=== PATIENT | female | born 1940 | race Caucasian/White ===

== ENCOUNTER 2021-11-21 08:51 | Inpatient (IN) | payer MEDICARE ==
[~2021-11-21] VITALS: Ht 170.2 cm; Wt 52.0 kg
[2021-11-21] MEDS ORDERED: FLEET GLYCERIN (08:55)
[2021-11-21] MEDS ORDERED: MENT118G TP (08:56)
[2021-11-21] MEDS ORDERED: WOMEN MULTIVITAMIN PO (09:00)
[2021-11-21] MEDS ORDERED: RIVA15TA PO (09:00)
[2021-11-21] MEDS ORDERED: LEVO25TA4 PO (09:00)
[2021-11-21] MEDS ORDERED: citalopram PO (09:00)
[2021-11-21] MEDS ORDERED: ALPR0.254 PO (09:00)
[2021-11-21] MEDS ORDERED: ALPR0.5T6 PO (09:00)
[2021-11-21] MEDS ORDERED: MAGNESIUM HYDROXIDE 2,400 MG/30 ML ORAL.SUSP. PO PRN (11:30)
[2021-11-21] MEDS ORDERED: MAG HYDROX/AL HYDROX/SIMETH 30 ML ORAL.SUSP PO PRN (11:30)
[2021-11-21] MEDS ORDERED: NON FORMULARY ITEM (Menthol (Biofreeze) 1 APP) TP PRN (11:45)
[2021-11-21] MEDS ORDERED: ALPRAZolam 0.5 MG TABLET PO PRN (11:45)
[2021-11-21] MEDS ORDERED: GLYCERIN ADULT 1 SUPP.RECT. PR PRN (11:45)
[2021-11-21] MEDS ORDERED: ALPRAZolam 0.25 MG TABLET PO PRN (11:45)
[2021-11-21 11:56] VITALS: BP 120/64
[2021-11-21 13:41] LABS: BASO % 1 % (0-3); EOS % 1 % (0-3); HEMATOCRIT 32.8 % (36.0-47.0); HEMOGLOBIN 10.7 g/dL (12.0-15.5); LYMPH # 0.8 x10^3/uL (1.0-4.8); LYMPH % 16 % (24-48); MEAN CORPUSCULAR HEMOGLOBIN 32 pg (25-35); MEAN CORPUSCULAR HGB CONC 33 g/dL (31-37); MEAN CORPUSCULAR VOLUME 98 fL (79-100); MONO # 0.4 x10^3/uL (0.0-1.1); MONO % 7 % (0-9); NEUT # 3.9 x10^3uL (1.8-7.7); NEUT % 75 % (31-73); PLATELET COUNT 263 x10^3/uL (140-400); RED BLOOD COUNT 3.34 x10^6/uL (3.50-5.40); RED CELL DISTRIBUTION WIDTH 16.1 % (11.5-14.5); WHITE BLOOD COUNT 5.2 x10^3/uL (4.0-11.0)
[2021-11-21 14:14] LABS: ALBUMIN 3.7 g/dL (3.4-5.0); CALCIUM 8.7 mg/dL (8.5-10.1); GFR 53.3; MAGNESIUM 2.2 mg/dL (1.8-2.4); POTASSIUM 3.8 mmol/L (3.5-5.1); TOTAL BILIRUBIN 0.4 mg/dL (0.2-1.0); TOTAL PROTEIN 7.3 g/dL (6.4-8.2)
[2021-11-21 15:49] VITALS: BP 128/84
[2021-11-21] MEDS: RIVAROXABAN 15 MG TABLET. PO SCH (17:00)
[2021-11-21] MEDS: ALPRAZolam 0.5 MG TABLET PO SCH (20:28)
[2021-11-21] MEDS ORDERED: ALPRAZolam 0.5 MG TABLET PO SCH (21:00)
[2021-11-21 22:12] LABS: THYROXINE 5.1 ug/dL (4.5-12.0)
[2021-11-21 23:07] LABS: HEMOGLOBIN A1C 5.7 % (4.8-5.6)
[2021-11-22 05:52] VITALS: BP 146/69
[2021-11-22] MEDS: LEVOTHYROXINE 25 MCG TABLET. PO SCH (07:30)
[2021-11-22] MEDS: MULTIVITAMIN with MINERAL TABLET. PO SCH (09:00)
[2021-11-22] MEDS: CITALOPRAM 10 MG TABLET. PO SCH (09:00)
[2021-11-22] MEDS: ALPRAZolam 0.5 MG TABLET PO SCH ×2 (09:00→20:39)
[2021-11-22 11:42] LABS: THYROID STIM HORMONE (TSH) 2.151 uIU/mL (0.358-3.740)
--- NOTE | 2021-11-22 13:33 | CONS ---
DATE OF CONSULTATION: 11/22/2021 ATTENDING PHYSICIAN: Dr. Lockhart. We are asked to see this patient for medical consultation. HISTORY OF PRESENT ILLNESS: The patient is the [id number] of Ursula Girard, who works on the unit. She goes by her middle name, Maryann. She is 81 years old. She has been at a retirement in [place], [place] for the last several months. She has become very paranoid. She is demented. She has some suicidal ideation. She is very delusional, does not want to live anymore, thinks she has been kidnapped and being held hostage, thinks her family has abandoned her. She is very confused and forgetful. She is admitted then for further treatment and evaluation. PAST MEDICAL HISTORY: Interesting, she has had paroxysmal atrial fibrillation, on chronic anticoagulation; hypothyroidism and a mitral valve repair in 08/2021. She has had mitral valvulotomy. History of migraine headaches and irritable bowel syndrome. CURRENT MEDICATIONS: Include the following: She is on scheduled alprazolam, Synthroid, menthol, Xarelto 15 mg daily, citalopram and p.r.n. Fleet Glycerin. ALLERGIES: She has no known drug allergies. SOCIAL HISTORY: She is a nonsmoker, nondrinker. FAMILY HISTORY: Unobtainable. REVIEW OF SYSTEMS: Unobtainable due to patient's confusion. PHYSICAL EXAMINATION: GENERAL: When I saw her, this is a pleasant female who appears very confused. INITIAL VITAL SIGNS: Showed a blood pressure of 128/84, pulse is regular. She is afebrile. Oxygen saturation 97% on room air. HEENT: Head is without trauma. Pupils are reactive. Sclerae nonicteric. The oropharynx is clear. LUNGS: Clear to auscultation. CARDIOVASCULAR: Regular heart tones. I did not appreciate any gallops or significant murmurs. Peripheral pulses are palpable and full. ABDOMEN: Soft. EXTREMITIES: Without edema. NEUROLOGIC: Profoundly confused and paranoid. SKIN: Warm and dry. PERTINENT LABORATORY STUDIES: Hemoglobin on admission was 10.7 g/dL with a white count of 5200. Electrolytes within normal range. Hemoglobin A1c 5.7. Transaminases were normal. ASSESSMENT: 1. This 81-year-old female has profound dementia with behavioral issues. 2. Paranoia with delusions. 3. History of mitral valve repair, hemodynamically stable. 4. Paroxysmal atrial fibrillation. 5. Chronic anticoagulation. 6. Hypothyroidism, on replacement. RECOMMENDATIONS: 1. This patient has been seen as medically stable from my standpoint. 2. I reviewed her medication. These should be continued as scheduled. Thank you again for asking me to see the patient for medical consultation. We should gladly follow along closely during her inpatient stay. LONI DR: Roxi TID: [id number] CC: BERNADETTE MENDIETA MD
--- NOTE | 2021-11-22 13:36 | PN ---
DATE: 11/22/2021 SUBJECTIVE: The patient was seen today, met with the staff. Chart was reviewed and also covering for Dr. Rudd. Staff reports increased confusion, social withdrawal. She was able to orient to her surroundings. She knew that she was in the hospital, but cannot remember the name. The patient also highly anxious and nervous, admits she is upset and angry because she is here and also she has no awareness of her family members, even she does not know whether she has a son or not. The patient's behavior fluctuates. The patient also having difficulty identifying her feelings. The patient has made repeated statements. She does not want to live anymore, but denies that she is depressed. The patient is having difficulty coping with changes in her life including her significant cognitive deficits dealing with multiple medical issues and also being suspicious at times, not trusting anyone. OBSERVATION: VITAL SIGNS: Temperature 98.9, blood pressure 146/69, pulse 83, respirations 16, O2 sat 96%. GENERAL: Slept about 7 hours last night. The patient is not having any physical complaints. The patient has been staying in bed most of the time, isolating herself, interacts with the staff fairly well. The patient's appetite is fair. CURRENT MEDICATIONS: The patient's current medications include Celexa 10 mg daily, Xanax 0.25 mg twice a day, olanzapine 2.5 mg q. 2 hours p.r.n. The patient is also on Celexa 10 mg daily. The patient is not having any side effects. The patient continues to be under observation. No major changes in medication she had. LABORATORY DATA: The patient's lab reviewed. Her hemoglobin was 10.7. The patient's hemoglobin A1c was 5.7. ALT was 81, alkaline phosphatase 150. ASSESSMENT: Major neurocognitive disorder, most likely Alzheimer's versus vascular with depression and behavioral problems. PLAN: To continue with the current treatment plan. LENGTH OF STAY: 7-[address]: Shayne TID: [id number]
[2021-11-22 15:43] VITALS: BP 115/76
[2021-11-22] MEDS: RIVAROXABAN 15 MG TABLET. PO SCH (17:00)
--- NOTE | 2021-11-22 17:51 | PSYEV ---
DATE OF SERVICE: 11/21/2021 PSYCHIATRIC EVALUATION DATE OF SERVICE: 11/21/2021. REASON FOR ADMISSION: This 81-year-old single female was [facility] for emergency stabilization of acute psychiatric crisis. The patient apparently was brought here from home and she was at [facility] for a period of time. According to the staff, she tried to elope, planning to call the police, sundowning and being delusional and claims that she lost her identity. The patient also made statement that she was kidnapped, she did not know about her son or family and also feeling paranoid, not sleeping, fearful. CHIEF COMPLAINT: "I'm not sure of myself, even I am not sure it's me. I do not have any family. I had a son. I want to be safe and I do not want to prolong my life anymore. It all started after I had the surgery for mitral valve replacement, apparently I had to be hospitalized twice and I was told my problem started since then.? Apparently, she had surgery in 08/2021. The patient apparently has been at the [facility] just for 1 week. The patient is currently confused, somewhat delusional, not understanding what is going on. She is able to orient herself briefly and she knew that it was [facility] and the patient states she has been experiencing all kind of symptoms, not being real, and also feeling that people are against her and also admits to having nervous breakdown a couple of times. HISTORY OF PRESENT ILLNESS: The patient apparently came from an assisted living facility where she was for a week, prior to that she was living by herself. The patient seems to have a lot of physical problems lately. The patient also has seen a neurologist, had a CT scan of the head, which showed no acute changes, but indicative of changes in white matter consistent with age. The patient denies of having had any stroke. The patient states she is originally from [place], was for 45 years ____ , apparently, they travelled a lot. She is a RN, did different work in nursing. 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 The patient stated she had a twin, one , and now claims she has no contact with her son, even she does not know where he is. PAST MEDICAL HISTORY: The patient has a history of atrial fibrillation, recent mitral valve replacement, hypothyroidism. Apparently, she had thyroidectomy, removed two-thirds of her thyroid. She also had a MitraClip in 07/2021, history of migraine headaches, IBS. The patient also had problems with cognitive disorder lately and recent acute confusion, disorientation and loss of identity. PAST PSYCHIATRIC HISTORY: The patient denies that she had been on any psychiatric treatment in the past and she was very active, she used to stay happily with the family. The patient recently started on Xanax 0.25 mg twice a day and p.r.n. and was supposed to be increased to 0.5 mg twice a day starting from tomorrow since she was at the [facility]. PSYCHOSOCIAL HISTORY: The patient is originally from [facility]. She is for 45 years. She had twins, one . The patient apparently did fairly well, and according to her, her problems started in the last few months and she relates worsening of her problems since she had surgery in 08/2021. The patient also admits she had some problems with her cognition even prior to that. CURRENT MEDICATIONS: Include citalopram 10 mg at night, Xanax 0.25 mg twice a day. The patient apparently had a full lab workup prior to coming here. SUBSTANCE ABUSE HISTORY: The patient denies of having had any problems with substance abuse, drank occasionally, but she has not had any alcohol for several years. The patient denies of any physical, emotional, or sexual abuse in the past. MENTAL STATUS EXAMINATION: The patient appears younger than her stated age, alert, oriented to her surroundings, able to make eye contact. The patient started struggling when she was talking about her problems. She did not know what was going on with her. She is not able to understand ____ feeling this way and she did not know her name at one time and apparently had altered mental status a couple of times. Her speech was clear, monotone, decreased rate and rhythm. Her affect and mood showed she is withdrawn, some blunting of affect, somewhat puzzled and also guarded and having difficulty understanding her current situation and also she feels she lost touch with the whole family. Her speech was monotone, but no evidence of any speech impediment. Affect and mood showed she is anxious, nervous, withdrawn, constricted affect. The patient also made statements frequently that she wanted to and also corrected herself and said she does not want to prolong her life, she does not want to be DNR. The patient does admit she has been delusional, paranoid, at times having hallucinations because everything was unreal to her. It appears the patient's symptoms persisted for the past several months, but the patient has no clear diagnosis of dementia. She is oriented to her surroundings. Her memory is impaired for recent events. The patient was able to recall a few things from the past. The patient was not able to do any serial sevens. The patient is having difficulty with recall. The patient is lacking insight to her problems. Her judgment is impaired. The patient appears to be functioning on an average level of intelligence. 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 She was able to manage and claims that after she had a surgery in August her problems gotten really worse. The patient apparently has a supportive family. WEAKNESSES: The patient is currently confused, somewhat delusional and paranoid, and exhibiting marked cognitive deficits. ADMITTING DIAGNOSES: AXIS: 1. Major neurocognitive disorder, most likely Alzheimer's versus vascular, with depression, delusions and behavior problems. 2. Generalized anxiety disorder. AXIS II: None. AXIS III: As stated above. INITIAL TREATMENT PLAN: The patient was admitted to inpatient program at [facility] for further observation. The patient will be seen by the neurologist and also patient's lab will be monitored. The patient will continue on Xanax 0.25 mg twice a day and we will consider starting her on a mood stabilizer if she continues to exhibit increased confusion and increased psychomotor activity and elopement risk. The patient also to continue on her citalopram 10 mg daily. The patient is encouraged to attend all the activities including individual therapy, group therapy and activity therapy. ESTIMATED LENGTH OF STAY: 7-10 days. BARBRA/ERICA/PRAVEENA DR: Shayne TID: [id number]
[2021-11-23 05:51] VITALS: BP 147/66
[2021-11-23] MEDS: LEVOTHYROXINE 25 MCG TABLET. PO SCH (07:30)
[2021-11-23] MEDS: MULTIVITAMIN with MINERAL TABLET. PO SCH (08:24)
[2021-11-23] MEDS: ALPRAZolam 0.5 MG TABLET PO SCH ×2 (09:00→19:52)
[2021-11-23] MEDS: CITALOPRAM 10 MG TABLET. PO SCH (09:00)
[2021-11-23 15:44] VITALS: BP 123/78
[2021-11-23] MEDS: RIVAROXABAN 15 MG TABLET. PO SCH (17:00)
--- NOTE | 2021-11-23 21:57 | PN ---
DATE: 11/23/2021 SUBJECTIVE: The patient was seen today, met with the staff, chart reviewed. Staff reports significant change with her behavior since last night. Apparently, they have to more in a quiet area because of her agitation, paranoia, being delusional, also threatening staff, yelling, screaming, banging the door, refusing to let anybody come to her room and also intimidating other residents. The patient also refused her medications, getting angry with the staff, not trusting anyone. The patient also refused to deal with anybody here and she did not think that the doctor is the real doctor, not trusting anyone. She also made statement they are coming after her, also her body parts and money. She is also demanding to see her family. The patient during the assessment became very angry, upset and not wanting anyone. She is confused, very delusional and paranoid and also increased psychomotor activity. OBSERVATION: VITAL SIGNS: Temperature 98.0, blood pressure 149/78, pulse 71, respirations 16, O2 sat 100%. GENERAL: Slept about 6 hours last night. The patient's appetite decreased. CURRENT MEDICATIONS: Xanax 0.25 mg twice a day. Escitalopram was increased to 20 mg from 10 mg daily. Also started on Abilify 5 mg daily and Zyprexa 2.5 mg q. 2 hours p.r.n. LABORATORY DATA: The patient's lab reviewed. ASSESSMENT: 1. Psychotic disorder, unspecified. 2. Major neurocognitive disorder with psychotic symptoms. 3. Mood disorder, unspecified. PLAN: Continue with the treatment. The patient will be under close observation. LENGTH OF STAY: 7 to [address]: Shayne TID: [id number]
[2021-11-24] MEDS: LEVOTHYROXINE 25 MCG TABLET. PO SCH (05:28)
[2021-11-24 05:47] VITALS: BP 147/68
[2021-11-24 05:51] LABS: BACTERIA,URINE FEW /HPF (0-FEW); BILIRUBIN,URINE NEG (NEG); CLARITY,URINE HAZY; COLOR,URINE YELLOW; GLUCOSE,URINE NEG (NEG); NITRITE,URINE NEG (NEG); RBC,URINE 0 /HPF (0-2); SQUAMOUS EPITHELIAL CELL,UR FEW /LPF; UROBILINOGEN,URINE 0.2 mg/dL (0.2 mg/dL)
[2021-11-24] MEDS: MULTIVITAMIN with MINERAL TABLET. PO SCH (07:36)
[2021-11-24] MEDS: ALPRAZolam 0.5 MG TABLET PO SCH ×2 (07:46→19:48)
[2021-11-24] MEDS: CITALOPRAM 20 MG TABLET. PO SCH (07:46)
[2021-11-24] MEDS ORDERED: ARIPiprazole 5 MG TABLET PO SCH (09:00)
[2021-11-24 15:58] VITALS: BP 152/65
[2021-11-24] MEDS: RIVAROXABAN 15 MG TABLET. PO SCH (16:44)
--- NOTE | 2021-11-24 21:39 | PN ---
DATE: 11/24/2021 SUBJECTIVE: The patient was seen today, met with the staff. Chart was reviewed. Also covering for Dr. Rudd. Staff reports slight improvement today, did not have any major psychotic symptoms, but still labile at times. The patient apparently took her medications without assistance and during breakfast started yelling at staff about wanting the doors open so that she can leave the unit, but she was able to redirect today. The patient recently exhibited severe problems including making statements "I don't want to be set on fire. I am going to burn." The patient also making inappropriate comments, confused, very delusional, paranoid, not trusting anyone at times. The patient had episodes of acute psychotic episodes where she thinks she is going to and also she made a statement "I am in a chamber." CURRENT MEDICATIONS: The patient's current medications reviewed, includes Abilify 10 mg daily, Celexa 20 mg daily, Xanax 0.25 mg twice a day, olanzapine 2.5 mg q. 2 hours p.r.n. ASSESSMENT: 1. Psychotic disorder, unspecified. 2. Major neurocognitive disorder with psychotic features. 3. Mood disorder, unspecified. PLAN: Continue with the current treatment. The patient's Abilify to be increased to 10 mg daily and we will consider switching to Latuda if she does not respond to Abilify and continue to manifest acute psychotic symptoms. LENGTH OF STAY: 7-10 days. MEG VARGAS: Shayne TID: [id number]
[2021-11-24] MEDS: traZODone 50 MG TABLET. PO PRN (22:28)
[2021-11-25 05:30] VITALS: BP 152/82
[2021-11-25] MEDS: LEVOTHYROXINE 25 MCG TABLET. PO SCH (05:44)
[2021-11-25] MEDS: MULTIVITAMIN with MINERAL TABLET. PO SCH ×2 (07:53→09:00)
[2021-11-25] MEDS: CITALOPRAM 20 MG TABLET. PO SCH (07:53)
[2021-11-25] MEDS: ALPRAZolam 0.5 MG TABLET PO SCH ×2 (07:54→20:03)
[2021-11-25] MEDS: ARIPiprazole 10 MG TABLET PO SCH (07:55)
[2021-11-25] MEDS: ACETAMINOPHEN 325 MG TABLET PO PRN ×2 (11:30→12:55)
--- NOTE | 2021-11-25 12:24 | PN ---
DATE: 11/25/2021 SUBJECTIVE: The patient was seen today, met with the staff, chart reviewed. Also, covering for Dr. Rudd. Staff reports increased confusion, mostly in the evenings; extreme anxiety, agitation, delusional, also restless, also paranoid, not trusting anyone. The patient is constantly fearful that people are coming after her. The patient also feels that she is in danger. The patient also having auditory hallucinations. OBSERVATION: VITAL SIGNS: Temperature 97.6, blood pressure 152/82, pulse 89, respirations 18, O2 sat 94%. Slept about 5 hours last night. The patient's appetite fair. The patient is exhibiting increased psychotic symptoms, delusional thinking and also acting upon her delusions. The patient is not able to process information. She is disorganized with her thinking and also increased confusion and also having difficulty with short-term memory. The patient is not showing any involuntary movements or any speech impediment. The patient does exhibit significant mood swings. CURRENT MEDICATIONS: Include Abilify 10 mg daily, Xanax 0.25 mg twice a day, Celexa 20 mg daily. She is also on olanzapine 2.5 mg q. 2 hours p.r.n. ASSESSMENT: 1. Psychotic disorder, unspecified. 2. Major neurocognitive disorder with psychotic features, also rule out Lewy body disease. 3. Mood disorder, unspecified. PLAN: Continue with the current treatment. LENGTH OF STAY: Seven to ten days. ANA LAURA DR: Shayne TID: [id number]
[2021-11-25 15:38] VITALS: BP 166/87
[2021-11-25] MEDS: RIVAROXABAN 15 MG TABLET. PO SCH (17:00)
[2021-11-25] MEDS: traZODone 50 MG TABLET. PO PRN (20:02)
[2021-11-26 06:02] VITALS: BP 147/72
[2021-11-26] MEDS: LEVOTHYROXINE 25 MCG TABLET. PO SCH (06:14)
[2021-11-26] MEDS: ALPRAZolam 0.5 MG TABLET PO SCH (08:51)
[2021-11-26] MEDS: METHYL SALICYLATE/MENTHOL TOPICAL OINTMENT 57GM TUBE. TP PRN (08:51)
[2021-11-26] MEDS: ACETAMINOPHEN 325 MG TABLET PO PRN (08:51)
[2021-11-26] MEDS: ARIPiprazole 10 MG TABLET PO SCH (08:51)
[2021-11-26] MEDS: MULTIVITAMIN with MINERAL TABLET. PO SCH (08:51)
[2021-11-26] MEDS: CITALOPRAM 20 MG TABLET. PO SCH (08:51)
--- NOTE | 2021-11-26 10:42 | CONS ---
DATE OF CONSULTATION: 11/25/2021 NEUROLOGY CONSULTATION REFERRING PHYSICIAN: Dr. Isabelle Sosa. REASON FOR CONSULTATION: Mental status changes and abnormal head CT scan. HISTORY OF PRESENT ILLNESS: This is an 81-year-old right-handed female who was [facility] on account of acute mental status changes as she became confused, disoriented, and delusional along with her persistent paranoid thoughts. According to the patient, she underwent mitral valve in 08/2021. Subsequently, she was transferred to [facility] for 1 week before she went home as she by self at home, she starts becomes depressed, anxious and paranoid. She tried to call the police and tried to elope. She became realistic about herself. She feels very anxious and feared that everybody try to get rid of her and hurt her. Neuro consult was requested as the patient started having acute mental status changes. She has been seen by a neurologist at [facility] and a head CT scan was performed and revealed evidence of left posterior limb of the internal capsule infarct; however, the patient denies any history of stroke or any neurological deficits. She denies headaches, visual disturbances, chest pain, shortness of breath or palpitation, dysarthria or dysphagia. She denies weakness or falls. PAST MEDICAL HISTORY: Significant for atrial fibrillation, status post mitral valve replacement in 08/2021, hypothyroidism and status post partial thyroidectomy several years ago, intermittent migraine-like headaches. PAST PSYCHIATRIC HISTORY: Consistent with depressions, anxiety and intermittent behavior disturbances. FAMILY HISTORY: Not obtainable. SOCIAL HISTORY: The patient stated she is single. She lives alone. She used to be a traveling nurse. She has 1 Living son. She denies smoking, alcohol drinking or illicit drug use. CURRENT MEDICATIONS: Citalopram, Xarelto 50 mg daily, Abilify 10 mg daily, citalopram 20 mg daily, levothyroxine 25 mcg daily, multivitamins and calcium, Xanax 0.25 mg b.i.d., olanzapine 2.5 mg q. 2 hours p.r.n. for agitation, and Tylenol p.r.n. ALLERGIES: No known drug allergies. REVIEW OF SYSTEMS: A 10-point review of system was performed as mentioned above in history of present illness, otherwise unremarkable. PHYSICAL EXAMINATION: GENERAL: Well-developed, well-nourished female in no acute distress. VITAL SIGNS: Blood pressure 166/87, respiratory rate 16, pulse is 94 and regular, oxygen saturation 96% on room air. HEENT: Normocephalic, atraumatic. otherwise unremarkable. NECK: Supple, negative for carotid bruit, lymphadenopathy or thyromegaly. LUNGS: Clear to A and P. CARDIOVASCULAR: Regular rhythm. Normal S1, S2. There is no S3, S4 murmur. ABDOMEN: Soft. Bowel sounds positive. EXTREMITIES: Negative for cyanosis, clubbing or pedal edema. However, superficial bleeding was noted over both legs, probably due to scratching and being on Xarelto. NEUROLOGIC: Mental Status: The patient is alert and oriented to herself and she knows she is in the hospital. The speech is somewhat fluent. There is no language dysfunction. The patient recalls 2/3 immediately and 1/3 after 1 and 3 minutes. Judgment and abstracting thinking are fair. The patient denies hallucination or delusion. Cranial nerves: Visual king are full. The pupils are reactive to light and accommodation. The extraocular movements are intact. There is no nystagmus. There is no facial motor or sensory deficit. Hearing is intact bilaterally. The palate is elevated symmetrically. Sternocleidomastoid muscles are powerful bilaterally. The patient shrugs her shoulders symmetrically, protrudes her tongue in the midline without fasciculation or atrophy. Motor exam: No focal muscle bulk wasting. The tone is normal. The strength is 5/5 throughout. Sensory examination revealed normal pinprick and light touch, vibratory and position senses. Deep tendon reflexes were symmetric and hypoactive without pathology responses. Gait and coordination were normal. DIAGNOSTIC DATA: Previous head CT scan revealed evidence of generalized cerebral and cerebellar atrophy with small vessel ischemic changes along with left internal capsule infarct. LABORATORY DATA: CBC revealed white blood cells of 5.2 thousand, hemoglobin 10.7, hematocrit 32.8, platelet count 263,000. Chemistry revealed sodium of 140, potassium 3.8, chloride 102, CO2 of 27, BUN 21, creatinine 1, glucose 132. Hemoglobin A1c is 5.7. Magnesium and iron are normal. Liver enzymes are elevated, ALT at 81. Lipid profile revealed high triglycerides at 215 with high cholesterol at 298 with high LDL 175. Normal vitamin B12 at 510 with slightly low vitamin D and normal thyroid profile. D-dimer is high at 0.65. Urinalysis is trace leukocyte esterase with white blood cells of 5-10. SARS-CoV-2 PCR not detected. IMPRESSION: 1. Abnormal previous head CT scan consistent with left internal capsule lacunar infarct with generalized cerebral and cerebellar atrophy without significant neurological deficits on neurological examination. 2. Persistent atrial fibrillation and status post mitral valve replacement without significant cardiac symptoms as chest pain or shortness of breath. 3. Multiple medical problems include hyperlipidemia, history of hypothyroidism, and anemia. 4. Dementia, probably of Alzheimer type in moderate severity. 5. Multiple psychiatric problems include anxiety disorders, intermittent psychosis and possible underlying depression. 6. Questionable urinary tract infection. RECOMMENDATIONS: 1. Continue with current medical and psychiatric care. 2. The patient should be on cholesterol-lowering medication Lipitor. 3. We will repeat urinalysis to rule out urinary tract infection. MONTRELL/ADRIANA DR: Iman TID: [id number]
--- NOTE | 2021-11-26 12:56 | TX PLAN ---
Interdisciplinary Tx Plan Admission Information Nov 21, 2021 at 08:51 Legal Status (on Admission): Voluntary DPOA/Guardian Name: Huey Hurley) and Ursula Nesscele Contact Phone Number: Sergio Rafal)[phone] or Ursula (C)[phone] Other Contact Name: Fernanda Cedillo Other Contact Phone: Fernanda (Poonam)[phone] (C)[phone] Verified Code Status: DNR Allergies: Coded Allergies: No Known Drug Allergies (Unverified , 11/21/21) Diagnoses Primary Diagnosis: 1. Major neurocognitive disorder, most likely Alzheimer's versus vascular, with depression, delusions and behavior problems. 2. Generalized anxiety disorder. Reasons for Admission: Delusions, Agitated, Sig. Change Sleep, Anxiety/Panic, Suicidal ideation, Suspicious/paranoid, Confusion/Disoriented Problem in Patient's Words: Per pt, at time of assessment, she believed she was in the hospital to be treated for invisible strokes and that she is to have a proceedure "on the other side of that wall". Also, pt believes that she has been harmful to others thinking that she has committed a horrible crime. Furthermore, pt has expressed that "they" have told her that she doesn't have any family and that Sergio is not her son and that Vernon and Sergio are not . Additional Admission Comments: Per intake record, pt attempting to elope facility, voiced plans to call police, sundowning, experiencing SI, doesn't want to live, delusional, thinks she has been kidnapped or being held hostage, thinks she doesn't have a family and has been abandoned, paranoid, and not sleeping. Problems Active Problems: Delusions, agitation, refusing medications, paranoia, suspicious, confusion, disorganization, poor sleep Inactive Problems: None Pt Strengths/Limitations Ability for Collins: Poor Cognitive Functioning/Ability: Fair Communication Skills/Ability: Fair Financial Resources: Good Insight/Judgement: Poor Intellectual Ability: Good Physical Health: Poor Social Skills: Fair Stability in Family: Good Stability in School/Work: Good Verbal Skills: Good Discharge Criteria Discharge Criteria: Able meet basic life need, No need for close observ., Able to meet health needs, Adequate arrangements @DC, Adequate self-care, Verbal commit med comply, Improved behavior, Improved mood/thought Other Discharge Comments: None at this time. Preliminary Discharge Plan Preliminary DC Plan: Placement Needed, Current Living Arrange. Initial D/C Plan Pt will plan to return to current living facility at time of discharge vs finding alternative living facility depending on pt progress throughout treatment here at [facility]. Identified Discharge Needs: Pending course of treatment. Currently Utilized Resources Currently Utilized Resources/P: PCP/Nurse Practitioner-Janine Chisholm Son-Sergio CHINMAY-Ursula Grandson-Viraj Granddaughter-Leanne Referrals Community Resources: None at this time. Identified Problems/Hx/Goals Objectives/Short-Term Goals Short Term Goals: Control abnormal behavior, Dec. Anxiety/Panic, Dec. Hallucination/Delus, Dec. Symp. Depression, Medication Stabilization, Monitor Med Effects, No Suicidal/Raffy. ideation, Prevent Deterioration, Promote Coping Skill Short Term Goals in Patient's: Per pt, "I would like to find out the truth." Per family, they would like for pt's paranoia and delusional thinking to decrease. They feel that pt needs to be evaluated to determine cause of recent behavioral changes and find a course of treatment ideal for pt needs. Interventions/Frequency Staff Interventions/Frequency&: Psychiatry to assess pt three times per week for medication management. Nursing to assess behaviors, monitor medications, and complete 15 minute checks daily. Social work to see pt at least two times weekly to aid in return to placement. Activities to encourage pt to participate in group activities daily. 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 Education: Pt graduated high school and later graduated from [employer] with a nursing degree. Community Follow-up PCP Possibly f/u with whitewasher and psychiatrist. Community Provider/Family Inpu: Pt provided input in her assessment as did family. Treatment Plan Explained Patient/[place] Professional had this treatment plan explained to him/her as indicated by the signature below and has been given the opportunity to ask questions and make suggestions: Date: Patient/[place]ake Professional Signature: Additional Comments Treatment plan was completed on 11/25/21 and entered on 11/26/21. LUISA BLANCO Nov 26, 2021 12:56
[2021-11-26] MEDS: RIVAROXABAN 15 MG TABLET. PO SCH (17:27)
--- NOTE | 2021-11-27 03:40 | PN ---
DATE: 11/26/2021 SUBJECTIVE: The patient was seen today, met with the staff, chart reviewed. Also, covering for Dr. Rudd. Staff reports continued behavior problems, inability to follow directions, very delusional, paranoid, constantly making a statement that she is going to be burnt alive here and also while talking she said "I could hear the matchstick being light up." The patient also apprehensive, guarded, scanning her environment constantly, as though she is having either visual or auditory hallucinations. The patient constantly making a statement "I want to , I don't want to be burnt alive and I don't want to be taken advantage of by people" and also previously talked about people are trying to take her body parts. I also reviewed the medical records from [facility] where she was hospitalized in 07/2021. At that time, she had problems with atrial fibrillation and also she had a CT scan, which showed mild cerebral volume loss and minimal nonspecific white matter disease, likely chronic small vessel ischemia, also chronic lacunar infarct in the posterior limb, left internal capsule. The patient also had multiple physical problems including atrial fibrillation. Also had hyperlipidemia, hypertension, hypothyroidism, IBS, mitral regurgitation, renal cell carcinoma, skin cancer, SVT, tricuspid regurgitation. Also mentioned about alcohol, she has been drinking 2 glasses daily, total of 14 glasses per week for several years. OBSERVATION: VITAL SIGNS: Temperature 98.0, blood pressure 147/72, pulse 86, respirations 16, O2 sat 95%. GENERAL: Slept about 8 hours last night. LABORATORY DATA: The patient's lab reviewed. The patient's hemoglobin was 10.7, RBC 3.3. The patient's hemoglobin A1c was 5.7. Patient's triglycerides were elevated to 15. Cholesterol 298, LDL 175, and HDL 80. The patient's sodium was 140, potassium 3.8. Apparently when she was hospitalized to in July, her sodium level was 117. The patient denies of having had any seizures. The patient's liver enzymes were also elevated. ALT 81, alkaline phosphatase 150. CURRENT MEDICATIONS: Include Abilify 10 mg daily, trazodone 50 mg at night, Celexa 20 mg daily, Xanax 0.25 mg twice a day. She is also on olanzapine 2.5 mg q. 2 hours p.r.n. ASSESSMENT: 1. Psychotic disorder, unspecified. 2. Major neurocognitive disorder with psychotic features. 3. Mood disorder, unspecified. PLAN: Continue with Abilify 10 mg daily at this time and the patient continues to have problems with delusions, behavior problems. We will consider switching to Latuda. KARLY DR: Shayne TID: [id number]
[2021-11-27] MEDS: LEVOTHYROXINE 25 MCG TABLET. PO SCH (05:37)
[2021-11-27 06:04] VITALS: BP 160/74
[2021-11-27] MEDS: MULTIVITAMIN with MINERAL TABLET. PO SCH (08:17)
[2021-11-27] MEDS: ARIPiprazole 10 MG TABLET PO SCH (08:17)
[2021-11-27] MEDS: CITALOPRAM 20 MG TABLET. PO SCH (08:17)
[2021-11-27] MEDS: ALPRAZolam 0.25 MG TABLET PO SCH ×2 (08:17→20:52)
[2021-11-27 15:38] VITALS: BP 155/77
[2021-11-27] MEDS: LURASIDONE 40 MG TABLET. PO SCH (17:32)
[2021-11-27] MEDS: RIVAROXABAN 15 MG TABLET. PO SCH (17:32)
[2021-11-27] MEDS: ACETAMINOPHEN 325 MG TABLET PO PRN (22:51)
[2021-11-27] MEDS: traZODone 50 MG TABLET. PO PRN (22:51)
[2021-11-28] MEDS: ALPRAZolam 0.25 MG TABLET PO SCH (05:40)
[2021-11-28] MEDS: LEVOTHYROXINE 25 MCG TABLET. PO SCH (05:41)
[2021-11-28 06:09] VITALS: BP 134/75
[2021-11-28 07:06] LABS: BASO % 1 % (0-3); EOS % 1 % (0-3); HEMATOCRIT 29.5 % (36.0-47.0); HEMOGLOBIN 9.8 g/dL (12.0-15.5); LYMPH # 0.5 x10^3/uL (1.0-4.8); LYMPH % 12 % (24-48); MEAN CORPUSCULAR HEMOGLOBIN 32 pg (25-35); MEAN CORPUSCULAR HGB CONC 33 g/dL (31-37); MEAN CORPUSCULAR VOLUME 97 fL (79-100); MONO # 0.5 x10^3/uL (0.0-1.1); MONO % 13 % (0-9); NEUT # 2.8 x10^3uL (1.8-7.7); NEUT % 73 % (31-73); PLATELET COUNT 200 x10^3/uL (140-400); RED BLOOD COUNT 3.05 x10^6/uL (3.50-5.40); RED CELL DISTRIBUTION WIDTH 15.5 % (11.5-14.5); WHITE BLOOD COUNT 3.8 x10^3/uL (4.0-11.0)
[2021-11-28 07:39] LABS: ALBUMIN 3.6 g/dL (3.4-5.0); ALBUMIN/GLOBULIN RATIO 1.4 (1.0-1.7); CALCIUM 8.4 mg/dL (8.5-10.1); CREATININE 0.9 mg/dL (0.6-1.0); GFR 60.2; POTASSIUM 3.6 mmol/L (3.5-5.1); TOTAL BILIRUBIN 0.3 mg/dL (0.2-1.0); TOTAL PROTEIN 6.2 g/dL (6.4-8.2)
--- NOTE | 2021-11-28 07:43 | PN ---
DATE: 11/27/2021 SUBJECTIVE: The patient was seen today, met with the staff, chart reviewed, also covering for Dr. Rudd. The patient is still delusional, restless, mostly at night, disorganized with thinking. The patient also chasing staff down the hallway and argumentative, but her behavior has improved this morning. The patient is much calmer, did not verbalize any of her delusions, but still suspicious, paranoid, continues to have psychotic symptoms. The patient was able to orient herself. She knew she was in the hospital. She knew it was October and the year was 2020. The patient is having difficulty recalling some of the events from the past. The patient was also confronted about her drinking ____ when she went to [facility] in 07/2021. The patient states usually she used to drink at least 2 drinks at night, but has not had a drink at least for the past 2 months. The patient's liver enzymes were slightly elevated. OBSERVATION: VITAL SIGNS: Temperature 97.4, blood pressure 160/74, pulse 63, respirations 16, O2 sat 96%. GENERAL: Slept about 8 hours last night. The patient's appetite is fair. LABORATORY DATA: The patient's lab reviewed. No change. ASSESSMENT: 1. Major neurocognitive disorder with psychotic symptoms. 2. Generalized anxiety disorder. 3. Mood disorder, unspecified. PLAN: Continue with the current treatment plan. The patient will continue on her Xanax 0.25 mg twice a day. The patient's Abilify to be decreased to 5 mg daily and she will be started on Latuda 60 mg in the evening. The patient will have repeat LFT including GGT and also blood ammonia level. LENGTH OF STAY: [address]: Shayne TID: [id number]
[2021-11-28] MEDS: MULTIVITAMIN with MINERAL TABLET. PO SCH (08:24)
[2021-11-28] MEDS: CITALOPRAM 20 MG TABLET. PO SCH (08:24)
[2021-11-28] MEDS: METHYL SALICYLATE/MENTHOL TOPICAL OINTMENT 57GM TUBE. TP PRN (08:24)
[2021-11-28] MEDS ORDERED: ARIPiprazole 5 MG TABLET PO SCH (09:00)
[2021-11-28] MEDS ORDERED: ALPRAZolam 0.25 MG TABLET PO PRN (13:15)
[2021-11-28 15:07] VITALS: BP 177/84
[2021-11-28] MEDS: RIVAROXABAN 15 MG TABLET. PO SCH (17:42)
[2021-11-28] MEDS: LURASIDONE 40 MG TABLET. PO SCH (17:43)
[2021-11-28] MEDS: CETIRIZINE HCL 10 MG TABLET PO SCH ×2 (18:30→20:19)
[2021-11-28] MEDS: traZODone 50 MG TABLET. PO PRN (20:19)
--- NOTE | 2021-11-28 21:11 | PN ---
DATE: 11/28/2021 SUBJECTIVE: The patient was seen today, met with the staff, chart reviewed. Staff reports some improvement yesterday. She slept better and also appears to be hallucinating at times and told the staff, she saw her . The patient continues to exhibit significant cognitive deficits. OBSERVATION: VITAL SIGNS: Stable. Her appetite and sleep have improved. The patient is steady with her gait. No falls. LABORATORY DATA: The patient's lab reviewed. CURRENT MEDICATIONS: Include Abilify 5 mg daily, Latuda 60 mg in the evening, Xanax 0.25 mg twice a day, trazodone 50 mg at night p.r.n., Celexa 20 mg daily and olanzapine 2.5 mg q. 2 hours p.r.n. ASSESSMENT: 1. Major neurocognitive disorder with psychotic symptoms. 2. Generalized anxiety disorder. 3. Mood disorder, unspecified. PLAN: Continue with the current treatment plan. The patient will be started on the Latuda 60 mg in the evening and also requesting for the lab including LFT and GGT. LENGTH OF STAY: [address]: Shayne TID: [id number]
--- NOTE | 2021-11-28 21:48 | PN ---
DATE: 11/27/2021 SUBJECTIVE: The patient denies any new medical or neurological complaints. OBJECTIVE: GENERAL: Well-developed, well-nourished female in no acute distress. VITAL SIGNS: Blood pressure 160/74, respiratory rate 16, pulse is 63, temperature 97.1, oxygen saturation is 96% on room air. HEENT: Normocephalic, atraumatic; otherwise, unremarkable. NECK: Supple, negative for carotid bruit, lymphadenopathy or thyromegaly. LUNGS: Clear to A and P. CARDIOVASCULAR: Regular rhythm. Normal S1, S2. There is no murmur . ABDOMEN: Soft. Bowel sounds positive. EXTREMITIES: Negative for cyanosis, clubbing or pedal edema. NEUROLOGIC: Mental status: The patient is alert and oriented x 2. The speech is fluent. There is no language dysfunction. The patient recalls 2/3 immediately and 1/3 after 1 and 3 minutes. Judgment and abstracting thinking are normal. The patient denies hallucination or delusion. Cranial nerves are intact. No focal motor or sensory deficits. Deep tendon reflexes were symmetric and hypoactive with absent Achilles responses. Gait and coordination are normal. LABORATORY DATA: Lab was normal. IMPRESSION: 1. Persistent atrial fibrillations, status post mitral valve replacement. 2. Dementia, probably Alzheimer type of moderate severity. 3. Multiple medical problems include hyperlipidemia, hypothyroidism and anemia. 4. Multiple psychiatric problems include anxiety disorders and depressions and intermittent psychosis. 5. Questionable of urinary tract infections. RECOMMENDATIONS: Continue with current medical and psychiatric care. The patient is neurologically stable. YUE DR: Iman TID: [id number]
[2021-11-29] MEDS: LEVOTHYROXINE 25 MCG TABLET. PO SCH (05:37)
[2021-11-29 06:04] VITALS: BP 159/70
[2021-11-29 09:09] VITALS: BP 175/99
--- NOTE | 2021-11-29 10:43 | RAD ---
EXAM: AP View of the chest DATE: 11/29/2021 9:48 AM INDICATION: Reason: lung congestion / Spl. Instructions: / History: COMPARISON: No Prior FINDINGS/ IMPRESSION: The heart is borderline enlarged. Aortic calcifications are seen. Patchy opacities left lung base likely atelectasis or evolving consolidation. No pleural effusion or pneumothorax. Electronically signed by: Bayron Albright MD (11/29/2021 10:40 AM) CATIA
[2021-11-29 10:47] LABS: INFLUENZA A PATIENT NEGATIVE (NEGATIVE); INFLUENZA B PATIENT NEGATIVE (NEGATIVE)
[2021-11-29 11:40] LABS: BASO % 0 % (0-3); EOS % 0 % (0-3); HEMATOCRIT 28.7 % (36.0-47.0); HEMOGLOBIN 9.5 g/dL (12.0-15.5); LYMPH # 0.2 x10^3/uL (1.0-4.8); LYMPH % 5 % (24-48); MEAN CORPUSCULAR HEMOGLOBIN 32 pg (25-35); MEAN CORPUSCULAR HGB CONC 33 g/dL (31-37); MEAN CORPUSCULAR VOLUME 96 fL (79-100); MONO # 0.4 x10^3/uL (0.0-1.1); MONO % 8 % (0-9); NEUT # 4.5 x10^3uL (1.8-7.7); NEUT % 87 % (31-73); PLATELET COUNT 172 x10^3/uL (140-400); RED BLOOD COUNT 2.98 x10^6/uL (3.50-5.40); RED CELL DISTRIBUTION WIDTH 15.6 % (11.5-14.5); WHITE BLOOD COUNT 5.2 x10^3/uL (4.0-11.0)
[2021-11-29] MEDS: ACETAMINOPHEN 325 MG TABLET PO PRN ×2 (11:50→17:39)
[2021-11-29 11:53] LABS: ALBUMIN 3.3 g/dL (3.4-5.0); ALBUMIN/GLOBULIN RATIO 1.4 (1.0-1.7); CALCIUM 7.8 mg/dL (8.5-10.1); CREATININE 0.6 mg/dL (0.6-1.0); GFR 96.2; POTASSIUM 3.4 mmol/L (3.5-5.1); TOTAL BILIRUBIN 0.5 mg/dL (0.2-1.0); TOTAL PROTEIN 5.7 g/dL (6.4-8.2)
[2021-11-29] MEDS: CITALOPRAM 20 MG TABLET. PO SCH (11:57)
[2021-11-29] MEDS: MULTIVITAMIN with MINERAL TABLET. PO SCH (11:57)
[2021-11-29] MEDS: CETIRIZINE HCL 10 MG TABLET PO SCH (11:57)
[2021-11-29 14:30] VITALS: BP 177/60
[2021-11-29] MEDS: RIVAROXABAN 15 MG TABLET. PO SCH (17:34)
[2021-11-29] MEDS: LURASIDONE 40 MG TABLET. PO SCH (17:35)
[2021-11-29] MEDS ORDERED: CETI10TA16 PO (19:29)
[2021-11-29] MEDS ORDERED: METH114C3 TP (19:31)
[2021-11-29] MEDS ORDERED: ACET325T21 PO (19:32)
[2021-11-29] MEDS ORDERED: MAGN400O7 PO (19:33)
[2021-11-29] MEDS ORDERED: MAG30ORA2 PO (19:33)
[2021-11-29] MEDS ORDERED: MULT-638 PO ×2 (19:34→19:35)
--- NOTE | 2021-11-29 23:14 | PN ---
DATE: 11/29/2021 SUBJECTIVE: The patient was seen today, met with the staff, chart reviewed. The patient is currently on isolation because she has been having cough with the expectation, spitting out large amount of sputum. The patient was seen by Dr. Alas and he ordered a PCR test for COVID, also chest x-ray and throat culture. Staff reports that the patient has refused to eat today. She is tired, withdrawn, coughing, feeling weak, staying in bed all. OBSERVATION: VITAL SIGNS: Temperature, patient is not running fever since this morning, blood pressure 159/70, pulse 91, respirations 20, O2 sat 94%. GENERAL: Slept about 7 hours last night. The patient's appetite decreased. CURRENT MEDICATIONS: Abilify 5 mg daily, Latuda 60 mg in the evening, Xanax 0.25 mg twice a day, trazodone 50 mg at night p.r.n., Celexa 20 mg daily and olanzapine 2.5 mg q. 2 hours p.r.n. ASSESSMENT: Major neurocognitive disorder with psychotic symptoms, generalized anxiety disorder and mood disorder, unspecified. PLAN: Continue with the current treatment plan. The patient will be followed up by Dr. Alas, probably we will consider transferring to the medical unit for observation. The patient's Latuda to be decreased to 40 mg in the evening. LENGTH OF STAY: Seven days. YO VARGAS: Shayne TID: [id number]
--- NOTE | 2021-12-03 20:03 | DS ---
DATE OF DISCHARGE: 11/30/2021 FINAL DIAGNOSES: AXIS I: 1. Major neurocognitive disorder, most likely Alzheimer's versus vascular with depression, delusion and behavior problems. 2. Generalized anxiety disorder. AXIS II: None. AXIS III: History of atrial fibrillation, recent mitral valve replacement, hypothyroidism. The patient also had a thyroidectomy in the past, history of migraine headaches, IBS. The patient also developed a fever of 101.1 and also coughing. REASON FOR ADMISSION: This 81-year-old single female was admitted to [facility] for stabilization because of having psychiatric problems. She was brought here from home and she was staying at [facility] for a period of time. The patient tried to elope, planning to call the police, sundowning and also being delusional and paranoid and not sleeping well. HISTORY OF PRESENT ILLNESS: The patient, at the time of admission, was very delusional, paranoid, and she thought she is in danger, and was afraid she was going to and also she was afraid somebody is going to set fire and also talked about people coming for her body parts. HOSPITAL COURSE: The patient was under observation. The patient's behavior has gotten worse, has become very delusional, paranoid, disorganized thinking and also confusion, significant cognitive deficits. The patient's lab reviewed. The patient's white cell count was 3.8 and RBC was 3.05. The patient's calcium was 8.4. GGT 78, ALT 47, alkaline phosphatase 119, glucose 155, BUN 24. The patient continued on her home medications. The patient's behavior continued to worsen. The patient was started on Abilify 5 mg daily and increased to 10 mg with slight improvement, but behavior continued to worsen, become more delusional and paranoid and also severe confusion. Patient's Abilify was increased to 10 mg daily and also continued on her Celexa 20 mg daily and Xanax 0.25 mg twice a day and trazodone 50 mg at night p.r.n., also olanzapine 2.5 mg q. 2 hours p.r.n. The patient continued to decline and she was increasingly more confused, disorganized thinking, having visual and auditory hallucinations. The patient was started on Latuda 60 mg daily and her Abilify decreased to 5 mg daily and eventually discontinued. The patient then developed fever and also having cough and Dr. Alas decided to move her to [address] [place] [address] for further observation. Initially, COVID test was negative and also test for influenza was also negative. AFTERCARE PLAN: The patient was transferred to [address] [place] [address] for further observation and treatment and also advised to discontinue all her medications because family wanted her to be comfort care and did not want any aggressive treatment. QUE DR: Shayne TID: [id number]
== END 2021-11-29 19:45 | disposition short-term general hospital (02) | DRG 57 ==
LOC: GEROPSY 08:51
PROVIDERS: ADMIT Psychiatry & Neurology Psychiatry; ATTEND Psychiatry & Neurology Psychiatry
DX: G30.9 Alzheimer's disease, unspecified (principal); F02.81 Dementia in other diseases classified elsewhere, unspecified severity, with behavioral disturbance; I48.19 Other persistent atrial fibrillation; R45.851 Suicidal ideations; I10 Essential (primary) hypertension; F41.1 Generalized anxiety disorder; F32.A Depression, unspecified; E89.0 Postprocedural hypothyroidism; E78.5 Hyperlipidemia, unspecified; D64.9 Anemia, unspecified; Z20.822 Contact with and (suspected) exposure to COVID-19; I08.1 Rheumatic disorders of both mitral and tricuspid valves; K58.9 Irritable bowel syndrome, unspecified; G43.909 Migraine, unspecified, not intractable, without status migrainosus; Z85.828 Personal history of other malignant neoplasm of skin; Z95.2 Presence of prosthetic heart valve; Z86.73 Personal history of transient ischemic attack (TIA), and cerebral infarction without residual deficits; Z79.899 Other long term (current) drug therapy; Z79.01 Long term (current) use of anticoagulants; Z78.9 Other specified health status; Z85.528 Personal history of other malignant neoplasm of kidney
CPT/HCPCS: 36415; 71045; 80053; 80061; 81001; 82140; 82306; 82607; 82977; 83036; 83540; 83550; 83605; 83735; 84145; 84436; 84443; 84480; 85025; 85379; 86592; 87070; 87086; 87804; 87880; U0003; 97530

== ENCOUNTER 2021-11-29 18:43 | Inpatient (IN) | payer MEDICARE ==
[~2021-11-29] VITALS: Ht 170.2 cm; Wt 46.1 kg
[~2021-11-29 18:43] MED LIST: ALPR0.254 PO; ALPR0.5T6 PO; FLEET GLYCERIN; LEVO25TA4 PO; MENT118G TP; RIVA15TA PO; WOMEN MULTIVITAMIN PO; citalopram PO
[2021-11-29] MEDS ORDERED: CETI10TA16 PO (19:29)
[2021-11-29] MEDS ORDERED: METH114C3 TP (19:31)
[2021-11-29] MEDS ORDERED: ACET325T21 PO (19:32)
[2021-11-29] MEDS ORDERED: MAG30ORA2 PO (19:33)
[2021-11-29] MEDS ORDERED: MAGN400O7 PO (19:33)
[2021-11-29] MEDS ORDERED: MULT-638 PO ×2 (19:34→19:35)
[2021-11-29 19:49] VITALS: BP 126/70
[2021-11-29] MEDS ORDERED: MORPHINE SULFATE 2 MG/ML DISP.SYRIN. IV PRN (20:30)
[2021-11-29] MEDS ORDERED: ACETAMINOPHEN 325 MG TABLET PO PRN (20:30)
[2021-11-29] MEDS ORDERED: ACETAMINOPHEN 650 MG SUPP.RECT. PR PRN (20:30)
--- NOTE | 2021-11-29 20:39 | NUR ---
Nursing note: Pt admitted to Dr. lAas, inpatient comfort care. Written orders per dayshift received. Pt oriented to room, vitals obtained, resting comfortably in bed. Pt reports no pain at this time. Belongings cataloged and left with patient.
[2021-11-29 23:00] VITALS: BP 129/70
--- NOTE | 2021-11-30 00:13 | NUR ---
Nursing note: Spoke to Emil from [facility], earliest appt for admit nurse at 0800 11/30/21. Addendum: 12/01/21 at 0242 by RIZWAN RIVERS RN Approx. 2h later, received call from Emil from [facility], who stated he had been misinformed and earliest appt for admit nurse was 12/02/21 at 0800.
[2021-11-30 05:00] VITALS: BP 123/66
--- NOTE | 2021-11-30 09:15 | NUR ---
THIS RN SPOKE WITH PT DAUGHTER IN LAW ELIE. DAUGHTER IN LAW EXPRESSED THAT ALL SUMMER, PT HAS EXPRESSED THAT SHE IS NOT HAPPY WITH HER QUALITY OF LIFE. PT FAMILY HAS DECIDED THEY WANT HER TO BE COMFORT CARE WITH NO AGGRESSIVE TREATMENT. FAMILY INFORMED THAT HOSPICE IS NOT AVAILABLE UNTIL THURSDAY. FAMILY WAS WANTING TO SEE PT BUT INFORMED THEY ARE UNABLE TO UNTIL PT IS OFFICIALLY ON HOSPICE.
[2021-11-30 11:00] VITALS: BP 126/74
--- NOTE | 2021-11-30 11:51 | HP ---
DATE OF SERVICE: 11/30/2021 ADMIT DATE: 11/29/2021 HISTORY OF PRESENT ILLNESS: The patient is an 81-year-old female patient, who was [facility] for emergent stabilization of acute psychiatric crisis. The patient apparently was brought here from home and she was at [facility] for a period of time according to the staff as she tried to elope, planning to call the police, sundowning and being delusional and claims that she lost her identity. The patient also made statement that she was kidnapped. She did not know about her son or family and also feeling paranoid, not sleeping and fearful. She was swabbed for coronavirus and her coronavirus PCR was not detectable on 11/27/2021. Her influenza A and B and group A Streptococcus were negative. As she apparently developed a fever up to 101.1, we did lab work and her white cell count has risen from 3.8 to 5.2. Her chemistry was mostly unremarkable; however, her procalcitonin was high at 0.23 and her urinalysis showed that there is trace of leukocyte esterase, 5-10 wbc's and few bacteria. I spoke with the nursing staff, and apparently, her family opted for comfort care and did not want any aggressive oral antibiotic treatment and therefore, the patient was transferred to [address] [place] [address] for inpatient hospice care. The patient herself is demented, does not really give any useful information. I did not offer any complaint when I saw her. PAST MEDICAL HISTORY: Significant for atrial fibrillation, recent mitral valve replacement, hypothyroidism. She also has history of migraine headaches, irritable bowel syndrome, cognitive disorder lately and recent acute confusion and disorientation and loss of identity. PAST SURGICAL HISTORY: Significant for MitraClip in 07/2021 and more recently mitral valve replacement as well as thyroidectomy. PAST PSYCHIATRIC HISTORY: Significant for cognitive impairment that has worsened after surgery. SOCIAL HISTORY: She apparently and she had twins, one son was diseased. She does not smoke, drink alcohol or recreational drugs. PHYSICAL EXAMINATION: GENERAL: On arrival to the [address] [place] [address], the patient looked well and was clearly in no apparent respiratory distress. She was somewhat pale, not jaundiced, cyanosed, no lymphadenopathy, no thyromegaly, no jugular venous distention, no limb edema. VITAL SIGNS: Her heart rate was 86, blood pressure was 126/70, temperature was 99, respiratory rate was 18 and oxygen saturation was 95%. HEAD, EYES, EARS, NOSE AND THROAT: Normocephalic, atraumatic. NECK: Supple. HEART: Showed normal first and second heart sounds. No gallop, rub or murmur. CHEST: Showed central trachea, equal bilateral chest expansion, air entry, vesicular breath sounds, very few crepitation mostly in the left side posteriorly. I could not appreciate any rhonchi. ABDOMEN: Scaphoid, soft, nontender. NEUROLOGIC: She was demented, but without any obvious lateralizing sign. LABORATORY DATA: Her lab work done prior to transfer to [address] [place] [address] showed that her white cell count was 5200, hemoglobin 10, hematocrit 29, MCV 96 and platelet count of 172,000. Her serum sodium was 135, potassium 3.4, chloride 99, bicarbonate 28, anion gap of 8, BUN 13, creatinine 0.6. Estimated GFR was 96 mL per minute. Her glucose was 98, calcium was 7.8. Total bilirubin, AST, ALT, alkaline phosphatase were normal. Total protein 5.7, albumin 3.3, globulin was 1.4. Her procalcitonin was 0.23 ng/mL. Her chest x-ray showed that the heart is borderline enlarged, aortic calcifications are seen, patchy opacities left lung base, likely atelectasis or evolving consolidation. No pleural effusion or pneumothorax. Apparently, the family has opted not to treat the patient with antibiotics and opted for comfort and inpatient hospice care. We will consult the [facility] for evaluation and treatment. MERLYN/ULICES/ARLENE DR: Ashlee TID: [id number]
[2021-11-30 16:06] VITALS: BP 152/76
--- NOTE | 2021-11-30 16:23 | NUR ---
PT RESTED MOST OF THE DAY. PT WAS MOVED TO ROOM 109 TO BE CLOSER TO THE NURSES STATION. THIS RN WAS TOLD IN REPORT THAT PT IS ABLE TO GET OUT OF BED. PT HAS BEEN ASLEEP MOST OF THE DAY TODAY, NOT EATING OR DRINKING. WILL NOD HEAD AND OPEN EYES TO QUESTIONS. PT DENIES ANY PAIN. Addendum: 11/30/21 at 1741 by ZEV PACE RN PT ATE A SMALL PORTION OF DINNER. PT SAT UP IN BED AND FED HERSELF. PT REQUESTED THE BED HOGAN. PT STATES SHE IS TOO WEAK TO GET OUT OF BED TO USE THE RESTROOM. PT STATES "PLEASE KILL ME, I AM ALREADY HALF ". PT STATES HER FOOD WAS GOOD AND IS GRACIOUS OF STAFF HELP.
--- NOTE | 2021-11-30 19:48 | PN ---
DATE: 11/30/2021 SUBJECTIVE: The patient is an 81-year-old female patient who was transferred yesterday from [address] with the plan to go on inpatient hospice care. We did consult the [facility]; however, the earliest they can evaluate her was on 12/02/2021. However, the nursing staff stated that she is probably too functional to be accepted for inpatient hospice care; however, she continued to have low-grade fever, had had cough and some coarse breath sounds, particularly on the left side of her lungs. PHYSICAL EXAMINATION: GENERAL: When I examined her, she was pale, not jaundiced, cyanosed. No lymphadenopathy, no thyromegaly, no jugular venous distention. No limb edema. VITAL SIGNS: Her heart rate was 82, blood pressure was 123/65, temperature was 100, respiratory rate was 16 and oxygen saturation was 94%. HEAD, EYES, EARS, NOSE, AND THROAT: Normocephalic, atraumatic. NECK: Supple. HEART: Showed normal first and second heart sounds. No gallop or murmur. CHEST: Clear to auscultation. No crepitation or rhonchi. Chest shows central trachea, equal bilateral expansion, air entry, vesicular breath sounds with crepitation mostly in the left side posteriorly. I could not appreciate any rhonchi or wheezing. ABDOMEN: Slightly distended, soft, nontender. NEUROLOGIC: She is demented without any obvious lateralizing sign. ASSESSMENT AND PLAN: In summary, this is an 81-year-old female patient who was transferred from [facility] with aspiration pneumonia. She is here for comfort care. Family did not want any aggressive treatment or even antibiotic treatment, and would like to consider inpatient hospice care. The patient has multiple medical and psychiatric problems includin. Major neurocognitive disorder with psychotic symptoms. 2. Generalized anxiety disorder and mood disorder. PLAN: We will continue with all her psychotropic and other medications. She probably should be considered for hospice care in a long term facility. She does not certainly qualifies for inpatient hospice care. SAMANTA DR: Ashlee TID: [id number]
[2021-11-30 19:51] VITALS: BP 159/79
--- NOTE | 2021-12-01 02:42 | NUR ---
Nursing note: COVID PCR positive, patient remains in isolation. Pt rested through much of shift, minimally interactive; at 0235, pt bed alarm set off. Pt found in bed, sitting up and requesting water and to toilet. Pt ambulated to toilet SBA. Gown changed and pt given brief.
[2021-12-01 06:10] VITALS: BP 172/69
[2021-12-01] MEDS ORDERED: ACETAMINOPHEN 325 MG TABLET PO PRN (09:00)
[2021-12-01] MEDS ORDERED: FLEET GLYCERIN SCH (09:00)
[2021-12-01] MEDS ORDERED: MAGNESIUM HYDROXIDE 2,400 MG/30 ML ORAL.SUSP. PO PRN (09:00)
[2021-12-01] MEDS ORDERED: CITALOPRAM 10 MG PO SCH (09:00)
[2021-12-01] MEDS: CETIRIZINE HCL 10 MG TABLET PO SCH ×2 (09:00→09:28)
[2021-12-01] MEDS ORDERED: MAG HYDROX/AL HYDROX/SIMETH 30 ML ORAL.SUSP PO PRN (09:00)
[2021-12-01] MEDS ORDERED: NON FORMULARY ITEM (Menthol (Biofreeze) 1 APP) TP PRN (09:00)
[2021-12-01] MEDS: MULTIVITAMIN with MINERAL TABLET. PO SCH ×2 (09:00→09:28)
[2021-12-01] MEDS ORDERED: METHYL SALICYLATE/MENTHOL TOPICAL OINTMENT 57GM TUBE. TP PRN (09:30)
--- NOTE | 2021-12-01 09:34 | NUR ---
PT AWAKE THIS MORNING AND REQUESTING A SHOWER. PT HUNGRY FOR BREAKFAST BUT STATED THE FOOD WAS TOO SALTY. PT CRYING BECAUSE SHE MISSES HER DOG. PT EDUCATED TO STAY IN BED BUT CONTINUES TO GET OUT OF BED AND LOOK IN THE MIRROR. PT HEART RATE TACHYCARDIC WHEN PT IS UP. PT GIVEN THERA AND ALLERGY MEDICATION, BUT PT REFUSED TO TAKE THEM BECAUSE "I DON'T LIKE TO LOAD UP WITH PILLS, THEY MESS ME UP". SPOKE WITH PT DAUGHTER IN LAW AGAIN THIS MORNING. DAUGHTER IN LAW STATES THAT PT WAS PUT ON DIFFERENT PSYCH MEDICATIONS UPSTAIRS AND IS WORRIED THAT SHE MIGHT START HAVING DELUSIONS.
[2021-12-01 11:12] VITALS: BP 133/79
[2021-12-01] MEDS ORDERED: CITALOPRAM 20 MG TABLET. PO ONE (13:00)
[2021-12-01] MEDS ORDERED: ARIPiprazole 5 MG TABLET PO ONE (13:00)
[2021-12-01] MEDS ORDERED: LURASIDONE 40 MG TABLET. PO SCH (13:00)
[2021-12-01] MEDS: METOPROLOL TART IMMED RELEASE 25 MG TABLET. PO ONE ×2 (13:15→16:54)
[2021-12-01] MEDS: OLANZapine IM 10 MG VIAL. IM PRN (13:34)
--- NOTE | 2021-12-01 13:51 | NUR ---
PT BECAME AGITATED THIS AFTERNOON. PT PULLED OFF TELEMETRY AND PULLED OUT IV. DR. ADORNO AWARE AND DOWNGRADED PT TO MED/SURG STATUS, SINCE FAMILY WANTS COMFORT/END OF LIFE CARE. DR. ADORNO RESTARTED PSYCH MEDICATIONS FROM [facility]. PRN ZYPREXA IM GIVEN D/T NO IV ACCESS. ORAL PSYCH MEDICATIONS GIVEN THROUGH SYRINGE D/T LACK OF PT COOPERATION. PT STATES "THIS IS ON YOUR CONSCIENCE, I CAN'T BELIEVE YOU WOULD DO THIS, I WANT A RN CARDIOLOGY IN HERE, EVERYONE HERE IS A CROOK, I AM WORRIED ABOUT MY DOG, I AM NOT TAKING ANY MEDICATIONS". PT STRIPPED DOWN TO HER GOWN AND IS WALKING AROUND IN A SHEET. PT REFUSES TO PUT HER NON-SKID SLIPPERS ON. PT CONTINUES TO COME OUT OF ROOM WITH NO MASK, DESPITE BEING EDUCATED ON HER COVID POSITIVE TEST RESULT. PT COUGHED IN STAFF FACES WHEN TOLD SHE HAS COVID. PT TRIED TO GO INTO ANOTHER PT'S ROOM.
[2021-12-01 15:00] VITALS: BP 171/79
[2021-12-01] MEDS: RIVAROXABAN 15 MG TABLET. PO SCH (16:53)
[2021-12-01] MEDS: LURASIDONE 40 MG TABLET. PO SCH (16:55)
--- NOTE | 2021-12-01 17:04 | NUR ---
PT RESTED AFTER ZYPREXA WAS GIVEN. PT GIVEN ONE TIME DOSE OF METOPROLOL AT 1700 ORDERED FROM 1315, AFTER SHE HAD CALMED DOWN. THIS RN WAS ABLE TO GET THE PT TO TAKE HER MEDS BY ASKING THE PT TO TRY SOME POTATO SALAD WITH THE MEDICATIONS CRUSHED IN IT.
[2021-12-01 20:13] VITALS: BP 149/76
[2021-12-01] MEDS: ALPRAZolam 0.25 MG TABLET PO PRN (20:25)
[2021-12-01] MEDS: METOPROLOL TART IMMED RELEASE 25 MG TABLET. PO SCH (20:26)
--- NOTE | 2021-12-01 21:00 | PN ---
DATE: 12/01/2021 SUBJECTIVE: The patient is sitting up in bed, in no apparent distress. She was more awake this morning, requesting a shower. She is also hungry for breakfast, but stated the food was too salty. She is also very emotional, crying because she misses her dog. She refused to take her medication this morning stating that ____ her up; however, she denied any cough or phlegm. Denied any chest pain or shortness of breath. PHYSICAL EXAMINATION: GENERAL: When I examined her this morning, she looked well and was clearly in no apparent respiratory distress. No pallor, jaundice, cyanosis, or thyromegaly. No jugular venous distention. No lower limb edema. VITAL SIGNS: Her heart rate was 74, blood pressure is 133/79, temperature was 98.6, respiratory rate 20, and oxygen saturation was 96% on room air. HEAD, EYES, EARS, NOSE, AND THROAT: Showed normocephalic, atraumatic. NECK: Supple. HEART: Showed normal first and second heart sounds. No gallop, rub or murmur. CHEST: Shows central trachea, equal bilateral chest expansion, air entry. Vesicular breath sounds. No crepitation or rhonchi. ABDOMEN: Distended, soft, nontender. NEUROLOGIC: She is demented without any obvious lateralizing sign. ASSESSMENT: 1. Possible aspiration pneumonia; however, the family do not want any treatment and they were considering comfort and inpatient hospice care. However, patient does not really qualify for inpatient hospice care. 2. Major neurocognitive disorder with psychotic symptoms. 3. Generalized anxiety disorder, mood disorder. PLAN: To continue with all her psychotropic medications. Come tomorrow, we will consult our pillowcase sewer to see if the patient can be discharged to a prison on hospice care. AMM/EKT/NIS DR: Ashlee TID: [id number]
[2021-12-02 05:32] VITALS: BP 157/73
[2021-12-02] MEDS ORDERED: LEVOTHYROXINE 25 MCG TABLET. PO SCH (07:30)
[2021-12-02] MEDS: MULTIVITAMIN with MINERAL TABLET. PO SCH (08:03)
[2021-12-02] MEDS: ALPRAZolam 0.25 MG TABLET PO PRN ×3 (08:03→20:05)
[2021-12-02] MEDS: ARIPiprazole 5 MG TABLET PO SCH (08:03)
[2021-12-02] MEDS: CETIRIZINE HCL 10 MG TABLET PO SCH (08:03)
[2021-12-02] MEDS: METOPROLOL TART IMMED RELEASE 25 MG TABLET. PO SCH ×3 (08:03→20:08)
[2021-12-02] MEDS: CITALOPRAM 20 MG TABLET. PO SCH (08:04)
[2021-12-02] MEDS: LURASIDONE 40 MG TABLET. PO SCH (08:05)
[2021-12-02] MEDS: OLANZapine IM 10 MG VIAL. IM PRN ×2 (15:10→20:05)
[2021-12-02 16:00] VITALS: BP 126/67
[2021-12-02] MEDS: RIVAROXABAN 15 MG TABLET. PO SCH (17:09)
[2021-12-02 20:08] VITALS: BP 102/63
[2021-12-02 23:00] VITALS: BP 128/70
--- NOTE | 2021-12-02 23:58 | PN ---
DATE: 12/02/2021 SUBJECTIVE: The patient is sitting at the edge of the bed comfortably, in no apparent distress. She continued to be extremely confused, agitated, tends to get out of the room and disrobe. PHYSICAL EXAMINATION: GENERAL: When I examined her, she was somewhat pale, but not jaundiced or cyanosed. No lymphadenopathy, no thyromegaly, no jugular venous distention, no limb edema. VITAL SIGNS: Her heart rate was 73, blood pressure 157/73, temperature was 98.2, respiratory rate 22, and oxygen saturation was 96% on room air. HEAD, EYES, EARS, NOSE, AND THROAT: Normocephalic, atraumatic. NECK: Supple. HEART: Showed normal first and second heart sounds. No gallop, rub or murmur. CHEST: Clear to auscultation. No crepitation or rhonchi. ABDOMEN: Distended, soft, nontender. NEUROLOGIC: She was demented, but without any obvious lateralizing sign. ASSESSMENT AND PLAN: 1. Aspiration pneumonia; however, the family did not want any treatment. They are considering comfort and inpatient hospice care; however, the patient does not really qualify for inpatient hospice care. She was evaluated by [facility] and they will make final determination. 2. Major neurocognitive disorder with psychotic symptoms. 3. Generalized anxiety disorder and other medical problems include: A. Atrial fibrillation with recent mitral valve replacement. B. Hypothyroidism. C. Migraine headaches. D. Irritable bowel syndrome. MERLYN/AMARI/ANNA DR: Ashlee TID: [id number]
[2021-12-03 05:00] VITALS: BP 176/61
[2021-12-03] MEDS: LEVOTHYROXINE 25 MCG TABLET. PO SCH (05:57)
[2021-12-03 06:36] LABS: HEMATOCRIT 29.2 % (36.0-47.0); HEMOGLOBIN 9.7 g/dL (12.0-15.5); RED BLOOD COUNT 3.09 x10^6/uL (3.50-5.40); RED CELL DISTRIBUTION WIDTH 15.6 % (11.5-14.5); WHITE BLOOD COUNT 2.7 x10^3/uL (4.0-11.0)
[2021-12-03 06:57] LABS: ALBUMIN/GLOBULIN RATIO 1.3 (1.0-1.7); CALCIUM 7.8 mg/dL (8.5-10.1); CREATININE 0.9 mg/dL (0.6-1.0); GFR 60.2; POTASSIUM 3.6 mmol/L (3.5-5.1); TOTAL BILIRUBIN 0.4 mg/dL (0.2-1.0); TOTAL PROTEIN 5.4 g/dL (6.4-8.2)
[2021-12-03] MEDS: MULTIVITAMIN with MINERAL TABLET. PO SCH (08:06)
[2021-12-03] MEDS: ARIPiprazole 5 MG TABLET PO SCH (08:07)
[2021-12-03] MEDS: CITALOPRAM 20 MG TABLET. PO SCH (08:07)
[2021-12-03] MEDS: CETIRIZINE HCL 10 MG TABLET PO SCH (08:07)
[2021-12-03] MEDS: LURASIDONE 40 MG TABLET. PO SCH (08:07)
[2021-12-03] MEDS: METOPROLOL TART IMMED RELEASE 25 MG TABLET. PO SCH ×2 (08:07→21:06)
[2021-12-03 15:25] VITALS: BP 105/58
[2021-12-03] MEDS: RIVAROXABAN 15 MG TABLET. PO SCH (16:55)
--- NOTE | 2021-12-03 16:59 | NUR ---
PT RESTED TODAY. PT TOOK MEDICATIONS WHOLE. PT WAS CALM AND COOPERATIVE FOR STAFF TODAY.
[2021-12-03 19:36] VITALS: BP 130/62
--- NOTE | 2021-12-03 20:48 | PN ---
DATE: 12/03/2021 SUBJECTIVE: The patient is sitting slightly propped up in bed, in no apparent distress. She continued to be extremely confused, emotional at times; however, she seemed to be much less agitated than yesterday according to nursing staff. PHYSICAL EXAMINATION: GENERAL: When I examined her, she was pale, cachectic, but not jaundiced or cyanosed, no lymphadenopathy, no thyromegaly, no jugular venous distention, no lower limb edema. VITAL SIGNS: Her heart rate was 85, blood pressure was 176/61, temperature was 98.3, respiratory rate was 16 and oxygen saturation was 95% on room air. The rest of clinical exam is stable. LABORATORY DATA: This morning shows a white cell count of 2700, hemoglobin 10, hematocrit 30, MCV 95 and platelet count of 189,000. Her serum sodium was 136, potassium 3.6, chloride 99, bicarbonate 30, anion gap of 7, BUN 18, creatinine 0.9. Estimated GFR was 60 mL per minute. Her glucose was 84, calcium was 7.8. Total bilirubin, AST, ALT, alkaline phosphatase were normal. Total protein was 5.4, albumin 3. Her coronavirus PCR was positive. ASSESSMENT: 1. Aspiration pneumonia; however, the family did not want any treatment. 2. Major neurocognitive disorder with psychotic symptoms. 3. Generalized anxiety disorder. 4. Other medical problems include: A. Atrial fibrillation with recent mitral valve replacement. B. Hypothyroidism. C. Migraine headache. D. Irritable bowel syndrome. 5. She has also COVID-19 infection with mild leukopenia. VALENTINA DR: Ashlee TID: [id number]
[2021-12-04 06:03] VITALS: BP 129/72
[2021-12-04] MEDS: LEVOTHYROXINE 25 MCG TABLET. PO SCH (06:07)
[2021-12-04] MEDS: CITALOPRAM 20 MG TABLET. PO SCH (08:10)
[2021-12-04] MEDS: ARIPiprazole 5 MG TABLET PO SCH (08:11)
[2021-12-04] MEDS: CETIRIZINE HCL 10 MG TABLET PO SCH (08:11)
[2021-12-04] MEDS: MULTIVITAMIN with MINERAL TABLET. PO SCH (08:11)
[2021-12-04] MEDS: METOPROLOL TART IMMED RELEASE 25 MG TABLET. PO SCH ×2 (08:11→20:05)
[2021-12-04] MEDS: LURASIDONE 40 MG TABLET. PO SCH (08:12)
--- NOTE | 2021-12-04 08:21 | PN ---
DATE: 12/04/2021 ATTENDING PHYSICIAN: Dr. Alas. SUBJECTIVE: She is pleasantly confused. She is eating breakfast independently. She is not agitated. OBJECTIVE FINDINGS: VITAL SIGNS: Blood pressure this morning is 129/72 mmHg. Her oxygen saturation 95% on room air, temperature 97.7 degrees Fahrenheit, pulse is 61 and regular. HEENT: Head is without trauma. Pupils are reactive. Sclerae nonicteric. Oropharynx is clear. NECK: Supple. LUNGS: Shallow respirations. CARDIOVASCULAR: Regular heart tones. No gallops. ABDOMEN: Soft. EXTREMITIES: Without edema. NEUROLOGIC FINDINGS: Profoundly confused. ASSESSMENT: 1. An 81-year-old female from the senior behavioral unit with aspiration pneumonia. 2. Major neurocognitive disorder with psychotic features. 3. Generalized anxiety. 4. Paroxysmal atrial fibrillation. 5. Hypothyroidism. 6. Irritable bowel syndrome. 7. Incidental finding of COVID infection without too many symptoms. PLAN: 1. DNR per advanced directive. 2. I am not sure whether she is accepted as a hospice patient. I shall ascertain this. In any event, she is not actively dying; quite stable. We will need to find placement at some time. SABRINA DR: Roxi TID: [id number]
[2021-12-04 11:40] VITALS: BP 119/69
--- NOTE | 2021-12-04 14:24 | NUR ---
PT TOOK MEDICATIONS WHOLE TODAY AND WAS CALM AND COOPERATIVE. PT RESTED IN BED MOST OF THE DAY. PT INDEPENDENT TO GET UP TO THE BATHROOM. THIS RN SPOKE WITH PT DAUGHTER IN LAW TODAY REGARDING PLACEMENT.
[2021-12-04] MEDS: RIVAROXABAN 15 MG TABLET. PO SCH (16:58)
[2021-12-04 23:00] VITALS: BP 139/71
--- NOTE | 2021-12-05 01:12 | NUR ---
NURSING NOTE PT WAS IN BED UPON ASSESSMENT, A&O TO SELF ONLY WITH SOME CONFUSION TONIGHT. PT IS CALM AND COOPERATIVE THUS FAR. PT WAS CURLED UP AT THE FOOT OF THE BED, THIS RN HELPED PATIENT REPOSITION AND PT REQUEST FOR THE LIGHTS TO BE TURNED OUT. BED ALARM TURNED ON FOR PT SAFETY, CALL LIGHT WITHIN REACH. NO BEHAVIORS NOTED. PATITO LU.
[2021-12-05 05:00] VITALS: BP 152/76
[2021-12-05] MEDS: LEVOTHYROXINE 25 MCG TABLET. PO SCH (05:40)
--- NOTE | 2021-12-05 06:36 | NUR ---
NURSING NOTE A MAN NAMED "ONEAL" CALLED AND ASKED ABOUT THIS PATIENT, THIS RN ASKED FOR PASSCODE, ONEAL UNABLE TO PROVIDE PASSCODE. THIS RN INFORMED HIM THAT HE IS NOT ON HER CONTACT LIST AND WITH NO PASSCODE THIS RN IS UNABLE TO RELEASE INFORMATION AND TO PLEASE CONTACT HER CARETAKERS IF HE WOULD LIKE TO GET ACCESS TO HER INFORMATION. ONEAL STATED PLEASE DO NOT TELL THE OTHERS HE CALLED, THEY DO NOT LIKE HIM TO SEE HER AND PRECEDED TO ASK IF VISITATIONS WERE PERMITTED. THIS RN STATED NO, VISITS ARE NOT PERMITTED AT THIS FACILITY. TABITHA CAPUTO.
[2021-12-05] MEDS: LURASIDONE 40 MG TABLET. PO SCH (08:00)
[2021-12-05] MEDS: MULTIVITAMIN with MINERAL TABLET. PO SCH (09:00)
[2021-12-05] MEDS: CETIRIZINE HCL 10 MG TABLET PO SCH (09:00)
[2021-12-05] MEDS: ARIPiprazole 5 MG TABLET PO SCH (09:00)
[2021-12-05] MEDS: METOPROLOL TART IMMED RELEASE 25 MG TABLET. PO SCH ×2 (09:00→21:26)
[2021-12-05] MEDS: CITALOPRAM 20 MG TABLET. PO SCH (09:00)
--- NOTE | 2021-12-05 10:43 | PN ---
DATE: 12/05/2021 ATTENDING PHYSICIAN: Dr. Wynne. SUBJECTIVE: Comfortable, very pleasant. She is not agitated. She has no new complaints. OBJECTIVE FINDINGS: VITAL SIGNS: Blood pressure this morning is 152/76, pulse is 80 and regular. She is afebrile. Oxygen saturation 95% on room air. HEENT: Head is without trauma. Pupils are reactive. Sclerae nonicteric. The oropharynx is clear. NECK: Supple, no bruits. LUNGS: Otherwise clear. CARDIOVASCULAR: Regular heart tones. No gallop. ABDOMEN: Soft. EXTREMITIES: Without edema. NEUROLOGIC FINDINGS: Less confused and agitated today. ASSESSMENT: 1. An 81-year-old female from the senior behavioral unit with questionable aspiration pneumonia. She is breathing well off of oxygen. 2. Major neurocognitive disorder with psychotic features. 3. Generalized anxiety. 4. COVID-19 exposure. 5. Irritable bowel syndrome. 6. Hypothyroidism, on replacement. 7. Incidental finding of COVID infection without symptoms. PLAN: 1. Medications are continued. 2. We are looking for placement. 3. She is a DNR per advanced directives. She is quite stable medically at this point. JANN/ROMEO DR: JANN/avelina TID: [id number]
[2021-12-05 12:07] VITALS: BP 121/73
[2021-12-05 15:35] VITALS: BP 110/73
[2021-12-05] MEDS: RIVAROXABAN 15 MG TABLET. PO SCH (18:42)
[2021-12-05 19:00] VITALS: BP 146/70
--- NOTE | 2021-12-06 02:04 | NUR ---
Alarm on for pt safety. When alarm sounded, this nurse found pt sitting up in bed and about to stand up. She said,"Good morning! I am trying to turn off the tv and say my prayers. I hit the wrong button." Pt was not watching tv tonight. Pt laid back onto the bed. lisa
[2021-12-06 06:02] VITALS: BP 103/50
[2021-12-06] MEDS: LEVOTHYROXINE 25 MCG TABLET. PO SCH (06:30)
[2021-12-06] MEDS: ARIPiprazole 5 MG TABLET PO SCH (07:58)
[2021-12-06] MEDS: CETIRIZINE HCL 10 MG TABLET PO SCH (07:59)
[2021-12-06] MEDS: MULTIVITAMIN with MINERAL TABLET. PO SCH (07:59)
[2021-12-06] MEDS: LURASIDONE 40 MG TABLET. PO SCH (07:59)
[2021-12-06] MEDS: CITALOPRAM 20 MG TABLET. PO SCH (07:59)
[2021-12-06] MEDS: METOPROLOL TART IMMED RELEASE 25 MG TABLET. PO SCH ×2 (09:00→21:30)
--- NOTE | 2021-12-06 14:52 | NUR ---
Nursing note During the beginning of this shift pt opened her door and exitied into the hallway, when this nurse went over to educate her on importance of staying in her room due to COVID + status pt then stated to get increasingly agitated making statements such as " why are you doing this to me" " what gives you the right to do this to me" and I will put a curse on you. This nurse asked pt to elaborate on what she ment by theses statements to which pt replied " honey i don't have to explain this to you , you are a smart girl , you know what you did " and continued to increase in agitation. this nurse administered PRN medication and spoke with pt. Pt was cooperative with PRN medications.
[2021-12-06] MEDS: RIVAROXABAN 15 MG TABLET. PO SCH (16:55)
--- NOTE | 2021-12-06 19:37 | PN ---
DATE: 12/06/2021 ATTENDING PHYSICIAN: Dr. Alas SUBJECTIVE: Comfortable at rest. No new complaints. Pleasantly confused. OBJECTIVE FINDINGS: VITAL SIGNS: Blood pressure this morning is 103/50, pulse 75 and regular. She is afebrile. Oxygen saturation 96% on room air. HEENT: Head is without trauma. Pupils are reactive. Sclerae nonicteric. Oropharynx is clear. NECK: Supple. LUNGS: Clear to auscultation. CARDIOVASCULAR: Regular heart tones. ABDOMEN: Soft. EXTREMITIES: Without edema. NEUROLOGIC: Focally intact. Pleasantly confused. ASSESSMENT: 1. This 81-year-old female has COVID infection. She remains totally asymptomatic. There was questionable pneumonia, but clinically she does not have pneumonia. She is doing quite well off of any supplemental oxygen. 2. Major neurocognitive disorder with psychotic features. 3. Generalized anxiety. 4. Irritable bowel syndrome. 5. Hypothyroidism, on replacement. PLAN: 1. We are keeping her in COVID isolation. 2. Home meds were reviewed. 3. We were trying to get her placed either in a intermediate or back to the [facility]. SAMIR DR: Roxi TID: [id number]
[2021-12-06 19:38] VITALS: BP 175/74
[2021-12-06] MEDS: ALPRAZolam 0.25 MG TABLET PO PRN (21:31)
--- NOTE | 2021-12-07 00:56 | NUR ---
At start of shift, pt was sitting up in bed, alert, and watching television. Denies pain. She is pleasant and cooperative. Oriented only to self. Asked, "Am I going to be burned alive?" Assured pt she is safe and that we are here to help her and that we do not do that in a hospital. Pt resting quietly. wctm
[2021-12-07] MEDS: LEVOTHYROXINE 25 MCG TABLET. PO SCH (05:59)
[2021-12-07 06:27] VITALS: BP 151/70
[2021-12-07] MEDS: LURASIDONE 40 MG TABLET. PO SCH (08:00)
[2021-12-07] MEDS: METOPROLOL TART IMMED RELEASE 25 MG TABLET. PO SCH ×2 (09:00→20:10)
[2021-12-07] MEDS: MULTIVITAMIN with MINERAL TABLET. PO SCH (09:00)
[2021-12-07] MEDS: CITALOPRAM 20 MG TABLET. PO SCH (09:00)
[2021-12-07] MEDS: CETIRIZINE HCL 10 MG TABLET PO SCH (09:00)
[2021-12-07] MEDS: ARIPiprazole 5 MG TABLET PO SCH (09:00)
--- NOTE | 2021-12-07 09:52 | PN ---
DATE: 12/07/2021 ATTENDING PHYSICIAN: Dr. Wynne. SUBJECTIVE: No new complaints. The patient is dressed. She is actually making her own bed. OBJECTIVE FINDINGS: VITAL SIGNS: Blood pressure this morning is 150/70 mmHg, pulse is 67 and regular. She is afebrile. Oxygen saturation 96% on room air. HEENT: Head is without trauma. Pupils are reactive. Sclerae nonicteric. Oropharynx clear. NECK: Supple. LUNGS: Clear. CARDIOVASCULAR: Regular heart tones. ABDOMEN: Soft. EXTREMITIES: Without edema. NEUROLOGIC: Focally intact. Speech is fluent. She has been vaccinated. ASSESSMENT: 1. An 81-year-old female with asymptomatic exposure and positive swab for the coronavirus, most likely the Omicron variant. 2. Fully vaccinated patient. 3. Underlying dementia with behavioral issues from the [facility]. 4. Irritable bowel syndrome. 5. Generalized anxiety. 6. Hypothyroidism, on replacement. PLAN: 1. Home meds continued. 2. COVID precautions. 3. We are working on placement. BLOSSOM DR: Roxi TID: [id number]
[2021-12-07 10:53] VITALS: BP_SYST 128; BP_SYST 95; BP_DIAS 52; BP_DIAS 63
[2021-12-07] MEDS: RIVAROXABAN 15 MG TABLET. PO SCH (16:31)
[2021-12-07] MEDS: ALPRAZolam 0.25 MG TABLET PO PRN (20:09)
[2021-12-07 20:24] VITALS: BP 131/61
[2021-12-08] MEDS: LEVOTHYROXINE 25 MCG TABLET. PO SCH (05:35)
[2021-12-08] MEDS: LURASIDONE 40 MG TABLET. PO SCH (08:31)
[2021-12-08] MEDS: CETIRIZINE HCL 10 MG TABLET PO SCH (08:32)
[2021-12-08] MEDS: ARIPiprazole 5 MG TABLET PO SCH (08:32)
[2021-12-08] MEDS: METOPROLOL TART IMMED RELEASE 25 MG TABLET. PO SCH ×2 (08:32→19:53)
[2021-12-08] MEDS: CITALOPRAM 20 MG TABLET. PO SCH (08:32)
[2021-12-08] MEDS: MULTIVITAMIN with MINERAL TABLET. PO SCH (08:32)
[2021-12-08] MEDS: RIVAROXABAN 15 MG TABLET. PO SCH (08:32)
--- NOTE | 2021-12-08 09:42 | PN ---
DATE: 12/08/2021 ATTENDING PHYSICIANS: Dr. Alas and Dr. Wynne. SUBJECTIVE: No new complaints. OBJECTIVE FINDINGS: VITAL SIGNS: She is afebrile, blood pressure this morning is 131/61, pulse is 70 and regular, oxygen saturation 96% on room air. HEENT: Head is without trauma. Pupils are reactive. Oropharynx is clear. NECK: Supple. LUNGS: Clear. CARDIOVASCULAR: Regular heart tones. ABDOMEN: Soft. EXTREMITIES: Without edema. NEUROLOGIC FINDINGS: Focally intact. Pleasantly confused. Meds were reviewed. She is still on Xarelto for anticoagulation. ASSESSMENT: 1. An 81-year-old female with asymptomatic exposure to coronavirus positive swab, most likely the Omicron variant. 2. Fully vaccinated patient. 3. Underlying dementia from the [facility]. She was admitted with behavioral issues. 4. Irritable bowel syndrome. 5. Generalized anxiety. 6. Hypothyroidism, on replacement. PLAN: 1. Home meds were reviewed. 2. COVID isolation. 3. We were working on placement. CUCO DR: Roxi TID: [id number]
[2021-12-08 11:17] VITALS: BP 107/60
--- NOTE | 2021-12-08 15:42 | NUR ---
Nursing note: Patient compliant with assessment, continues on isolation for COVID. She is A/O to self only. She is compliant with medications taken whole. Patient has been very pleasant this day. She is currently laying in bed watching tv. Will continue to monitor.
[2021-12-08 15:47] VITALS: BP 135/61
[2021-12-08 19:45] VITALS: BP 127/74
[2021-12-09] MEDS: LEVOTHYROXINE 25 MCG TABLET. PO SCH (06:01)
--- NOTE | 2021-12-09 07:58 | PDOC ---
Exam Note: Don Note: This note is a late entry for 12/08/2021 covers elements not covered in my initial note. Subjective: The patient was seen on telehealth rounds in the evening of 12/08/2021 due to COVID-19 exposure on our unit and half the patients have been COVID positive and transferred to the Medical/Surgical Floor. Discussed with Luisana CAPUTO and reviewed the chart. Also discussed the patient with Dr. Lockhart who covered for me for the past 2 weeks. Reviewed current and past records, labs. I have been asked to follow the patient on [facility] due to COVID positive status. Dr. Wynne is the attending registered nurse teacher on [facility]. She is 81-year-old female after she was transferred from [facility] for progressive memory deficits, psychosis, agitation, hallucinations. She has been fairly cooperative on [facility]. We will check her CT head if not done in 6 months. Review of Systems: No CV, , pulmonary, eye, ENT system symptoms on review. Mental Status Exam: The patient is oriented to herself and situation. She knew the year was 2021, knew the President was Adrien and before him was President Eben. Speech coherent, has some latency. Abstraction fair. Computation impaired. Language function intact. Attention span short. Mood and affect somewhat anxious, withdrawn. She states she has one son whose name is Huey and that her [id number] name is Ursula which is accurate. She said Ursula has 2 children as well. She denies any past alcohol abuse. Laboratory Data: Reviewed. Impression: Major neurocognitive disorder, early Alzheimer, vascular with de lusion, depression behavioral disturbance. Anxiety disorder unspecified. Impulse control disorder unspecified. Plan: The patient had been originally referred to [facility] due to behavioral dyscontrol and psychotic symptoms. She does have history of mitral valve repair, atrial fibrillation and suicidal ideation. We have reviewed drug interactions, risk-benefit ratio. We will make further changes as clinically indicated. Assessment: Vital Signs/I&O: Vital Signs Date Time Temp Pulse Resp B/P (MAP) Pulse Ox O2 Delivery O2 Flow Rate FiO2 12/08/21 20:58 Room Air 12/08/21 19:53 55 127/74 12/08/21 19:45 98.4 16 93 I & O 12/08/21 12/08/21 12/09/21 15:00 23:00 07:00 Intake Total 480 ml 120 ml 0 ml Balance 480 ml 120 ml 0 ml Current Medications: Meds: Current Medications Medications (Trade) Dose Ordered Sig/Ted Route PRN Reason Start Time Stop Time Status Last Admin Dose Admin Morphine Sulfate (Morphine 2mg Syringe) 2 mg PRN Q2HR PRN IV PAIN 11/29/21 20:30 Lorazepam (Ativan Inj) 1 mg PRN Q1HR PRN IVP 2ND CHOICE ANXIETY / AGITATION 11/29/21 20:30 Acetaminophen (Tylenol) 650 mg PRN Q4HRS PRN PO 1ST CHOICE PAIN/TEMP>100.3'F 11/29/21 20:30 Acetaminophen (Tylenol Supp) 650 mg PRN Q4HRS PRN NJ 2ND CHOICE PAIN/TEMP > 100.3'F 11/29/21 20:30 Acetaminophen (Tylenol) 650 mg PRN Q6HRS PRN PO MILD PAIN / TEMP > 100.3'F 12/01/21 09:00 12/01/21 09:11 DC Alprazolam (Xanax) 0.25 mg PRN Q6HRS PRN PO 1ST CHOICE ANXIETY / AGITATION 12/01/21 09:00 12/07/21 20:09 Cetirizine HCl (ZyrTEC) 10 mg DAILY PO 12/01/21 09:00 12/08/21 08:32 Levothyroxine Sodium (Synthroid) 25 mcg DAILYAC PO 12/02/21 07:30 12/02/21 12:24 DC 12/02/21 08:05 Al Hydroxide/Mg Hydroxide (Mylanta Plus Xs) 15 ml PRN AFTMEALHC PRN PO DYSPEPSIA 12/01/21 09:00 Magnesium Hydroxide (Milk Of Magnesia) 2,400 mg PRN QHS PRN PO CONSTIPATION 12/01/21 09:00 Multivitamins/ Calcium (Thera-M Plus) 1 tab DAILY PO 12/01/21 09:00 12/08/21 08:32 Rivaroxaban (Xarelto) 15 mg DAILYWSUP PO 12/01/21 17:00 12/08/21 08:32 Non-Formulary Medication (Menthol (Biofreeze)) 1 abraham QID PRN TP PAIN 12/01/21 09:00 12/01/21 09:16 DC Multi-Ingredient Ointment (Analgesic Hardy) 1 abraham PRN QID PRN TP MUSCLE PAIN 12/01/21 09:30 Non-Formulary Medication ([citalopram] ) 10 mg DAILY PO 12/01/21 09:00 12/01/21 09:51 DC Non-Formulary Medication ([fleet glycerin ] ) 1 supp PRN DAILY .ROUTE 12/01/21 09:00 12/01/21 09:51 DC Citalopram Hydrobromide (CeleXA) 20 mg 1X ONCE PO 12/01/21 13:00 12/01/21 13:03 DC 12/01/21 13:06 Citalopram Hydrobromide (CeleXA) 20 mg DAILY PO 12/02/21 09:00 12/08/21 08:32 Aripiprazole (Abilify) 5 mg 1X ONCE PO 12/01/21 13:00 12/01/21 13:03 DC 12/01/21 13:06 Aripiprazole (Abilify) 5 mg DAILY PO 12/02/21 09:00 12/08/21 08:32 Lurasidone HCl (Latuda) 60 mg DAILYWBKFT PO 12/01/21 13:00 12/01/21 13:08 DC Lurasidone HCl (Latuda) 60 mg DAILYWBKFT PO 12/01/21 18:00 12/08/21 08:31 Metoprolol Tartrate (Lopressor) 25 mg 1X ONCE PO 12/01/21 13:15 12/01/21 13:26 DC 12/01/21 16:54 Metoprolol Tartrate (Lopressor) 25 mg BID PO 12/01/21 21:00 12/08/21 08:32 Olanzapine (ZyPREXA IM) 2.5 mg PRN Q4HRS PRN IM anxiety agitation 12/01/21 13:30 12/02/21 20:05 Levothyroxine Sodium (Synthroid) 25 mcg DAILY06 PO 12/03/21 06:00 12/09/21 06:01 I have reviewed the current psychotropics carefully including drug interactions. Risk benefit ratio favors no change other than as noted in my dictated progress note. Diagnosis: Problems: (1) Major neurocognitive disorder (2) Dementia in Alzheimer's disease with delusions (3) Dementia in Alzheimer's disease with depression (4) Dementia of the Alzheimer's type with early onset with behavioral disturbance (5) Dementia, vascular, with delusions (6) Dementia, vascular, with depression (7) Anxiety disorder, unspecified (8) Impulse control disorder, unspecified ISAURO BECKHAM MD Dec 09, 2021 07:58
[2021-12-09 08:25] VITALS: BP 147/73
[2021-12-09] MEDS: LURASIDONE 40 MG TABLET. PO SCH (08:51)
[2021-12-09] MEDS: ARIPiprazole 5 MG TABLET PO SCH (08:51)
[2021-12-09] MEDS: MULTIVITAMIN with MINERAL TABLET. PO SCH (08:51)
[2021-12-09] MEDS: CETIRIZINE HCL 10 MG TABLET PO SCH (08:52)
[2021-12-09] MEDS: CITALOPRAM 20 MG TABLET. PO SCH (08:52)
[2021-12-09] MEDS: METOPROLOL TART IMMED RELEASE 25 MG TABLET. PO SCH ×2 (08:52→20:31)
--- NOTE | 2021-12-09 09:37 | PN ---
DATE: 12/09/2021 ATTENDING PHYSICIAN: Dr. Wynne. SUBJECTIVE: No new complaints. She is asymptomatic. She does not require any oxygen. OBJECTIVE FINDINGS: VITAL SIGNS: Blood pressure this morning is 140/70 mmHg. She is afebrile. Oxygen saturation 97% on room air. HEENT: Head is without trauma. Pupils are reactive. Sclerae nonicteric. Oropharynx is clear. NECK: Supple, no bruits identified. LUNGS: Clear. CARDIOVASCULAR: Regular heart tones. ABDOMEN: Soft. EXTREMITIES: Without edema. NEUROLOGIC: Focally intact. Pleasantly confused. ASSESSMENT: 1. An 81-year-old female with asymptomatic exposure to coronavirus positive swab, most likely Omicron variant. 2. Fully vaccinated patient. 3. Underlying dementia with behavioral issues. 4. Irritable bowel syndrome. 5. Generalized anxiety. 6. Hypothyroidism, on replacement. PLAN: 1. Home meds continued. 2. COVID isolation. 3. We are working on getting her back upstairs in the near future. JANN/ERNESTO DR: Roxi TID: [id number]
[2021-12-09 11:10] VITALS: BP 131/71
[2021-12-09] MEDS: RIVAROXABAN 15 MG TABLET. PO SCH (16:23)
[2021-12-09 19:00] VITALS: BP 122/72
[2021-12-09] MEDS: ALPRAZolam 0.25 MG TABLET PO PRN (20:30)
--- NOTE | 2021-12-09 21:01 | PDOC ---
Exam Note: Don Note: Please also refer to the separate dictated note~for this date of service dictated separately.~Patient seen individually. Discussed the patient with Nursing staff reviewed the chart.~Reviewed interim history and current functioning. Reviewed vital signs,~Labs/ Radiology~and current medications noted below. Continue current treatment with the changes noted in the dictated addendum note Assessment: Vital Signs/I&O: Vital Signs Date Time Temp Pulse Resp B/P (MAP) Pulse Ox O2 Delivery O2 Flow Rate FiO2 12/09/21 20:31 60 122/72 12/09/21 19:00 98.3 16 95 Room Air I & O 12/08/21 12/08/21 12/09/21 15:00 23:00 07:00 Intake Total 480 ml 120 ml 0 ml Balance 480 ml 120 ml 0 ml Current Medications: I have reviewed the current psychotropics carefully including drug interactions. Risk benefit ratio favors no change other than as noted in my dictated progress note. Diagnosis: Problems: (1) Impulse control disorder, unspecified (2) Anxiety disorder, unspecified (3) Dementia, vascular, with depression (4) Dementia, vascular, with delusions (5) Dementia in Alzheimer's disease with depression (6) Dementia in Alzheimer's disease with delusions (7) Dementia of the Alzheimer's type with early onset with behavioral disturbance (8) Major neurocognitive disorder ISAURO BECKHAM MD Dec 09, 2021 21:01
[2021-12-10] MEDS: LEVOTHYROXINE 25 MCG TABLET. PO SCH (05:38)
--- NOTE | 2021-12-10 07:37 | PDOC ---
Exam Note: Don Note: This note is a late entry for 12/09/2021 covers elements not covered in my initial note. Subjective: The patient was reviewed by the nursing staff, reviewed the chart and interim history. Discussed with Maranda CAPUTO. Patient is due to be transferred back to [facility] tomorrow. Overall she has been fairly appropriate with no clear psychotic symptoms but with significant short-term memory deficits. Review of Systems: Per nursing report, no CV, , pulmonary, eye, ENT system symptoms on review. Mental Status Exam: Per nursing assessment, the patient is oriented to herself and at times situation. Speech coherent. Abstraction fair. Computation impaired. Language function intact. Mood and affect slightly anxious and dysphoric. Laboratory Data: Reviewed. Impression: Major neurocognitive disorder, early Alzheimer, vascular with delusion, depression behavioral disturbance. Anxiety disorder unspecified. Impulse control disorder unspecified. Plan: Continue current psychotropics, Latuda 60 mg a day, Abilify 5 mg a day, Celexa 20 mg a day. Patient is on two atypical antipsychotics. She does seem to be stable on this but perhaps may consider reducing the Abilify once she is back on [facility]. Assessment: Vital Signs/I&O: Vital Signs Date Time Temp Pulse Resp B/P (MAP) Pulse Ox O2 Delivery O2 Flow Rate FiO2 12/09/21 20:31 60 122/72 12/09/21 20:00 Room Air 12/09/21 19:00 98.3 16 95 I & O 12/09/21 12/09/21 12/10/21 15:00 23:00 07:00 Intake Total 480 ml 360 ml 200 ml Output Total 2 ml Balance 478 ml 360 ml 200 ml Current Medications: Meds: Current Medications Medications (Trade) Dose Ordered Sig/Ted Route PRN Reason Start Time Stop Time Status Last Admin Dose Admin Morphine Sulfate (Morphine 2mg Syringe) 2 mg PRN Q2HR PRN IV PAIN 11/29/21 20:30 Lorazepam (Ativan Inj) 1 mg PRN Q1HR PRN IVP 2ND CHOICE ANXIETY / AGITATION 11/29/21 20:30 Acetaminophen (Tylenol) 650 mg PRN Q4HRS PRN PO 1ST CHOICE PAIN/TEMP>100.3'F 11/29/21 20:30 Acetaminophen (Tylenol Supp) 650 mg PRN Q4HRS PRN PA 2ND CHOICE PAIN/TEMP > 100.3'F 11/29/21 20:30 Acetaminophen (Tylenol) 650 mg PRN Q6HRS PRN PO MILD PAIN / TEMP > 100.3'F 12/01/21 09:00 12/01/21 09:11 DC Alprazolam (Xanax) 0.25 mg PRN Q6HRS PRN PO 1ST CHOICE ANXIETY / AGITATION 12/01/21 09:00 12/09/21 20:30 Cetirizine HCl (ZyrTEC) 10 mg DAILY PO 12/01/21 09:00 12/09/21 08:52 Levothyroxine Sodium (Synthroid) 25 mcg DAILYAC PO 12/02/21 07:30 12/02/21 12:24 DC 12/02/21 08:05 Al Hydroxide/Mg Hydroxide (Mylanta Plus Xs) 15 ml PRN AFTMEALHC PRN PO DYSPEPSIA 12/01/21 09:00 Magnesium Hydroxide (Milk Of Magnesia) 2,400 mg PRN QHS PRN PO CONSTIPATION 12/01/21 09:00 Multivitamins/ Calcium (Thera-M Plus) 1 tab DAILY PO 12/01/21 09:00 12/09/21 08:51 Rivaroxaban (Xarelto) 15 mg DAILYWSUP PO 12/01/21 17:00 12/09/21 16:23 Non-Formulary Medication (Menthol (Biofreeze)) 1 abraham QID PRN TP PAIN 12/01/21 09:00 12/01/21 09:16 DC Multi-Ingredient Ointment (Analgesic [place]) 1 abraham PRN QID PRN TP MUSCLE PAIN 12/01/21 09:30 Non-Formulary Medication ([citalopram] ) 10 mg DAILY PO 12/01/21 09:00 12/01/21 09:51 DC Non-Formulary Medication ([fleet glycerin ] ) 1 supp PRN DAILY .ROUTE 12/01/21 09:00 12/01/21 09:51 DC Citalopram Hydrobromide (CeleXA) 20 mg 1X ONCE PO 12/01/21 13:00 12/01/21 13:03 DC 12/01/21 13:06 Citalopram Hydrobromide (CeleXA) 20 mg DAILY PO 12/02/21 09:00 12/09/21 08:52 Aripiprazole (Abilify) 5 mg 1X ONCE PO 12/01/21 13:00 12/01/21 13:03 DC 12/01/21 13:06 Aripiprazole (Abilify) 5 mg DAILY PO 12/02/21 09:00 12/09/21 08:51 Lurasidone HCl (Latuda) 60 mg DAILYWBKFT PO 12/01/21 13:00 12/01/21 13:08 DC Lurasidone HCl (Latuda) 60 mg DAILYWBKFT PO 12/01/21 18:00 12/09/21 08:51 Metoprolol Tartrate (Lopressor) 25 mg 1X ONCE PO 12/01/21 13:15 12/01/21 13:26 DC 12/01/21 16:54 Metoprolol Tartrate (Lopressor) 25 mg BID PO 12/01/21 21:00 12/09/21 20:31 Olanzapine (ZyPREXA IM) 2.5 mg PRN Q4HRS PRN IM anxiety agitation 12/01/21 13:30 12/02/21 20:05 Levothyroxine Sodium (Synthroid) 25 mcg DAILY06 PO 12/03/21 06:00 12/10/21 05:38 I have reviewed the current psychotropics carefully including drug interactions. Risk benefit ratio favors no change other than as noted in my dictated progress note. Diagnosis: Problems: (1) Impulse control disorder, unspecified (2) Anxiety disorder, unspecified (3) Dementia, vascular, with depression (4) Dementia, vascular, with delusions (5) Dementia in Alzheimer's disease with depression (6) Dementia in Alzheimer's disease with delusions (7) Dementia of the Alzheimer's type with early onset with behavioral disturbance (8) Major neurocognitive disorder ISAURO BECKHAM MD Dec 10, 2021 07:37
[2021-12-10 08:00] VITALS: BP 110/65
[2021-12-10] MEDS: CITALOPRAM 20 MG TABLET. PO SCH (08:52)
[2021-12-10] MEDS: ARIPiprazole 5 MG TABLET PO SCH (08:52)
[2021-12-10] MEDS: CETIRIZINE HCL 10 MG TABLET PO SCH (08:52)
[2021-12-10] MEDS: MULTIVITAMIN with MINERAL TABLET. PO SCH (08:52)
[2021-12-10] MEDS: LURASIDONE 40 MG TABLET. PO SCH (08:53)
[2021-12-10 08:54] VITALS: BP 110/65
[2021-12-10] MEDS: METOPROLOL TART IMMED RELEASE 25 MG TABLET. PO SCH (08:54)
--- NOTE | 2021-12-10 12:38 | NUR ---
Pt d/c from to [facility] by this nurse via w/c.
[2021-12-10] MEDS ORDERED: ACET650S11 RC (13:55)
[2021-12-10] MEDS ORDERED: LURA60TA PO (13:55)
[2021-12-10] MEDS ORDERED: CITA20TA9 PO (13:55)
[2021-12-10] MEDS ORDERED: METO25TA4 PO (13:55)
[2021-12-10] MEDS ORDERED: ARIP5TAB13 PO (13:55)
--- NOTE | 2021-12-10 14:43 | DS ---
DATE OF DISCHARGE: 12/10/2021 ATTENDING PHYSICIANS: Dr. Alas and Dr. Wynne FINAL DISCHARGE DIAGNOSES: 1. COVID-19 infection. 2. Secondary pneumonia ruled out. 3. Paroxysmal atrial fibrillation. 4. Irritable bowel syndrome. 5. Dementia with confusion and loss of identity. 6. Mitral valve replacement. 7. Previous thyroidectomy. 8. Febrile illness related to coronavirus on admission. HISTORY OF PRESENT ILLNESS: The patient is an 81-year-old female in the [facility]. She developed low-grade fevers and some hypoxemia. PCR was positive for coronavirus on 11/30. She was transferred here for further treatment and evaluation. PHYSICAL EXAMINATION: Please see the dictated note. PERTINENT LABORATORY AND X-RAY STUDIES: Hemoglobin repeated was 9.7 g/dL, white count 2700. This will be followed up later this week. Electrolytes, BUN and creatinine all within normal range. Serology is indeed positive for coronavirus on 11/30 as well as 12/02. COURSE IN THE HOSPITAL: The patient was then admitted. She initially was to be sicker than she really was, but she did not have any further problems. Supplemental oxygen was weaned off. She was up and ambulating in her room and was quite comfortable. I suspect she has the omicron variant. In any event, her home meds were continued and she was doing quite well. She was quarantined for 11 days. At this time, she is ready to go back to the [facility]. She has no other symptoms. No fevers or shortness of breath. Oxygen saturations were quite adequate. On the day of discharge, her vital signs showed that she was afebrile, blood pressure is 110/65 mmHg and room air saturations were 96%. Therefore, she is discharged back to the [facility]. No significant changes on her meds that include the following: She will continue her Tylenol, alprazolam, cetirizine, Synthroid, magnesium hydroxide, menthol, multivitamin, and the Xarelto 15 mg daily. For now, we held her Fleet's Enema. Her prognosis is guarded. She has a DNR order per advanced directives. She was discharged in stable condition with explicit drug and followup care. We will continue to see her up there on the [facility]. JANN/BELLA/NICOLÁS VARGAS: JANN/avelina TID: [id number] CC: Tobin Allison MD
== END 2021-12-10 12:38 | disposition short-term general hospital (02) | DRG 178 ==
LOC: 1 SOUTH 18:43 → UNDOADMIN 18:43 → 1 SOUTH 19:50
PROVIDERS: ADMIT Internal Medicine; ATTEND Internal Medicine
DX: U07.1 COVID-19 (principal); F02.81 Dementia in other diseases classified elsewhere, unspecified severity, with behavioral disturbance; E89.0 Postprocedural hypothyroidism; F01.50 Vascular dementia, unspecified severity, without behavioral disturbance, psychotic disturbance, mood disturbance, and anxiety; F32.A Depression, unspecified; F41.1 Generalized anxiety disorder; F63.9 Impulse disorder, unspecified; G30.9 Alzheimer's disease, unspecified; G43.909 Migraine, unspecified, not intractable, without status migrainosus; I48.0 Paroxysmal atrial fibrillation; K58.9 Irritable bowel syndrome, unspecified; R09.02 Hypoxemia; Z66 Do not resuscitate; Z79.01 Long term (current) use of anticoagulants; Z95.2 Presence of prosthetic heart valve
CPT/HCPCS: 36415; 80053; 85027; J2060; J3490; U0003

== ENCOUNTER 2021-12-10 10:41 | Inpatient (IN) | payer MEDICARE ==
[~2021-12-10] VITALS: Ht 170.2 cm; Wt 46.2 kg
[~2021-12-10 10:41] MED LIST changes: +ACET325T21 PO; +CETI10TA16 PO; +MAG30ORA2 PO; +MAGN400O7 PO; +METH114C3 TP; +MULT-638 PO
[2021-12-10] MEDS ORDERED: MAG HYDROX/AL HYDROX/SIMETH 30 ML ORAL.SUSP PO PRN (13:30)
[2021-12-10] MEDS ORDERED: MAGNESIUM HYDROXIDE 2,400 MG/30 ML ORAL.SUSP. PO PRN (13:30)
[2021-12-10] MEDS ORDERED: ACETAMINOPHEN 325 MG TABLET PO PRN ×2 (13:30→14:00)
[2021-12-10] MEDS ORDERED: METHYL SALICYLATE/MENTHOL TOPICAL OINTMENT 57GM TUBE. TP PRN (13:30)
[2021-12-10] MEDS ORDERED: LURA60TA PO (13:55)
[2021-12-10] MEDS ORDERED: ACET650S11 RC (13:55)
[2021-12-10] MEDS ORDERED: ARIP5TAB13 PO (13:55)
[2021-12-10] MEDS ORDERED: METO25TA4 PO (13:55)
[2021-12-10] MEDS ORDERED: CITA20TA9 PO (13:55)
[2021-12-10] MEDS ORDERED: ACETAMINOPHEN 650 MG SUPP.RECT. RC PRN (14:00)
[2021-12-10 14:08] VITALS: BP 115/61
[2021-12-10] MEDS ORDERED: ALPRAZolam 0.25 MG TABLET PO PRN (14:15)
[2021-12-10 16:18] VITALS: BP 131/71
[2021-12-10 17:09] LABS: BASO % 1 % (0-3); EOS # 0.1 x10^3/uL (0.0-0.7); EOS % 1 % (0-3); HEMATOCRIT 30.5 % (36.0-47.0); HEMOGLOBIN 10.1 g/dL (12.0-15.5); LYMPH # 0.7 x10^3/uL (1.0-4.8); LYMPH % 10 % (24-48); MEAN CORPUSCULAR HEMOGLOBIN 31 pg (25-35); MEAN CORPUSCULAR HGB CONC 33 g/dL (31-37); MEAN CORPUSCULAR VOLUME 94 fL (79-100); MONO # 0.4 x10^3/uL (0.0-1.1); MONO % 6 % (0-9); NEUT # 5.8 x10^3uL (1.8-7.7); NEUT % 82 % (31-73); PLATELET COUNT 299 x10^3/uL (140-400); RED BLOOD COUNT 3.24 x10^6/uL (3.50-5.40); RED CELL DISTRIBUTION WIDTH 15.4 % (11.5-14.5); WHITE BLOOD COUNT 7.1 x10^3/uL (4.0-11.0)
[2021-12-10 17:42] LABS: ALBUMIN 2.9 g/dL (3.4-5.0); CALCIUM 8.2 mg/dL (8.5-10.1); CREATININE 0.9 mg/dL (0.6-1.0); GFR 60.2; MAGNESIUM 2.3 mg/dL (1.8-2.4); POTASSIUM 4.5 mmol/L (3.5-5.1); TOTAL BILIRUBIN 0.3 mg/dL (0.2-1.0); TOTAL PROTEIN 5.9 g/dL (6.4-8.2)
[2021-12-10] MEDS: RIVAROXABAN 15 MG TABLET. PO SCH (17:59)
[2021-12-10] MEDS: METOPROLOL TART IMMED RELEASE 25 MG TABLET. PO SCH (21:00)
--- NOTE | 2021-12-10 21:28 | PDOC ---
Exam Note: Don Note: Please also refer to the separate dictated note~for this date of service dictated separately.~Patient seen individually. Discussed the patient with Nursing staff reviewed the chart.~Reviewed interim history and current functioning. Reviewed vital signs,~Labs/ Radiology~and current medications noted below. Continue current treatment with the changes noted in the dictated addendum note Assessment: Vital Signs/I&O: Vital Signs Date Time Temp Pulse Resp B/P (MAP) Pulse Ox O2 Delivery O2 Flow Rate FiO2 12/10/21 16:18 97.6 63 18 131/71 (91) 96 12/10/21 14:08 Room Air 96.0 Labs: Laboratory Tests Test 12/10/21 16:54 White Blood Count 7.1 x10^3/uL (4.0-11.0) Red Blood Count 3.24 x10^6/uL (3.50-5.40) L Hemoglobin 10.1 g/dL (12.0-15.5) L Hematocrit 30.5 % (36.0-47.0) L Mean Corpuscular Volume 94 fL (79-100) Mean Corpuscular Hemoglobin 31 pg (25-35) Mean Corpuscular Hemoglobin Concent 33 g/dL (31-37) Red Cell Distribution Width 15.4 % (11.5-14.5) H Platelet Count 299 x10^3/uL (140-400) Neutrophils (%) (Auto) 82 % (31-73) H Lymphocytes (%) (Auto) 10 % (24-48) L Monocytes (%) (Auto) 6 % (0-9) Eosinophils (%) (Auto) 1 % (0-3) Basophils (%) (Auto) 1 % (0-3) Neutrophils # (Auto) 5.8 x10^3uL (1.8-7.7) Lymphocytes # (Auto) 0.7 x10^3/uL (1.0-4.8) L Monocytes # (Auto) 0.4 x10^3/uL (0.0-1.1) Eosinophils # (Auto) 0.1 x10^3/uL (0.0-0.7) Basophils # (Auto) 0.0 x10^3/uL (0.0-0.2) D-Dimer (Sofie) 0.94 mg/L (0.00-0.50) H Sodium Level 133 mmol/L (136-145) L Potassium Level 4.5 mmol/L (3.5-5.1) Chloride Level 98 mmol/L (98-107) Carbon Dioxide Level 30 mmol/L (21-32) Anion Gap 5 (6-14) L Blood Urea Nitrogen 23 mg/dL (7-20) H Creatinine 0.9 mg/dL (0.6-1.0) Estimated GFR (Cockcroft-Gault) 60.2 BUN/Creatinine Ratio 26 (6-20) H Glucose Level 132 mg/dL (70-99) H Calcium Level 8.2 mg/dL (8.5-10.1) L Magnesium Level 2.3 mg/dL (1.8-2.4) Total Bilirubin 0.3 mg/dL (0.2-1.0) Aspartate Amino Transferase (AST) 27 U/L (15-37) Alanine Aminotransferase (ALT) 41 U/L (14-59) Alkaline Phosphatase 134 U/L (46-116) H Total Protein 5.9 g/dL (6.4-8.2) L Albumin 2.9 g/dL (3.4-5.0) L Albumin/Globulin Ratio 1.0 (1.0-1.7) Current Medications: Meds: Current Medications Medications (Trade) Dose Ordered Sig/Ted Route PRN Reason Start Time Stop Time Status Last Admin Dose Admin Rivaroxaban (Xarelto) 15 mg 1700 PO 12/10/21 17:00 12/10/21 17:59 I have reviewed the current psychotropics carefully including drug interactions. Risk benefit ratio favors no change other than as noted in my dictated progress note. Diagnosis: Problems: (1) Impulse control disorder, unspecified (2) Anxiety disorder, unspecified (3) Dementia, vascular, with depression (4) Dementia, vascular, with delusions (5) Dementia in Alzheimer's disease with depression (6) Dementia in Alzheimer's disease with delusions (7) Dementia of the Alzheimer's type with early onset with behavioral disturbance (8) Major neurocognitive disorder ISAURO BECKHAM MD Dec 10, 2021 21:28
--- NOTE | 2021-12-10 22:52 | HP ---
DATE OF SERVICE: 12/10/2021 ADMIT DATE: 12/10/2021 PSYCHIATRIC ADMISSION HISTORY/EVALUATION IDENTIFYING DATA: The patient is an 81-year-old female who returns back to [facility] after she was on the medical surgical floor [facility] where she was transferred from [facility] after she turned COVID positive on screening. She was initially admitted by Dr. Sosa to the [facility] for short-term memory deficits, marked psychosis, agitation, attempting to elope from the assisted living at 3:00 in the morning, screaming, believing bizarre thoughts and extremely paranoid. She had failed outpatient psychiatric interventions, was getting increasingly more confused and was referred for inpatient psychiatric stabilization. During that hospitalization, she turned COVID positive, went to the medical surgical floor and now returns back to us to continue psychiatric treatment. CHIEF COMPLAINT: "I don't know what happened to my mind. I was thinking differently." Reviewed current and past records, nursing information and information from Ursula Era, patient's [id number]. HISTORY OF PRESENT ILLNESS: The patient has a history of poorly short-term memory deficits, marked psychotic symptoms, screaming, yelling, walking out of the assisted living at 3:00 in the morning, believes people were trying to kill her or had killed someone in her family. She described herself as having "brain fog." She did have a CT head at [facility] in 07/2021 and then at [facility]. Nothing acute accounted for her symptoms and workup for organicity and medical reasons for her psychosis were not confirmed. She is having sleep and appetite changes. No active suicidal or homicidal ideation. She is extremely afraid, overwhelmed and distraught. PAST PSYCHIATRIC HISTORY: As above. MEDICAL HISTORY: Status post COVID positive screen. Irritable bowel syndrome, hypothyroidism, atrial fibrillation, status post mitral valve replacement. CODE STATUS: DNR. ACCU-CHEKS: Negative. DIET: Regular. AMBULATES: Independently. CURRENT PSYCHOTROPICS: Please refer to the MRAD and she is currently on Latuda 60 mg a day, Abilify 5 mg a day, Celexa 20 mg a day. FAMILY HISTORY: Noncontributory. SOCIAL HISTORY: No alcohol, drug abuse, physical, sexual or elder abuse history is noted. She is not known to be a perpetrator. Reaction to hospitalization, the patient accepting of it. ASSETS: Supportive family. REVIEW OF SYSTEMS: No CV, , pulmonary, eye system symptoms on review. MENTAL STATUS EXAM: The patient was seen individually on telehealth rounds. She is awake, alert, oriented to herself, situation, knew she was at a hospital in [place]. She knew the year, knew the current president was President Adrien, before him was President Eben. She is able to tell me she has 1 son, Huey, and [id number]'s name is Ursula and Ursula and Huey have 2 children and she did have some short-term memory deficits beyond this period. Paranoia seems much improved. No suicidal or homicidal ideation. LABORATORY DATA: Reviewed. IMPRESSION: Major neurocognitive disorder, early probably vascular with delusions. Psychotic disorder, unspecified; rule out major depressive disorder with psychotic features. Rest as above. PLAN: Admit to Geropsychiatry unit at [facility]. I will see the patient daily individually from a psychiatric standpoint, medical followup, Dr. Alas/Dr. Wynne. We will try to simplify her antipsychotic, as she is on 2 atypical antipsychotics Latuda and Abilify. We will continue Celexa for now. We will make further adjustments as clinically indicated. Post-baseline assessment. ESTIMATED LENGTH OF STAY: A 10-12 days. DISPOSITION PLANS: Appropriate placement will be sought once she is psychiatrically stable. IRMA DR: Breann TID: [id number]
[2021-12-11 06:09] VITALS: BP 147/69
[2021-12-11] MEDS: ARIPiprazole 5 MG TABLET PO SCH (08:37)
[2021-12-11] MEDS: CITALOPRAM 20 MG TABLET. PO SCH (08:37)
[2021-12-11] MEDS: CETIRIZINE HCL 10 MG TABLET PO SCH (08:38)
[2021-12-11] MEDS: METOPROLOL TART IMMED RELEASE 25 MG TABLET. PO SCH ×2 (08:38→20:34)
[2021-12-11] MEDS: MULTIVITAMIN with MINERAL TABLET. PO SCH (08:38)
[2021-12-11] MEDS: LEVOTHYROXINE 25 MCG TABLET. PO SCH (08:39)
[2021-12-11] MEDS: LURASIDONE 40 MG TABLET. PO SCH (08:54)
[2021-12-11 13:57] LABS: CHOLESTEROL/HDL RATIO 5.2; THYROID STIM HORMONE (TSH) 2.095 uIU/mL (0.358-3.740)
[2021-12-11 15:20] VITALS: BP 112/61
[2021-12-11] MEDS: RIVAROXABAN 15 MG TABLET. PO SCH (16:57)
--- NOTE | 2021-12-11 20:57 | PDOC ---
Exam Note: Don Note: Please also refer to the separate dictated note~for this date of service dictated separately.~Patient seen individually. Discussed the patient with Nursing staff reviewed the chart.~Reviewed interim history and current functioning. Reviewed vital signs,~Labs/ Radiology~and current medications noted below. Continue current treatment with the changes noted in the dictated addendum note Assessment: Vital Signs/I&O: Vital Signs Date Time Temp Pulse Resp B/P (MAP) Pulse Ox O2 Delivery O2 Flow Rate FiO2 12/11/21 20:34 61 112/61 12/11/21 15:20 97.2 20 97 12/10/21 14:08 Room Air 96.0 I & O 12/10/21 12/10/21 12/11/21 15:00 23:00 07:00 Intake Total 120 ml Balance 120 ml Current Medications: Meds: Current Medications Medications (Trade) Dose Ordered Sig/Ted Route PRN Reason Start Time Stop Time Status Last Admin Dose Admin Acetaminophen (Tylenol) 650 mg PRN Q6HRS PRN PO MILD PAIN / TEMP > 100.3'F 12/10/21 13:30 12/10/21 13:59 DC Multi-Ingredient Ointment (Analgesic [place]) 1 abraham PRN QID PRN TP MUSCLE PAIN 12/10/21 13:30 12/10/21 13:59 DC Al Hydroxide/Mg Hydroxide (Mylanta Plus Xs) 15 ml PRN AFTMEALHC PRN PO DYSPEPSIA 12/10/21 13:30 12/10/21 13:59 DC Magnesium Hydroxide (Milk Of Magnesia) 2,400 mg PRN QHS PRN PO CONSTIPATION 12/10/21 13:30 12/10/21 13:59 DC Cetirizine HCl (ZyrTEC) 10 mg DAILY PO 12/11/21 09:00 12/11/21 08:38 Levothyroxine Sodium (Synthroid) 25 mcg DAILYAC PO 12/11/21 07:30 12/11/21 08:39 Multivitamins/ Calcium (Thera-M Plus) 1 tab DAILY PO 12/11/21 09:00 12/11/21 08:38 Rivaroxaban (Xarelto) 15 mg 1700 PO 12/10/21 17:00 12/11/21 16:57 Acetaminophen (Tylenol) 650 mg PRN Q4HRS PRN PO MILD PAIN / TEMP > 100.3'F 12/10/21 14:00 Acetaminophen (Tylenol Supp) 650 mg PRN Q4HRS PRN RC 2nd choice pain fever 12/10/21 14:00 Alprazolam (Xanax) 0.25 mg PRN Q6HRS PRN PO ANXIETY / AGITATION 12/10/21 14:15 Aripiprazole (Abilify) 5 mg DAILY PO 12/11/21 09:00 12/11/21 08:37 Citalopram Hydrobromide (CeleXA) 20 mg DAILY PO 12/11/21 09:00 12/11/21 08:37 Metoprolol Tartrate (Lopressor) 25 mg BID PO 12/10/21 21:00 12/11/21 08:38 Lurasidone HCl (Latuda) 60 mg DAILYWBKFT PO 12/11/21 08:00 12/11/21 08:54 Current Medications Medications (Trade) Dose Ordered Sig/Ted Route PRN Reason Start Time Stop Time Status Last Admin Dose Admin Cetirizine HCl (ZyrTEC) 10 mg DAILY PO 12/11/21 09:00 12/11/21 08:38 Levothyroxine Sodium (Synthroid) 25 mcg DAILYAC PO 12/11/21 07:30 12/11/21 08:39 Multivitamins/ Calcium (Thera-M Plus) 1 tab DAILY PO 12/11/21 09:00 12/11/21 08:38 Aripiprazole (Abilify) 5 mg DAILY PO 12/11/21 09:00 12/11/21 08:37 Citalopram Hydrobromide (CeleXA) 20 mg DAILY PO 12/11/21 09:00 12/11/21 08:37 Metoprolol Tartrate (Lopressor) 25 mg BID PO 12/10/21 21:00 12/11/21 08:38 Lurasidone HCl (Latuda) 60 mg DAILYWBKFT PO 12/11/21 08:00 12/11/21 08:54 I have reviewed the current psychotropics carefully including drug interactions. Risk benefit ratio favors no change other than as noted in my dictated progress note. Diagnosis: Problems: (1) COVID-19 (2) Impulse control disorder, unspecified (3) Anxiety disorder, unspecified (4) Dementia, vascular, with depression (5) Dementia, vascular, with delusions (6) Dementia in Alzheimer's disease with depression (7) Dementia in Alzheimer's disease with delusions (8) Dementia of the Alzheimer's type with early onset with behavioral disturbance (9) Major neurocognitive disorder ISAURO BECKHAM MD Dec 11, 2021 20:57
[2021-12-11 23:07] LABS: THYROXINE 5.7 ug/dL (4.5-12.0)
[2021-12-12 01:23] LABS: HEMOGLOBIN A1C 5.6 % (4.8-5.6)
[2021-12-12 06:35] VITALS: BP 147/75
[2021-12-12] MEDS: LEVOTHYROXINE 25 MCG TABLET. PO SCH (07:45)
[2021-12-12] MEDS: MULTIVITAMIN with MINERAL TABLET. PO SCH (08:12)
[2021-12-12] MEDS: CETIRIZINE HCL 10 MG TABLET PO SCH (08:12)
[2021-12-12] MEDS: CITALOPRAM 20 MG TABLET. PO SCH (08:12)
[2021-12-12] MEDS: METOPROLOL TART IMMED RELEASE 25 MG TABLET. PO SCH ×2 (08:12→20:27)
[2021-12-12] MEDS: ARIPiprazole 5 MG TABLET PO SCH (08:12)
[2021-12-12] MEDS: LURASIDONE 40 MG TABLET. PO SCH (08:13)
--- NOTE | 2021-12-12 12:19 | TX PLAN ---
Interdisciplinary Tx Plan Admission Information Dec 10, 2021 at 12:40 Legal Status (on Admission): Voluntary DPOA/Guardian Name: Arzate (Bobby) and Ursula Landeros Contact Phone Number: Sergio Fulton)[phone] or Ursula Fulton)[phone] Verified Code Status: DNR Allergies: Coded Allergies: No Known Drug Allergies (Unverified , 11/21/21) Diagnoses Primary Diagnosis: Major neurocognitive disorder, early probably vascular with delusions. Psychotic disorder, unspecified; rule out major depressive disorder with psychotic features. Reasons for Admission: Delusions, Agitated, Sig. Change Sleep, Anxiety/Panic, Hallucinations, Suicidal ideation, Suspicious/paranoid, Confusion/Disoriented Problem in Patient's Words: "I was in a bad way and having bad thoughts that I really don't want to remember." Problems Active Problems: Pt still presents with some recent memory loss though she is not having the psychosis at this time. Pt will continue to be monitored for the memory loss, anxiety, and for any potential return of psychosis. Inactive Problems: Delusions, hallucination, SI, agitation, paranoia Pt Strengths/Limitations Ability for [place]: Poor Cognitive Functioning/Ability: Fair Communication Skills/Ability: Fair Financial Resources: Good Insight/Judgement: Fair Intellectual Ability: Good Physical Health: Fair Social Skills: Good Stability in Family: Good Stability in School/Work: Good Verbal Skills: Good Discharge Criteria Discharge Criteria: Able meet basic life need, No need for close observ., Able to meet health needs, OP monitor medical prob, Adequate arrangements @DC, Adeq uate self-care, Verbal commit med comply, Improved behavior, Improved mood/thought Other Discharge Comments: None at this time. Preliminary Discharge Plan Preliminary DC Plan: Placement Needed Special Precautions Special Precautions: Agitation/Assault Fall Risk: Low Initial D/C Plan Family is seeking placement most likely at [facility]. Identified Discharge Needs: Pending course of treatment; most likely will need to be followed by a psychiatrist as well as PCP. Currently Utilized Resources Currently Utilized Resources/P: PCP/Nurse Practitioner-Janine Chisholm Son-Sergio DIL-Ursual Grandson-Viraj Granddaughter-Leanne Referrals Community Resources: Will look into a referral for psychiatry. If pt goes to [facility], she could most likely be followed by their psychiatrist. Identified Problems/Hx/Goals Objectives/Short-Term Goals Short Term Goals: Control abnormal behavior, Dec. Aggression, Dec. Hallucination/Delus, Medication Stabilization, Monitor Med Effects, No Suicidal/Raffy. ideation Short Term Goals in Patient's: For pts medications to be stable with no symptoms of the psychosis returning. Interventions/Frequency Staff Interventions/Frequency&: Psychiatry to assess pt three times per week for medication management. Nursing to assess behaviors, monitor medications, and complete 15 minute checks daily. Social work to see pt at least two times weekly to aid in return to placement. Activities to promote stim/engagement. 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 Education: Pt graduated high school and later graduated from [employer] with a nursing degree. Community Follow-up Possibly f/u with leather stitcher. Pt should also f/u with PCP and consider setting up services with a psychiatrist. Community Provider/Family Inpu: Pt provided input in her assessment as did family. Treatment Plan Explained Patient/B[employer]le House [employer] Supervisor had this treatment plan explained to him/her as indicated by the signature below and has been given the opportunity to ask questions and make suggestions: Date: Patient/[employer] Supervisor Signature: LUISA BLANCO Dec 12, 2021 12:19
[2021-12-12 16:14] VITALS: BP 116/72
[2021-12-12] MEDS: RIVAROXABAN 15 MG TABLET. PO SCH (17:36)
--- NOTE | 2021-12-12 21:19 | PDOC ---
Exam Note: Don Note: Please also refer to the separate dictated note~for this date of service dictated separately.~Patient seen individually. Discussed the patient with Nursing staff reviewed the chart.~Reviewed interim history and current functioning. Reviewed vital signs,~Labs/ Radiology~and current medications noted below. Continue current treatment with the changes noted in the dictated addendum note Assessment: Vital Signs/I&O: Vital Signs Date Time Temp Pulse Resp B/P (MAP) Pulse Ox O2 Delivery O2 Flow Rate FiO2 12/12/21 20:27 71 116/72 12/12/21 16:14 97.8 18 96 Room Air 12/10/21 14:08 96.0 I & O 12/11/21 12/11/21 12/12/21 15:00 23:00 07:00 Intake Total 840 ml 440 ml Balance 840 ml 440 ml Current Medications: Meds: Current Medications Medications (Trade) Dose Ordered Sig/Ted Route PRN Reason Start Time Stop Time Status Last Admin Dose Admin Acetaminophen (Tylenol) 650 mg PRN Q6HRS PRN PO MILD PAIN / TEMP > 100.3'F 12/10/21 13:30 12/10/21 13:59 DC Multi-Ingredient Ointment (Analgesic [place]) 1 abraham PRN QID PRN TP MUSCLE PAIN 12/10/21 13:30 12/10/21 13:59 DC Al Hydroxide/Mg Hydroxide (Mylanta Plus Xs) 15 ml PRN AFTMEALHC PRN PO DYSPEPSIA 12/10/21 13:30 12/10/21 13:59 DC Magnesium Hydroxide (Milk Of Magnesia) 2,400 mg PRN QHS PRN PO CONSTIPATION 12/10/21 13:30 12/10/21 13:59 DC Cetirizine HCl (ZyrTEC) 10 mg DAILY PO 12/11/21 09:00 12/12/21 08:12 Levothyroxine Sodium (Synthroid) 25 mcg DAILYAC PO 12/11/21 07:30 12/12/21 15:31 DC 12/12/21 07:45 Multivitamins/ Calcium (Thera-M Plus) 1 tab DAILY PO 12/11/21 09:00 12/12/21 08:12 Rivaroxaban (Xarelto) 15 mg 1700 PO 12/10/21 17:00 12/12/21 17:36 Acetaminophen (Tylenol) 650 mg PRN Q4HRS PRN PO MILD PAIN / TEMP > 100.3'F 12/10/21 14:00 Acetaminophen (Tylenol Supp) 650 mg PRN Q4HRS PRN RC 2nd choice pain fever 12/10/21 14:00 Alprazolam (Xanax) 0.25 mg PRN Q6HRS PRN PO ANXIETY / AGITATION 12/10/21 14:15 Aripiprazole (Abilify) 5 mg DAILY PO 12/11/21 09:00 12/12/21 08:12 Citalopram Hydrobromide (CeleXA) 20 mg DAILY PO 12/11/21 09:00 12/12/21 08:12 Metoprolol Tartrate (Lopressor) 25 mg BID PO 12/10/21 21:00 12/12/21 20:27 Lurasidone HCl (Latuda) 60 mg DAILYWBKFT PO 12/11/21 08:00 12/12/21 08:13 Levothyroxine Sodium (Synthroid) 25 mcg DAILY06 PO 12/13/21 06:00 I have reviewed the current psychotropics carefully including drug interactions. Risk benefit ratio favors no change other than as noted in my dictated progress note. 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
[2021-12-13 05:53] VITALS: BP 155/69
[2021-12-13] MEDS: LEVOTHYROXINE 25 MCG TABLET. PO SCH (06:00)
--- NOTE | 2021-12-13 06:50 | PDOC ---
Exam Note: Don Note: This note is a late entry for 12/11/2021 covers elements not covered in my initial note. Subjective: The patient was seen on telehealth rounds on 12/11/2021 with Colin CAPUTO, discussed and reviewed the chart. The patient slept 8-1/4 hours previous night. Overall the patient is doing much better. She seems more coherent, oriented. Psychotic symptoms seemed to be subsiding. She has been attending groups and psychotherapy visits in the dayroom with Dona Vergara (social services designee) and Raysa (activity therapy). Her appetite is better as well though she has lost total of 5 kgs. Review of Systems: No CV, , pulmonary, eye, ENT system symptoms on review. Reliability fair. Mental Status Exam: The patient is oriented to herself and situation. Speech coherent. Abstraction fair. Computation somewhat impaired. Language function intact. Mood and affect improved. She is quite animated, verbal, interactive asking when she would be able to see me. No suicidal or homicidal ideation, no clear psychotic symptoms. Laboratory Data: Reviewed. 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 Anxiety disorder unspecified. Impulse control disorder unspecified. Psychotic disorder unspecified. Plan: Continue current psychotropics including Xanax p.r.n., Abilify, Celexa and Latuda. Reviewed drug interactions and risk-benefit ratio favors no change at this time. Assessment: Vital Signs/I&O: Vital Signs Date Time Temp Pulse Resp B/P (MAP) Pulse Ox O2 Delivery O2 Flow Rate FiO2 12/13/21 05:53 98.4 72 18 155/69 (97) 94 12/12/21 16:14 Room Air 12/10/21 14:08 96.0 I & O 12/12/21 12/12/21 12/13/21 15:00 23:00 07:00 Intake Total 480 ml 480 ml Balance 480 ml 480 ml Current Medications: Meds: Current Medications Medications (Trade) Dose Ordered Sig/Ted Route PRN Reason Start Time Stop Time Status Last Admin Dose Admin Acetaminophen (Tylenol) 650 mg PRN Q6HRS PRN PO MILD PAIN / TEMP > 100.3'F 12/10/21 13:30 12/10/21 13:59 DC Multi-Ingredient Ointment (Analgesic [place]) 1 abraham PRN QID PRN TP MUSCLE PAIN 12/10/21 13:30 12/10/21 13:59 DC Al Hydroxide/Mg Hydroxide (Mylanta Plus Xs) 15 ml PRN AFTMEALHC PRN PO DYSPEPSIA 12/10/21 13:30 12/10/21 13:59 DC Magnesium Hydroxide (Milk Of Magnesia) 2,400 mg PRN QHS PRN PO CONSTIPATION 12/10/21 13:30 12/10/21 13:59 DC Cetirizine HCl (ZyrTEC) 10 mg DAILY PO 12/11/21 09:00 12/12/21 08:12 Levothyroxine Sodium (Synthroid) 25 mcg DAILYAC PO 12/11/21 07:30 12/12/21 15:31 DC 12/12/21 07:45 Multivitamins/ Calcium (Thera-M Plus) 1 tab DAILY PO 12/11/21 09:00 12/12/21 08:12 Rivaroxaban (Xarelto) 15 mg 1700 PO 12/10/21 17:00 12/12/21 17:36 Acetaminophen (Tylenol) 650 mg PRN Q4HRS PRN PO MILD PAIN / TEMP > 100.3'F 12/10/21 14:00 Acetaminophen (Tylenol Supp) 650 mg PRN Q4HRS PRN RC 2nd choice pain fever 12/10/21 14:00 Alprazolam (Xanax) 0.25 mg PRN Q6HRS PRN PO ANXIETY / AGITATION 12/10/21 14:15 Aripiprazole (Abilify) 5 mg DAILY PO 12/11/21 09:00 12/12/21 08:12 Citalopram Hydrobromide (CeleXA) 20 mg DAILY PO 12/11/21 09:00 12/12/21 08:12 Metoprolol Tartrate (Lopressor) 25 mg BID PO 12/10/21 21:00 12/12/21 20:27 Lurasidone HCl (Latuda) 60 mg DAILYWBKFT PO 12/11/21 08:00 12/12/21 08:13 Levothyroxine Sodium (Synthroid) 25 mcg DAILY06 PO 12/13/21 06:00 12/13/21 06:00 Current Medications Medications (Trade) Dose Ordered Sig/Ted Route PRN Reason Start Time Stop Time Status Last Admin Dose Admin Levothyroxine Sodium (Synthroid) 25 mcg DAILY06 PO 12/13/21 06:00 12/13/21 06:00 I have reviewed the current psychotropics carefully including drug interactions. Risk benefit ratio favors no change other than as noted in my dictated progress note. Diagnosis: Problems: (1) Impulse control disorder, unspecified (2) Anxiety disorder, unspecified (3) Dementia, vascular, with depression (4) Dementia, vascular, with delusions (5) Dementia in Alzheimer's disease with depression (6) Dementia in Alzheimer's disease with delusions (7) Dementia of the Alzheimer's type with early onset with behavioral disturbance (8) Major neurocognitive disorder ISAURO BECKHAM MD Dec 13, 2021 06:50
[2021-12-13] MEDS: METOPROLOL TART IMMED RELEASE 25 MG TABLET. PO SCH ×2 (07:24→20:27)
[2021-12-13] MEDS: ARIPiprazole 5 MG TABLET PO SCH (07:24)
[2021-12-13] MEDS: CITALOPRAM 20 MG TABLET. PO SCH (07:27)
[2021-12-13] MEDS: MULTIVITAMIN with MINERAL TABLET. PO SCH (07:27)
[2021-12-13] MEDS: CETIRIZINE HCL 10 MG TABLET PO SCH (07:27)
[2021-12-13] MEDS: LURASIDONE 40 MG TABLET. PO SCH (07:29)
[2021-12-13 16:10] VITALS: BP 105/58
[2021-12-13] MEDS: RIVAROXABAN 15 MG TABLET. PO SCH (16:33)
--- NOTE | 2021-12-13 21:16 | PDOC ---
Exam Note: Don Note: Please also refer to the separate dictated note~for this date of service dictated separately.~Patient seen individually. Discussed the patient with Nursing staff reviewed the chart.~Reviewed interim history and current functioning. Reviewed vital signs,~Labs/ Radiology~and current medications noted below. Continue current treatment with the changes noted in the dictated addendum note Assessment: Vital Signs/I&O: Vital Signs Date Time Temp Pulse Resp B/P (MAP) Pulse Ox O2 Delivery O2 Flow Rate FiO2 12/13/21 20:27 67 105/58 12/13/21 16:10 98.0 20 96 Room Air 12/10/21 14:08 96.0 I & O 12/12/21 12/12/21 12/13/21 15:00 23:00 07:00 Intake Total 480 ml 480 ml Balance 480 ml 480 ml Current Medications: Meds: Current Medications Medications (Trade) Dose Ordered Sig/Ted Route PRN Reason Start Time Stop Time Status Last Admin Dose Admin Acetaminophen (Tylenol) 650 mg PRN Q6HRS PRN PO MILD PAIN / TEMP > 100.3'F 12/10/21 13:30 12/10/21 13:59 DC Multi-Ingredient Ointment (Analgesic [place]) 1 abraham PRN QID PRN TP MUSCLE PAIN 12/10/21 13:30 12/10/21 13:59 DC Al Hydroxide/Mg Hydroxide (Mylanta Plus Xs) 15 ml PRN AFTMEALHC PRN PO DYSPEPSIA 12/10/21 13:30 12/10/21 13:59 DC Magnesium Hydroxide (Milk Of Magnesia) 2,400 mg PRN QHS PRN PO CONSTIPATION 12/10/21 13:30 12/10/21 13:59 DC Cetirizine HCl (ZyrTEC) 10 mg DAILY PO 12/11/21 09:00 12/13/21 07:27 Levothyroxine Sodium (Synthroid) 25 mcg DAILYAC PO 12/11/21 07:30 12/12/21 15:31 DC 12/12/21 07:45 Multivitamins/ Calcium (Thera-M Plus) 1 tab DAILY PO 12/11/21 09:00 12/13/21 07:27 Rivaroxaban (Xarelto) 15 mg 1700 PO 12/10/21 17:00 12/13/21 16:33 Acetaminophen (Tylenol) 650 mg PRN Q4HRS PRN PO MILD PAIN / TEMP > 100.3'F 12/10/21 14:00 Acetaminophen (Tylenol Supp) 650 mg PRN Q4HRS PRN RC 2nd choice pain fever 12/10/21 14:00 Alprazolam (Xanax) 0.25 mg PRN Q6HRS PRN PO ANXIETY / AGITATION 12/10/21 14:15 Aripiprazole (Abilify) 5 mg DAILY PO 12/11/21 09:00 12/13/21 07:24 Citalopram Hydrobromide (CeleXA) 20 mg DAILY PO 12/11/21 09:00 12/13/21 07:27 Metoprolol Tartrate (Lopressor) 25 mg BID PO 12/10/21 21:00 12/13/21 07:24 Lurasidone HCl (Latuda) 60 mg DAILYWBKFT PO 12/11/21 08:00 12/13/21 07:29 Levothyroxine Sodium (Synthroid) 25 mcg DAILY06 PO 12/13/21 06:00 12/13/21 06:00 Current Medications Medications (Trade) Dose Ordered Sig/Ted Route PRN Reason Start Time Stop Time Status Last Admin Dose Admin Levothyroxine Sodium (Synthroid) 25 mcg DAILY06 PO 12/13/21 06:00 12/13/21 06:00 I have reviewed the current psychotropics carefully including drug interactions. Risk benefit ratio favors no change other than as noted in my dictated progress note. Diagnosis: Problems: (1) Impulse control disorder, unspecified (2) Anxiety disorder, unspecified (3) Dementia, vascular, with depression (4) Dementia, vascular, with delusions (5) Dementia in Alzheimer's disease with depression (6) Dementia in Alzheimer's disease with delusions (7) Dementia of the Alzheimer's type with early onset with behavioral disturbance (8) Major neurocognitive disorder ISAURO BECKHAM MD Dec 13, 2021 21:16
[2021-12-14] MEDS: LEVOTHYROXINE 25 MCG TABLET. PO SCH (05:14)
[2021-12-14 05:49] VITALS: BP 137/77
--- NOTE | 2021-12-14 07:06 | PDOC ---
Exam Note: Don Note: This note is a late entry for 12/12/2021 covers elements not covered in my initial note. Subjective: The patient was seen individually at treatment team meeting in the morning on 12/12/2021 with Tabatha Gomes, Ursula Landeros, and Dona Booker (social service manager), Raysa, activity therapy, and Dante CAPUTO, discussed and reviewed the chart. Reviewed interim history and current functioning. The patient slept 9-3/4 hours previous night. Sleeping average 8 hours. Appetite is 75% and better. She is well oriented which is quite improvement than psychotic symptoms appear to have been subsided. In the past we reviewed her detailed history where she believed she was being set on fire and she had put a pillow case on her head to prevent this and she was convinced that staff was going to kill her and take her to a chamber. All of this seems to have subsided and she is tolerating her current psychotropics. I met with her indiv idually in the evening. Review of Systems: No CV, , pulmonary, eye, ENT system symptoms on review. Mental Status Exam: The patient is reasonably oriented. Speech coherent has some latency. Abstraction fair. Computation impaired. Language function intact. Attention span short. Mood and affect is improved. She does have short-term memory deficits. Laboratory Data: Reviewed. Impression: Major neurocognitive disorder, early vascular with delusion, depression. Anxiety disorder unspecified. Impulse control disorder unspecified. Plan: Continue current psychotropics. She is on two atypical antipsychotics but since she is doing so much better with the psychosis and cognition, I will leave these unchanged and these can be tapered later outpatient at the retirement. Assessment: Vital Signs/I&O: Vital Signs Date Time Temp Pulse Resp B/P (MAP) Pulse Ox O2 Delivery O2 Flow Rate FiO2 12/14/21 05:49 98.0 80 18 137/77 (97) 95 12/13/21 16:10 Room Air 12/10/21 14:08 96.0 I & O 12/13/21 12/13/21 12/14/21 15:00 23:00 07:00 Intake Total 720 ml 540 ml Balance 720 ml 540 ml Current Medications: Meds: Current Medications Medications (Trade) Dose Ordered Sig/Ted Route PRN Reason Start Time Stop Time Status Last Admin Dose Admin Acetaminophen (Tylenol) 650 mg PRN Q6HRS PRN PO MILD PAIN / TEMP > 100.3'F 12/10/21 13:30 12/10/21 13:59 DC Multi-Ingredient Ointment (Analgesic [place]) 1 abraham PRN QID PRN TP MUSCLE PAIN 12/10/21 13:30 12/10/21 13:59 DC Al Hydroxide/Mg Hydroxide (Mylanta Plus Xs) 15 ml PRN AFTMEALHC PRN PO DYSPEPSIA 12/10/21 13:30 12/10/21 13:59 DC Magnesium Hydroxide (Milk Of Magnesia) 2,400 mg PRN QHS PRN PO CONSTIPATION 12/10/21 13:30 12/10/21 13:59 DC Cetirizine HCl (ZyrTEC) 10 mg DAILY PO 12/11/21 09:00 12/13/21 07:27 Levothyroxine Sodium (Synthroid) 25 mcg DAILYAC PO 12/11/21 07:30 12/12/21 15:31 DC 12/12/21 07:45 Multivitamins/ Calcium (Thera-M Plus) 1 tab DAILY PO 12/11/21 09:00 12/13/21 07:27 Rivaroxaban (Xarelto) 15 mg 1700 PO 12/10/21 17:00 12/13/21 16:33 Acetaminophen (Tylenol) 650 mg PRN Q4HRS PRN PO MILD PAIN / TEMP > 100.3'F 12/10/21 14:00 Acetaminophen (Tylenol Supp) 650 mg PRN Q4HRS PRN RC 2nd choice pain fever 12/10/21 14:00 Alprazolam (Xanax) 0.25 mg PRN Q6HRS PRN PO ANXIETY / AGITATION 12/10/21 14:15 Aripiprazole (Abilify) 5 mg DAILY PO 12/11/21 09:00 12/13/21 07:24 Citalopram Hydrobromide (CeleXA) 20 mg DAILY PO 12/11/21 09:00 12/13/21 07:27 Metoprolol Tartrate (Lopressor) 25 mg BID PO 12/10/21 21:00 12/13/21 07:24 Lurasidone HCl (Latuda) 60 mg DAILYWBKFT PO 12/11/21 08:00 12/13/21 07:29 Levothyroxine Sodium (Synthroid) 25 mcg DAILY06 PO 12/13/21 06:00 12/14/21 05:14 I have reviewed the current psychotropics carefully including drug interactions. Risk benefit ratio favors no change other than as noted in my dictated progress note. Diagnosis: Problems: (1) Impulse control disorder, unspecified (2) Anxiety disorder, unspecified (3) Dementia, vascular, with depression (4) Dementia, vascular, with delusions (5) Dementia in Alzheimer's disease with depression (6) Dementia in Alzheimer's disease with delusions (7) Dementia of the Alzheimer's type with early onset with behavioral disturbance (8) Major neurocognitive disorder ISAURO BECKHAM MD Dec 14, 2021 07:06
[2021-12-14 07:17] LABS: BASO # 0.1 x10^3/uL (0.0-0.2); BASO % 2 % (0-3); EOS # 0.1 x10^3/uL (0.0-0.7); EOS % 2 % (0-3); HEMATOCRIT 30.5 % (36.0-47.0); HEMOGLOBIN 10.1 g/dL (12.0-15.5); LYMPH # 0.7 x10^3/uL (1.0-4.8); LYMPH % 13 % (24-48); MEAN CORPUSCULAR HEMOGLOBIN 31 pg (25-35); MEAN CORPUSCULAR HGB CONC 33 g/dL (31-37); MEAN CORPUSCULAR VOLUME 94 fL (79-100); MONO # 0.4 x10^3/uL (0.0-1.1); MONO % 8 % (0-9); NEUT % 75 % (31-73); PLATELET COUNT 270 x10^3/uL (140-400); RED BLOOD COUNT 3.23 x10^6/uL (3.50-5.40); RED CELL DISTRIBUTION WIDTH 16.2 % (11.5-14.5); WHITE BLOOD COUNT 5.3 x10^3/uL (4.0-11.0)
--- NOTE | 2021-12-14 07:33 | PDOC ---
Exam Note: Don Note: This note is a late entry for 12/13/2021 covers elements not covered in my initial note. Subjective: The patient was seen on telehealth rounds on 12/13/2021 with Radha CAPUTO, discussed and reviewed the chart. The patient slept 8-1/2 hours previous night. Overall the patient is fairly cooperative on the unit. I had a lengthy discussion with Ursula Landeros, patients [id number] who has been coordinating her care. We did discuss the two CT heads indicative of vascular changes which are fairly significant and probably contributing to her psychosis. There is no [id number] comparison of the two CTs in July and October 2021 but there does seem to be some progression in the vascular changes and atrophy both cerebral and cerebellar. Review of Systems: No CV, , pulmonary, eye, ENT system symptoms on review. Mental Status Exam: The patient is reasonably oriented. Speech coherent. Abstraction fair. Computation impaired. Language function intact. She does have short-term memory deficits. No suicidal or homicidal ideation. Laboratory Data: Reviewed. 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 Anxiety disorder unspecified. Impulse control disorder unspecified. Psychotic disorder unspecified. Plan: Continue current psychotropics. Assessment: Vital Signs/I&O: Vital Signs Date Time Temp Pulse Resp B/P (MAP) Pulse Ox O2 Delivery O2 Flow Rate FiO2 12/14/21 05:49 98.0 80 18 137/77 (97) 95 12/13/21 16:10 Room Air 12/10/21 14:08 96.0 I & O 12/13/21 12/13/21 12/14/21 15:00 23:00 07:00 Intake Total 720 ml 540 ml Balance 720 ml 540 ml Labs: Laboratory Tests Test 12/14/21 07:00 White Blood Count 5.3 x10^3/uL (4.0-11.0) Red Blood Count 3.23 x10^6/uL (3.50-5.40) L Hemoglobin 10.1 g/dL (12.0-15.5) L Hematocrit 30.5 % (36.0-47.0) L Mean Corpuscular Volume 94 fL (79-100) Mean Corpuscular Hemoglobin 31 pg (25-35) Mean Corpuscular Hemoglobin Concent 33 g/dL (31-37) Red Cell Distribution Width 16.2 % (11.5-14.5) H Platelet Count 270 x10^3/uL (140-400) Neutrophils (%) (Auto) 75 % (31-73) H Lymphocytes (%) (Auto) 13 % (24-48) L Monocytes (%) (Auto) 8 % (0-9) Eosinophils (%) (Auto) 2 % (0-3) Basophils (%) (Auto) 2 % (0-3) Neutrophils # (Auto) 4.0 x10^3uL (1.8-7.7) Lymphocytes # (Auto) 0.7 x10^3/uL (1.0-4.8) L Monocytes # (Auto) 0.4 x10^3/uL (0.0-1.1) Eosinophils # (Auto) 0.1 x10^3/uL (0.0-0.7) Basophils # (Auto) 0.1 x10^3/uL (0.0-0.2) Current Medications: Meds: Laboratory Tests Test 12/14/21 07:00 White Blood Count 5.3 x10^3/uL Red Blood Count 3.23 x10^6/uL Hemoglobin 10.1 g/dL Hematocrit 30.5 % Mean Corpuscular Volume 94 fL Mean Corpuscular Hemoglobin 31 pg Mean Corpuscular Hemoglobin Concent 33 g/dL Red Cell Distribution Width 16.2 % Platelet Count 270 x10^3/uL Neutrophils (%) (Auto) 75 % Lymphocytes (%) (Auto) 13 % Monocytes (%) (Auto) 8 % Eosinophils (%) (Auto) 2 % Basophils (%) (Auto) 2 % Neutrophils # (Auto) 4.0 x10^3uL Lymphocytes # (Auto) 0.7 x10^3/uL Monocytes # (Auto) 0.4 x10^3/uL Eosinophils # (Auto) 0.1 x10^3/uL Basophils # (Auto) 0.1 x10^3/uL Current Medications Medications (Trade) Dose Ordered Sig/Ted Route PRN Reason Start Time Stop Time Status Last Admin Dose Admin Acetaminophen (Tylenol) 650 mg PRN Q6HRS PRN PO MILD PAIN / TEMP > 100.3'F 12/10/21 13:30 12/10/21 13:59 DC Multi-Ingredient Ointment (Analgesic [place]) 1 abraham PRN QID PRN TP MUSCLE PAIN 12/10/21 13:30 12/10/21 13:59 DC Al Hydroxide/Mg Hydroxide (Mylanta Plus Xs) 15 ml PRN AFTMEALHC PRN PO DYSPEPSIA 12/10/21 13:30 12/10/21 13:59 DC Magnesium Hydroxide (Milk Of Magnesia) 2,400 mg PRN QHS PRN PO CONSTIPATION 12/10/21 13:30 12/10/21 13:59 DC Cetirizine HCl (ZyrTEC) 10 mg DAILY PO 12/11/21 09:00 12/13/21 07:27 Levothyroxine Sodium (Synthroid) 25 mcg DAILYAC PO 12/11/21 07:30 12/12/21 15:31 DC 12/12/21 07:45 Multivitamins/ Calcium (Thera-M Plus) 1 tab DAILY PO 12/11/21 09:00 12/13/21 07:27 Rivaroxaban (Xarelto) 15 mg 1700 PO 12/10/21 17:00 12/13/21 16:33 Acetaminophen (Tylenol) 650 mg PRN Q4HRS PRN PO MILD PAIN / TEMP > 100.3'F 12/10/21 14:00 Acetaminophen (Tylenol Supp) 650 mg PRN Q4HRS PRN RC 2nd choice pain fever 12/10/21 14:00 Alprazolam (Xanax) 0.25 mg PRN Q6HRS PRN PO ANXIETY / AGITATION 12/10/21 14:15 Aripiprazole (Abilify) 5 mg DAILY PO 12/11/21 09:00 12/13/21 07:24 Citalopram Hydrobromide (CeleXA) 20 mg DAILY PO 12/11/21 09:00 12/13/21 07:27 Metoprolol Tartrate (Lopressor) 25 mg BID PO 12/10/21 21:00 12/13/21 07:24 Lurasidone HCl (Latuda) 60 mg DAILYWBKFT PO 12/11/21 08:00 12/13/21 07:29 Levothyroxine Sodium (Synthroid) 25 mcg DAILY06 PO 12/13/21 06:00 12/14/21 05:14 I have reviewed the current psychotropics carefully including drug interactions. Risk benefit ratio favors no change other than as noted in my dictated progress note. Diagnosis: Problems: (1) Impulse control disorder, unspecified (2) Anxiety disorder, unspecified (3) Dementia, vascular, with depression (4) Dementia, vascular, with delusions (5) Dementia in Alzheimer's disease with depression (6) Dementia in Alzheimer's disease with delusions (7) Dementia of the Alzheimer's type with early onset with behavioral disturbance (8) Major neurocognitive disorder ISAURO BECKHAM MD Dec 14, 2021 07:33
[2021-12-14 07:41] LABS: ALBUMIN 3.1 g/dL (3.4-5.0); ALBUMIN/GLOBULIN RATIO 1.1 (1.0-1.7); CALCIUM 8.1 mg/dL (8.5-10.1); CREATININE 0.8 mg/dL (0.6-1.0); POTASSIUM 4.7 mmol/L (3.5-5.1); TOTAL BILIRUBIN 0.4 mg/dL (0.2-1.0); TOTAL PROTEIN 5.9 g/dL (6.4-8.2)
[2021-12-14] MEDS: ARIPiprazole 5 MG TABLET PO SCH (08:47)
[2021-12-14] MEDS: CITALOPRAM 20 MG TABLET. PO SCH (08:47)
[2021-12-14] MEDS: CETIRIZINE HCL 10 MG TABLET PO SCH (08:47)
[2021-12-14] MEDS: MULTIVITAMIN with MINERAL TABLET. PO SCH (08:48)
[2021-12-14] MEDS: METOPROLOL TART IMMED RELEASE 25 MG TABLET. PO SCH ×2 (08:48→20:04)
[2021-12-14] MEDS: LURASIDONE 40 MG TABLET. PO SCH (08:49)
[2021-12-14 16:03] VITALS: BP 107/68
[2021-12-14] MEDS: RIVAROXABAN 15 MG TABLET. PO SCH (17:02)
--- NOTE | 2021-12-14 21:32 | PDOC ---
Exam Note: Don Note: Please also refer to the separate dictated note~for this date of service dictated separately.~Patient seen individually. Discussed the patient with Nursing staff reviewed the chart.~Reviewed interim history and current functioning. Reviewed vital signs,~Labs/ Radiology~and current medications noted below. Continue current treatment with the changes noted in the dictated addendum note Assessment: Vital Signs/I&O: Vital Signs Date Time Temp Pulse Resp B/P (MAP) Pulse Ox O2 Delivery O2 Flow Rate FiO2 12/14/21 20:04 74 107/68 12/14/21 16:03 97.8 20 96 Room Air 12/10/21 14:08 96.0 I & O 12/13/21 12/13/21 12/14/21 15:00 23:00 07:00 Intake Total 720 ml 540 ml Balance 720 ml 540 ml Labs: Laboratory Tests Test 12/14/21 07:00 White Blood Count 5.3 x10^3/uL (4.0-11.0) Red Blood Count 3.23 x10^6/uL (3.50-5.40) L Hemoglobin 10.1 g/dL (12.0-15.5) L Hematocrit 30.5 % (36.0-47.0) L Mean Corpuscular Volume 94 fL (79-100) Mean Corpuscular Hemoglobin 31 pg (25-35) Mean Corpuscular Hemoglobin Concent 33 g/dL (31-37) Red Cell Distribution Width 16.2 % (11.5-14.5) H Platelet Count 270 x10^3/uL (140-400) Neutrophils (%) (Auto) 75 % (31-73) H Lymphocytes (%) (Auto) 13 % (24-48) L Monocytes (%) (Auto) 8 % (0-9) Eosinophils (%) (Auto) 2 % (0-3) Basophils (%) (Auto) 2 % (0-3) Neutrophils # (Auto) 4.0 x10^3uL (1.8-7.7) Lymphocytes # (Auto) 0.7 x10^3/uL (1.0-4.8) L Monocytes # (Auto) 0.4 x10^3/uL (0.0-1.1) Eosinophils # (Auto) 0.1 x10^3/uL (0.0-0.7) Basophils # (Auto) 0.1 x10^3/uL (0.0-0.2) Sodium Level 137 mmol/L (136-145) Potassium Level 4.7 mmol/L (3.5-5.1) Chloride Level 101 mmol/L (98-107) Carbon Dioxide Level 30 mmol/L (21-32) Anion Gap 6 (6-14) Blood Urea Nitrogen 23 mg/dL (7-20) H Creatinine 0.8 mg/dL (0.6-1.0) Estimated GFR (Cockcroft-Gault) 69.0 BUN/Creatinine Ratio 29 (6-20) H Glucose Level 88 mg/dL (70-99) Calcium Level 8.1 mg/dL (8.5-10.1) L Total Bilirubin 0.4 mg/dL (0.2-1.0) Aspartate Amino Transferase (AST) 26 U/L (15-37) Alanine Aminotransferase (ALT) 38 U/L (14-59) Alkaline Phosphatase 129 U/L (46-116) H Total Protein 5.9 g/dL (6.4-8.2) L Albumin 3.1 g/dL (3.4-5.0) L Albumin/Globulin Ratio 1.1 (1.0-1.7) Current Medications: Meds: Laboratory Tests Test 12/14/21 07:00 White Blood Count 5.3 x10^3/uL Red Blood Count 3.23 x10^6/uL Hemoglobin 10.1 g/dL Hematocrit 30.5 % Mean Corpuscular Volume 94 fL Mean Corpuscular Hemoglobin 31 pg Mean Corpuscular Hemoglobin Concent 33 g/dL Red Cell Distribution Width 16.2 % Platelet Count 270 x10^3/uL Neutrophils (%) (Auto) 75 % Lymphocytes (%) (Auto) 13 % Monocytes (%) (Auto) 8 % Eosinophils (%) (Auto) 2 % Basophils (%) (Auto) 2 % Neutrophils # (Auto) 4.0 x10^3uL Lymphocytes # (Auto) 0.7 x10^3/uL Monocytes # (Auto) 0.4 x10^3/uL Eosinophils # (Auto) 0.1 x10^3/uL Basophils # (Auto) 0.1 x10^3/uL Sodium Level 137 mmol/L Potassium Level 4.7 mmol/L Chloride Level 101 mmol/L Carbon Dioxide Level 30 mmol/L Anion Gap 6 Blood Urea Nitrogen 23 mg/dL Creatinine 0.8 mg/dL Estimated GFR (Cockcroft-Gault) 69.0 BUN/Creatinine Ratio 29 Glucose Level 88 mg/dL Calcium Level 8.1 mg/dL Total Bilirubin 0.4 mg/dL Aspartate Amino Transf (AST/SGOT) 26 U/L Alanine Aminotransferase (ALT/SGPT) 38 U/L Alkaline Phosphatase 129 U/L Total Protein 5.9 g/dL Albumin 3.1 g/dL Albumin/Globulin Ratio 1.1 Current Medications Medications (Trade) Dose Ordered Sig/Ted Route PRN Reason Start Time Stop Time Status Last Admin Dose Admin Acetaminophen (Tylenol) 650 mg PRN Q6HRS PRN PO MILD PAIN / TEMP > 100.3'F 12/10/21 13:30 12/10/21 13:59 DC Multi-Ingredient Ointment (Analgesic [place]) 1 abraham PRN QID PRN TP MUSCLE PAIN 12/10/21 13:30 12/10/21 13:59 DC Al Hydroxide/Mg Hydroxide (Mylanta Plus Xs) 15 ml PRN AFTMEALHC PRN PO DYSPEPSIA 12/10/21 13:30 12/10/21 13:59 DC Magnesium Hydroxide (Milk Of Magnesia) 2,400 mg PRN QHS PRN PO CONSTIPATION 12/10/21 13:30 12/10/21 13:59 DC Cetirizine HCl (ZyrTEC) 10 mg DAILY PO 12/11/21 09:00 12/14/21 08:47 Levothyroxine Sodium (Synthroid) 25 mcg DAILYAC PO 12/11/21 07:30 12/12/21 15:31 DC 12/12/21 07:45 Multivitamins/ Calcium (Thera-M Plus) 1 tab DAILY PO 12/11/21 09:00 12/14/21 08:48 Rivaroxaban (Xarelto) 15 mg 1700 PO 12/10/21 17:00 12/14/21 17:02 Acetaminophen (Tylenol) 650 mg PRN Q4HRS PRN PO MILD PAIN / TEMP > 100.3'F 12/10/21 14:00 Acetaminophen (Tylenol Supp) 650 mg PRN Q4HRS PRN RC 2nd choice pain fever 12/10/21 14:00 Alprazolam (Xanax) 0.25 mg PRN Q6HRS PRN PO ANXIETY / AGITATION 12/10/21 14:15 Aripiprazole (Abilify) 5 mg DAILY PO 12/11/21 09:00 12/14/21 08:47 Citalopram Hydrobromide (CeleXA) 20 mg DAILY PO 12/11/21 09:00 12/14/21 08:47 Metoprolol Tartrate (Lopressor) 25 mg BID PO 12/10/21 21:00 12/14/21 08:48 Lurasidone HCl (Latuda) 60 mg DAILYWBKFT PO 12/11/21 08:00 12/14/21 08:49 Levothyroxine Sodium (Synthroid) 25 mcg DAILY06 PO 12/13/21 06:00 12/14/21 05:14 I have reviewed the current psychotropics carefully including drug interactions. Risk benefit ratio favors no change other than as noted in my dictated progress note. Diagnosis: Problems: (1) Impulse control disorder, unspecified (2) Anxiety disorder, unspecified (3) Dementia, vascular, with depression (4) Dementia, vascular, with delusions (5) Dementia in Alzheimer's disease with depression (6) Dementia in Alzheimer's disease with delusions (7) Dementia of the Alzheimer's type with early onset with behavioral disturbance (8) Major neurocognitive disorder ISAURO BECKHAM MD Dec 14, 2021 21:29
[2021-12-15] MEDS: LEVOTHYROXINE 25 MCG TABLET. PO SCH (05:38)
[2021-12-15 06:32] VITALS: BP 126/80
[2021-12-15] MEDS: MULTIVITAMIN with MINERAL TABLET. PO SCH (07:58)
[2021-12-15] MEDS: METOPROLOL TART IMMED RELEASE 25 MG TABLET. PO SCH ×2 (07:59→19:31)
[2021-12-15] MEDS: CETIRIZINE HCL 10 MG TABLET PO SCH (08:00)
[2021-12-15] MEDS: CITALOPRAM 20 MG TABLET. PO SCH (08:00)
[2021-12-15] MEDS: ARIPiprazole 5 MG TABLET PO SCH (08:00)
[2021-12-15] MEDS: LURASIDONE 40 MG TABLET. PO SCH (08:00)
[2021-12-15 15:33] VITALS: BP 100/63
[2021-12-15] MEDS: RIVAROXABAN 15 MG TABLET. PO SCH (17:23)
--- NOTE | 2021-12-15 21:37 | PDOC ---
Exam Note: Don Note: Please also refer to the separate dictated note~for this date of service dictated separately.~Patient seen individually. Discussed the patient with Nursing staff reviewed the chart.~Reviewed interim history and current functioning. Reviewed vital signs,~Labs/ Radiology~and current medications noted below. Continue current treatment with the changes noted in the dictated addendum note Assessment: Vital Signs/I&O: Vital Signs Date Time Temp Pulse Resp B/P (MAP) Pulse Ox O2 Delivery O2 Flow Rate FiO2 12/15/21 19:31 75 100/63 12/15/21 15:33 97.4 18 97 Room Air 12/10/21 14:08 96.0 I & O 12/14/21 12/14/21 12/15/21 15:00 23:00 07:00 Intake Total 600 ml 360 ml Balance 600 ml 360 ml Current Medications: Meds: Current Medications Medications (Trade) Dose Ordered Sig/Ted Route PRN Reason Start Time Stop Time Status Last Admin Dose Admin Acetaminophen (Tylenol) 650 mg PRN Q6HRS PRN PO MILD PAIN / TEMP > 100.3'F 12/10/21 13:30 12/10/21 13:59 DC Multi-Ingredient Ointment (Analgesic [place]) 1 abraham PRN QID PRN TP MUSCLE PAIN 12/10/21 13:30 12/10/21 13:59 DC Al Hydroxide/Mg Hydroxide (Mylanta Plus Xs) 15 ml PRN AFTMEALHC PRN PO DYSPEPSIA 12/10/21 13:30 12/10/21 13:59 DC Magnesium Hydroxide (Milk Of Magnesia) 2,400 mg PRN QHS PRN PO CONSTIPATION 12/10/21 13:30 12/10/21 13:59 DC Cetirizine HCl (ZyrTEC) 10 mg DAILY PO 12/11/21 09:00 12/15/21 08:00 Levothyroxine Sodium (Synthroid) 25 mcg DAILYAC PO 12/11/21 07:30 12/12/21 15:31 DC 12/12/21 07:45 Multivitamins/ Calcium (Thera-M Plus) 1 tab DAILY PO 12/11/21 09:00 12/15/21 07:58 Rivaroxaban (Xarelto) 15 mg 1700 PO 12/10/21 17:00 12/15/21 17:23 Acetaminophen (Tylenol) 650 mg PRN Q4HRS PRN PO MILD PAIN / TEMP > 100.3'F 12/10/21 14:00 Acetaminophen (Tylenol Supp) 650 mg PRN Q4HRS PRN RC 2nd choice pain fever 12/10/21 14:00 Alprazolam (Xanax) 0.25 mg PRN Q6HRS PRN PO ANXIETY / AGITATION 12/10/21 14:15 Aripiprazole (Abilify) 5 mg DAILY PO 12/11/21 09:00 12/15/21 08:00 Citalopram Hydrobromide (CeleXA) 20 mg DAILY PO 12/11/21 09:00 12/15/21 08:00 Metoprolol Tartrate (Lopressor) 25 mg BID PO 12/10/21 21:00 12/15/21 07:59 Lurasidone HCl (Latuda) 60 mg DAILYWBKFT PO 12/11/21 08:00 12/15/21 08:00 Levothyroxine Sodium (Synthroid) 25 mcg DAILY06 PO 12/13/21 06:00 12/15/21 05:38 I have reviewed the current psychotropics carefully including drug interactions. Risk benefit ratio favors no change other than as noted in my dictated progress note. Diagnosis: Problems: (1) Impulse control disorder, unspecified (2) Anxiety disorder, unspecified (3) Dementia, vascular, with depression (4) Dementia, vascular, with delusions (5) Dementia in Alzheimer's disease with depression (6) Dementia in Alzheimer's disease with delusions (7) Dementia of the Alzheimer's type with early onset with behavioral disturbance (8) Major neurocognitive disorder ISAURO BECKHAM MD Dec 15, 2021 21:37
[2021-12-16] MEDS: LEVOTHYROXINE 25 MCG TABLET. PO SCH (05:37)
[2021-12-16 06:09] VITALS: BP 154/70
--- NOTE | 2021-12-16 07:17 | PDOC ---
Exam Note: Don Note: This note is a late entry for 12/14/2021 covers elements not covered in my initial note. Subjective: The patient was seen on telehealth rounds on 12/14/2021 with Radha CAPUTO, discussed and reviewed the chart. The patient slept 8 hours previous night. Overall the patient is doing fairly well on the unit. She denies any psychotic symptoms as I questioned her on telehealth rounds. We discussed her diagnoses, treatment, follow up and placement at nursing facility, probably [facility] and she is agreeable to this. Review of Systems: No CV, , pulmonary, eye, ENT system symptoms on review. Mental Status Exam: The patient is reasonably oriented. Speech coherent. Abstraction fair. Computation somewhat impaired. Language function intact. Attention span fair. Mood and affect improved. No clear psychotic symptoms. She denied being paranoid. No suicidal or homicidal ideation. Laboratory Data: Reviewed. 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 Anxiety disorder unspecified. Impulse control disorder unspecified. Psychotic disorder unspecified. Plan: Continue current psychotropics. Assessment: Vital Signs/I&O: Vital Signs Date Time Temp Pulse Resp B/P (MAP) Pulse Ox O2 Delivery O2 Flow Rate FiO2 12/16/21 06:09 98.9 67 16 154/70 (98) 96 12/15/21 15:33 Room Air 12/10/21 14:08 96.0 I & O 12/15/21 12/15/21 12/16/21 14:59 22:59 06:59 Intake Total 600 ml 520 ml Balance 600 ml 520 ml Current Medications: Meds: Current Medications Medications (Trade) Dose Ordered Sig/Ted Route PRN Reason Start Time Stop Time Status Last Admin Dose Admin Acetaminophen (Tylenol) 650 mg PRN Q6HRS PRN PO MILD PAIN / TEMP > 100.3'F 12/10/21 13:30 12/10/21 13:59 DC Multi-Ingredient Ointment (Analgesic [place]) 1 abraham PRN QID PRN TP MUSCLE PAIN 12/10/21 13:30 12/10/21 13:59 DC Al Hydroxide/Mg Hydroxide (Mylanta Plus Xs) 15 ml PRN AFTMEALHC PRN PO DYSPEPSIA 12/10/21 13:30 12/10/21 13:59 DC Magnesium Hydroxide (Milk Of Magnesia) 2,400 mg PRN QHS PRN PO CONSTIPATION 12/10/21 13:30 12/10/21 13:59 DC Cetirizine HCl (ZyrTEC) 10 mg DAILY PO 12/11/21 09:00 12/15/21 08:00 Levothyroxine Sodium (Synthroid) 25 mcg DAILYAC PO 12/11/21 07:30 12/12/21 15:31 DC 12/12/21 07:45 Multivitamins/ Calcium (Thera-M Plus) 1 tab DAILY PO 12/11/21 09:00 12/15/21 07:58 Rivaroxaban (Xarelto) 15 mg 1700 PO 12/10/21 17:00 12/15/21 17:23 Acetaminophen (Tylenol) 650 mg PRN Q4HRS PRN PO MILD PAIN / TEMP > 100.3'F 12/10/21 14:00 Acetaminophen (Tylenol Supp) 650 mg PRN Q4HRS PRN RC 2nd choice pain fever 12/10/21 14:00 Alprazolam (Xanax) 0.25 mg PRN Q6HRS PRN PO ANXIETY / AGITATION 12/10/21 14:15 Aripiprazole (Abilify) 5 mg DAILY PO 12/11/21 09:00 12/15/21 08:00 Citalopram Hydrobromide (CeleXA) 20 mg DAILY PO 12/11/21 09:00 12/15/21 08:00 Metoprolol Tartrate (Lopressor) 25 mg BID PO 12/10/21 21:00 12/15/21 07:59 Lurasidone HCl (Latuda) 60 mg DAILYWBKFT PO 12/11/21 08:00 12/15/21 08:00 Levothyroxine Sodium (Synthroid) 25 mcg DAILY06 PO 12/13/21 06:00 12/16/21 05:37 I have reviewed the current psychotropics carefully including drug interactions. Risk benefit ratio favors no change other than as noted in my dictated progress note. Diagnosis: Problems: (1) Impulse control disorder, unspecified (2) Anxiety disorder, unspecified (3) Dementia, vascular, with depression (4) Dementia, vascular, with delusions (5) Dementia in Alzheimer's disease with depression (6) Dementia in Alzheimer's disease with delusions (7) Dementia of the Alzheimer's type with early onset with behavioral disturbance (8) Major neurocognitive disorder ISAURO BECKHAM MD Dec 16, 2021 07:17
--- NOTE | 2021-12-16 07:38 | PDOC ---
Exam Note: Don Note: This note is a late entry for 12/15/2021 covers elements not covered in my initial note. Subjective: The patient was seen on telehealth rounds on 12/15/2021 with Rigoberto CAPUTO, discussed and reviewed the chart. The patient slept 9-1/2 hours previous night. She has been ambulating up and down the hallway and as I met with her on telehealth rounds she was walking in the hallway once again. She was quite verbal and interactive. We had discussion about the latoya of her psychosis and she was insightful. We discussed how she should keep her mind busy either reading books or solving puzzles, crosswords or doing other activities, hobbies, listening to audio books or music whatever she enjoys to keep her mind busy to prevent it from obsessing about minor things and then magnifying them through a point of psychosis. She seemed insightful understanding of this. No suicidal or homicidal ideation. Review of Systems: No CV, , pulmonary, eye, ENT system symptoms on review. Mental Status Exam: The patient is reasonably oriented. Speech coherent. Abstraction fair. Computation impaired. Language function intact. Attention span fair. No clear psychotic symptoms, suicidal or homicidal ideation. Laboratory Data: Reviewed. 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 Anxiety disorder unspecified. Impulse control disorder unspecified. Psychotic disorder unspecified. Plan: Continue current psychotropics. Assessment: Vital Signs/I&O: Vital Signs Date Time Temp Pulse Resp B/P (MAP) Pulse Ox O2 Delivery O2 Flow Rate FiO2 12/16/21 06:09 98.9 67 16 154/70 (98) 96 12/15/21 15:33 Room Air 12/10/21 14:08 96.0 I & O 12/15/21 12/15/21 12/16/21 14:59 22:59 06:59 Intake Total 600 ml 520 ml Balance 600 ml 520 ml Current Medications: Meds: Current Medications Medications (Trade) Dose Ordered Sig/Ted Route PRN Reason Start Time Stop Time Status Last Admin Dose Admin Acetaminophen (Tylenol) 650 mg PRN Q6HRS PRN PO MILD PAIN / TEMP > 100.3'F 12/10/21 13:30 12/10/21 13:59 DC Multi-Ingredient Ointment (Analgesic [place]) 1 abraham PRN QID PRN TP MUSCLE PAIN 12/10/21 13:30 12/10/21 13:59 DC Al Hydroxide/Mg Hydroxide (Mylanta Plus Xs) 15 ml PRN AFTMEALHC PRN PO DYSPEPSIA 12/10/21 13:30 12/10/21 13:59 DC Magnesium Hydroxide (Milk Of Magnesia) 2,400 mg PRN QHS PRN PO CONSTIPATION 12/10/21 13:30 12/10/21 13:59 DC Cetirizine HCl (ZyrTEC) 10 mg DAILY PO 12/11/21 09:00 12/15/21 08:00 Levothyroxine Sodium (Synthroid) 25 mcg DAILYAC PO 12/11/21 07:30 12/12/21 15:31 DC 12/12/21 07:45 Multivitamins/ Calcium (Thera-M Plus) 1 tab DAILY PO 12/11/21 09:00 12/15/21 07:58 Rivaroxaban (Xarelto) 15 mg 1700 PO 12/10/21 17:00 12/15/21 17:23 Acetaminophen (Tylenol) 650 mg PRN Q4HRS PRN PO MILD PAIN / TEMP > 100.3'F 12/10/21 14:00 Acetaminophen (Tylenol Supp) 650 mg PRN Q4HRS PRN RC 2nd choice pain fever 12/10/21 14:00 Alprazolam (Xanax) 0.25 mg PRN Q6HRS PRN PO ANXIETY / AGITATION 12/10/21 14:15 Aripiprazole (Abilify) 5 mg DAILY PO 12/11/21 09:00 12/15/21 08:00 Citalopram Hydrobromide (CeleXA) 20 mg DAILY PO 12/11/21 09:00 12/15/21 08:00 Metoprolol Tartrate (Lopressor) 25 mg BID PO 12/10/21 21:00 12/15/21 07:59 Lurasidone HCl (Latuda) 60 mg DAILYWBKFT PO 12/11/21 08:00 12/15/21 08:00 Levothyroxine Sodium (Synthroid) 25 mcg DAILY06 PO 12/13/21 06:00 12/16/21 05:37 I have reviewed the current psychotropics carefully including drug interactions. Risk benefit ratio favors no change other than as noted in my dictated progress note. 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
[2021-12-16] MEDS: CETIRIZINE HCL 10 MG TABLET PO SCH (08:29)
[2021-12-16] MEDS: CITALOPRAM 20 MG TABLET. PO SCH (08:29)
[2021-12-16] MEDS: LURASIDONE 40 MG TABLET. PO SCH (08:30)
[2021-12-16] MEDS: MULTIVITAMIN with MINERAL TABLET. PO SCH (08:30)
[2021-12-16] MEDS: ARIPiprazole 5 MG TABLET PO SCH (08:30)
[2021-12-16] MEDS: METOPROLOL TART IMMED RELEASE 25 MG TABLET. PO SCH ×2 (08:30→20:02)
[2021-12-16 15:30] VITALS: BP 108/53
[2021-12-16] MEDS: RIVAROXABAN 15 MG TABLET. PO SCH (17:26)
--- NOTE | 2021-12-16 21:41 | PDOC ---
Exam Note: Don Note: Please also refer to the separate dictated note~for this date of service dictated separately.~Patient seen individually. Discussed the patient with Nursing staff reviewed the chart.~Reviewed interim history and current functioning. Reviewed vital signs,~Labs/ Radiology~and current medications noted below. Continue current treatment with the changes noted in the dictated addendum note Assessment: Vital Signs/I&O: Vital Signs Date Time Temp Pulse Resp B/P (MAP) Pulse Ox O2 Delivery O2 Flow Rate FiO2 12/16/21 20:02 60 108/53 12/16/21 15:30 97.8 18 97 Room Air 12/10/21 14:08 96.0 I & O 12/15/21 12/15/21 12/16/21 15:00 23:00 07:00 Intake Total 600 ml 520 ml Balance 600 ml 520 ml Current Medications: Meds: Current Medications Medications (Trade) Dose Ordered Sig/Ted Route PRN Reason Start Time Stop Time Status Last Admin Dose Admin Acetaminophen (Tylenol) 650 mg PRN Q6HRS PRN PO MILD PAIN / TEMP > 100.3'F 12/10/21 13:30 12/10/21 13:59 DC Multi-Ingredient Ointment (Analgesic [place]) 1 abraham PRN QID PRN TP MUSCLE PAIN 12/10/21 13:30 12/10/21 13:59 DC Al Hydroxide/Mg Hydroxide (Mylanta Plus Xs) 15 ml PRN AFTMEALHC PRN PO DYSPEPSIA 12/10/21 13:30 12/10/21 13:59 DC Magnesium Hydroxide (Milk Of Magnesia) 2,400 mg PRN QHS PRN PO CONSTIPATION 12/10/21 13:30 12/10/21 13:59 DC Cetirizine HCl (ZyrTEC) 10 mg DAILY PO 12/11/21 09:00 12/16/21 08:29 Levothyroxine Sodium (Synthroid) 25 mcg DAILYAC PO 12/11/21 07:30 12/12/21 15:31 DC 12/12/21 07:45 Multivitamins/ Calcium (Thera-M Plus) 1 tab DAILY PO 12/11/21 09:00 12/16/21 08:30 Rivaroxaban (Xarelto) 15 mg 1700 PO 12/10/21 17:00 12/16/21 17:26 Acetaminophen (Tylenol) 650 mg PRN Q4HRS PRN PO MILD PAIN / TEMP > 100.3'F 12/10/21 14:00 Acetaminophen (Tylenol Supp) 650 mg PRN Q4HRS PRN RC 2nd choice pain fever 12/10/21 14:00 Alprazolam (Xanax) 0.25 mg PRN Q6HRS PRN PO ANXIETY / AGITATION 12/10/21 14:15 Aripiprazole (Abilify) 5 mg DAILY PO 12/11/21 09:00 12/16/21 17:36 DC 12/16/21 08:30 Citalopram Hydrobromide (CeleXA) 20 mg DAILY PO 12/11/21 09:00 12/16/21 08:29 Metoprolol Tartrate (Lopressor) 25 mg BID PO 12/10/21 21:00 12/16/21 08:30 Lurasidone HCl (Latuda) 60 mg DAILYWBKFT PO 12/11/21 08:00 12/16/21 08:30 Levothyroxine Sodium (Synthroid) 25 mcg DAILY06 PO 12/13/21 06:00 12/16/21 05:37 Aripiprazole (Abilify) 7.5 mg DAILY PO 12/17/21 09:00 I have reviewed the current psychotropics carefully including drug interactions. Risk benefit ratio favors no change other than as noted in my dictated progress note. Diagnosis: Problems: (1) Impulse control disorder, unspecified (2) Anxiety disorder, unspecified (3) Dementia, vascular, with depression (4) Dementia, vascular, with delusions (5) Dementia in Alzheimer's disease with depression (6) Dementia in Alzheimer's disease with delusions (7) Dementia of the Alzheimer's type with early onset with behavioral disturbance (8) Major neurocognitive disorder ISAURO BECKHAM MD Dec 16, 2021 21:41
[2021-12-16 22:31] LABS: BILIRUBIN,URINE NEG (NEG); CLARITY,URINE CLEAR; COLOR,URINE YELLOW; GLUCOSE,URINE NEG (NEG); NITRITE,URINE NEG (NEG); UROBILINOGEN,URINE 0.2 mg/dL (0.2 mg/dL)
[2021-12-16 22:33] LABS: BACTERIA,URINE 0 /HPF (0-FEW); RBC,URINE 0 /HPF (0-2); SQUAMOUS EPITHELIAL CELL,UR OCC /LPF; WBC,URINE RARE /HPF (0-4)
[2021-12-17] MEDS: LEVOTHYROXINE 25 MCG TABLET. PO SCH (05:07)
[2021-12-17 06:16] VITALS: BP 162/80
[2021-12-17] MEDS: CETIRIZINE HCL 10 MG TABLET PO SCH (08:02)
[2021-12-17] MEDS: LURASIDONE 40 MG TABLET. PO SCH (08:03)
[2021-12-17] MEDS: MULTIVITAMIN with MINERAL TABLET. PO SCH (08:04)
[2021-12-17] MEDS: ARIPiprazole 5 MG TABLET PO SCH (08:04)
[2021-12-17] MEDS: METOPROLOL TART IMMED RELEASE 25 MG TABLET. PO SCH ×2 (08:05→19:55)
[2021-12-17] MEDS: CITALOPRAM 20 MG TABLET. PO SCH (08:05)
--- NOTE | 2021-12-17 08:13 | PDOC ---
Exam Note: Don Note: This note is a late entry for 12/16/2021 covers elements not covered in my initial note. Subjective: The patient was seen on telehealth rounds on 12/16/2021 with Kendra CAPUTO, discussed and reviewed the chart. The patient slept 8 hours previous night. Overall the patient has been little more paranoid. She has been telling the other patients that nursing staff is trying to kill her because of what she thinks she had written on the wall which she interprets as being the oxygen saturation of those patients. She is also expressing fear that she would kill someone and does appear more psychotic and we will increase the Abilify from 5 mg a day to 7.5 mg a day. Review of Systems: No CV, , pulmonary, eye, ENT system symptoms on review. Mental Status Exam: The patient is reasonably oriented. Speech coherent. Abst raction fair. Computation impaired. Language function intact. Attention span short. Mood and affect quite withdrawn. She is quite apprehensive, anxious. I had discussion with her about her diagnosis and the increase in Abilify and she is agreeable to it. She does appear quite suspicious during the individual visit. Laboratory Data: Reviewed. Impression: Major neurocognitive disorder, early with psychotic features. Anxiety disorder unspecified. Mild cognitive impairment. Major depressive disorder with psychotic features. Plan: Increase the Abilify as noted. Maintain Celexa and she is on Latuda 60 mg a day. If psychotic symptoms persists we may change both the Abilify and Latuda to Risperdal. Assessment: Vital Signs/I&O: Vital Signs Date Time Temp Pulse Resp B/P (MAP) Pulse Ox O2 Delivery O2 Flow Rate FiO2 12/17/21 08:05 79 162/80 12/17/21 06:16 98.8 16 94 Room Air I & O 12/16/21 12/16/21 12/17/21 15:00 23:00 07:00 Intake Total 600 ml 360 ml Balance 600 ml 360 ml Labs: Laboratory Tests Test 12/16/21 20:30 Urine Collection Type Unknown Urine Color Yellow Urine Clarity Clear Urine pH 7.0 Urine Specific [place] 1.025 Urine Protein Neg (NEG-TRACE) Urine Glucose (UA) Neg mg/dL (NEG) Urine Ketones (Stick) Neg mg/dL (NEG) Urine Blood Neg (NEG) Urine Nitrite Neg (NEG) Urine Bilirubin Neg (NEG) Urine Urobilinogen Dipstick 0.2 mg/dL (0.2 mg/dL) Urine Leukocyte Esterase Neg (NEG) Urine RBC 0 /HPF (0-2) Urine WBC Rare /HPF (0-4) Urine Squamous Epithelial Cells Occ /LPF Urine Bacteria 0 /HPF (0-FEW) Current Medications: Meds: Laboratory Tests Test 12/16/21 20:30 Urine Collection Type Unknown Urine Color Yellow Urine Clarity Clear Urine pH 7.0 Urine Specific [place] 1.025 Urine Protein Neg Urine Glucose (UA) Neg mg/dL Urine Ketones (Stick) Neg mg/dL Urine Blood Neg Urine Nitrite Neg Urine Bilirubin Neg Urine Urobilinogen Dipstick 0.2 mg/dL Urine Leukocyte Esterase Neg Urine RBC 0 /HPF Urine WBC Rare /HPF Urine Squamous Epithelial Cells Occ /LPF Urine Bacteria 0 /HPF Current Medications Medications (Trade) Dose Ordered Sig/Ted Route PRN Reason Start Time Stop Time Status Last Admin Dose Admin Acetaminophen (Tylenol) 650 mg PRN Q6HRS PRN PO MILD PAIN / TEMP > 100.3'F 12/10/21 13:30 12/10/21 13:59 DC Multi-Ingredient Ointment (Analgesic [place]) 1 abraham PRN QID PRN TP MUSCLE PAIN 12/10/21 13:30 12/10/21 13:59 DC Al Hydroxide/Mg Hydroxide (Mylanta Plus Xs) 15 ml PRN AFTMEALHC PRN PO DYSPEPSIA 12/10/21 13:30 12/10/21 13:59 DC Magnesium Hydroxide (Milk Of Magnesia) 2,400 mg PRN QHS PRN PO CONSTIPATION 12/10/21 13:30 12/10/21 13:59 DC Cetirizine HCl (ZyrTEC) 10 mg DAILY PO 12/11/21 09:00 12/17/21 08:02 Levothyroxine Sodium (Synthroid) 25 mcg DAILYAC PO 12/11/21 07:30 12/12/21 15:31 DC 12/12/21 07:45 Multivitamins/ Calcium (Thera-M Plus) 1 tab DAILY PO 12/11/21 09:00 12/17/21 08:04 Rivaroxaban (Xarelto) 15 mg 1700 PO 12/10/21 17:00 12/16/21 17:26 Acetaminophen (Tylenol) 650 mg PRN Q4HRS PRN PO MILD PAIN / TEMP > 100.3'F 12/10/21 14:00 Acetaminophen (Tylenol Supp) 650 mg PRN Q4HRS PRN RC 2nd choice pain fever 12/10/21 14:00 Alprazolam (Xanax) 0.25 mg PRN Q6HRS PRN PO ANXIETY / AGITATION 12/10/21 14:15 Aripiprazole (Abilify) 5 mg DAILY PO 12/11/21 09:00 12/16/21 17:36 DC 12/16/21 08:30 Citalopram Hydrobromide (CeleXA) 20 mg DAILY PO 12/11/21 09:00 12/17/21 08:05 Metoprolol Tartrate (Lopressor) 25 mg BID PO 12/10/21 21:00 12/17/21 08:05 Lurasidone HCl (Latuda) 60 mg DAILYWBKFT PO 12/11/21 08:00 12/17/21 08:03 Levothyroxine Sodium (Synthroid) 25 mcg DAILY06 PO 12/13/21 06:00 12/17/21 05:07 Aripiprazole (Abilify) 7.5 mg DAILY PO 12/17/21 09:00 12/17/21 08:04 Current Medications Medications (Trade) Dose Ordered Sig/Ted Route PRN Reason Start Time Stop Time Status Last Admin Dose Admin Aripiprazole (Abilify) 7.5 mg DAILY PO 12/17/21 09:00 12/17/21 08:04 I have reviewed the current psychotropics carefully including drug interactions. Risk benefit ratio favors no change other than as noted in my dictated progress note. Diagnosis: Problems: (1) Impulse control disorder, unspecified (2) Anxiety disorder, unspecified (3) Dementia, vascular, with depression (4) Dementia, vascular, with delusions (5) Dementia in Alzheimer's disease with depression (6) Dementia in Alzheimer's disease with delusions (7) Dementia of the Alzheimer's type with early onset with behavioral disturbance (8) Major neurocognitive disorder ISAURO BECKHAM MD Dec 17, 2021 08:13
[2021-12-17 16:23] VITALS: BP 110/61
[2021-12-17] MEDS: RIVAROXABAN 15 MG TABLET. PO SCH (16:37)
--- NOTE | 2021-12-17 21:44 | PDOC ---
Exam Note: Don Note: Please also refer to the separate dictated note~for this date of service dictated separately.~Patient seen individually. Discussed the patient with Nursing staff reviewed the chart.~Reviewed interim history and current functioning. Reviewed vital signs,~Labs/ Radiology~and current medications noted below. Continue current treatment with the changes noted in the dictated addendum note Assessment: Vital Signs/I&O: Vital Signs Date Time Temp Pulse Resp B/P (MAP) Pulse Ox O2 Delivery O2 Flow Rate FiO2 12/17/21 19:55 70 110/61 12/17/21 16:23 97.6 16 98 12/17/21 06:16 Room Air I & O 12/16/21 12/16/21 12/17/21 15:00 23:00 07:00 Intake Total 600 ml 360 ml Balance 600 ml 360 ml Current Medications: Meds: Current Medications Medications (Trade) Dose Ordered Sig/Ted Route PRN Reason Start Time Stop Time Status Last Admin Dose Admin Acetaminophen (Tylenol) 650 mg PRN Q6HRS PRN PO MILD PAIN / TEMP > 100.3'F 12/10/21 13:30 12/10/21 13:59 DC Multi-Ingredient Ointment (Analgesic [place]) 1 abraham PRN QID PRN TP MUSCLE PAIN 12/10/21 13:30 12/10/21 13:59 DC Al Hydroxide/Mg Hydroxide (Mylanta Plus Xs) 15 ml PRN AFTMEALHC PRN PO DYSPEPSIA 12/10/21 13:30 12/10/21 13:59 DC Magnesium Hydroxide (Milk Of Magnesia) 2,400 mg PRN QHS PRN PO CONSTIPATION 12/10/21 13:30 12/10/21 13:59 DC Cetirizine HCl (ZyrTEC) 10 mg DAILY PO 12/11/21 09:00 12/17/21 08:02 Levothyroxine Sodium (Synthroid) 25 mcg DAILYAC PO 12/11/21 07:30 12/12/21 15:31 DC 12/12/21 07:45 Multivitamins/ Calcium (Thera-M Plus) 1 tab DAILY PO 12/11/21 09:00 12/17/21 08:04 Rivaroxaban (Xarelto) 15 mg 1700 PO 12/10/21 17:00 12/17/21 16:37 Acetaminophen (Tylenol) 650 mg PRN Q4HRS PRN PO MILD PAIN / TEMP > 100.3'F 12/10/21 14:00 Acetaminophen (Tylenol Supp) 650 mg PRN Q4HRS PRN RC 2nd choice pain fever 12/10/21 14:00 Alprazolam (Xanax) 0.25 mg PRN Q6HRS PRN PO ANXIETY / AGITATION 12/10/21 14:15 Aripiprazole (Abilify) 5 mg DAILY PO 12/11/21 09:00 12/16/21 17:36 DC 12/16/21 08:30 Citalopram Hydrobromide (CeleXA) 20 mg DAILY PO 12/11/21 09:00 12/17/21 08:05 Metoprolol Tartrate (Lopressor) 25 mg BID PO 12/10/21 21:00 12/17/21 19:55 Lurasidone HCl (Latuda) 60 mg DAILYWBKFT PO 12/11/21 08:00 12/17/21 08:03 Levothyroxine Sodium (Synthroid) 25 mcg DAILY06 PO 12/13/21 06:00 12/17/21 05:07 Aripiprazole (Abilify) 7.5 mg DAILY PO 12/17/21 09:00 12/17/21 08:04 Current Medications Medications (Trade) Dose Ordered Sig/Ted Route PRN Reason Start Time Stop Time Status Last Admin Dose Admin Aripiprazole (Abilify) 7.5 mg DAILY PO 12/17/21 09:00 12/17/21 08:04 I have reviewed the current psychotropics carefully including drug interactions. Risk benefit ratio favors no change other than as noted in my dictated progress note. Diagnosis: Problems: (1) Impulse control disorder, unspecified (2) Anxiety disorder, unspecified (3) Dementia, vascular, with depression (4) Dementia, vascular, with delusions (5) Dementia in Alzheimer's disease with depression (6) Dementia in Alzheimer's disease with delusions (7) Dementia of the Alzheimer's type with early onset with behavioral disturbance (8) Major neurocognitive disorder ISAURO BECKHAM MD Dec 17, 2021 21:44
[2021-12-18 05:28] VITALS: BP 140/64
[2021-12-18] MEDS: LEVOTHYROXINE 25 MCG TABLET. PO SCH (05:43)
[2021-12-18] MEDS: MULTIVITAMIN with MINERAL TABLET. PO SCH (07:58)
[2021-12-18] MEDS: ARIPiprazole 5 MG TABLET PO SCH (07:58)
[2021-12-18] MEDS: CETIRIZINE HCL 10 MG TABLET PO SCH (07:58)
[2021-12-18 07:59] VITALS: BP 140/64
[2021-12-18] MEDS: LURASIDONE 40 MG TABLET. PO SCH (07:59)
[2021-12-18] MEDS: METOPROLOL TART IMMED RELEASE 25 MG TABLET. PO SCH (07:59)
[2021-12-18] MEDS: CITALOPRAM 20 MG TABLET. PO SCH (07:59)
--- NOTE | 2021-12-18 08:15 | PDOC ---
Exam Note: Don Note: This note is a late entry for 12/17/2021 covers elements not covered in my initial note. Subjective: The patient was reviewed on 12/17/2021 with Muriel CAPUTO, discussed and reviewed the chart. The patient slept 9-1/2 hours previous night. Overall the patient has been doing reasonably well and has not manifested any paranoia today. She was somewhat paranoid. Yesterday Abilify was increased and she is tolerating this well. Review of Systems: Per nursing report, no CV, , pulmonary, eye, ENT system symptoms on review. Mental Status Exam: The patient is reasonably oriented. Speech coherent. Abstraction fair. Computation impaired. Language function intact. Mood and affect appears improved, less paranoid. Laboratory Data: Reviewed. Impression: Major neurocognitive disorder, early with psychotic features. Anxiety disorder unspecified. Mild cognitive impairment. Major depressive disorder with psychotic features. Plan: No change from initial note. Transition to [facility] tomorrow. Assessment: Vital Signs/I&O: Vital Signs Date Time Temp Pulse Resp B/P (MAP) Pulse Ox O2 Delivery O2 Flow Rate FiO2 12/18/21 07:59 66 140/64 12/18/21 05:28 97.9 18 96 12/17/21 06:16 Room Air I & O 12/17/21 12/17/21 12/18/21 15:00 23:00 07:00 Intake Total 840 ml 455 ml Balance 840 ml 455 ml Current Medications: Meds: Current Medications Medications (Trade) Dose Ordered Sig/Ted Route PRN Reason Start Time Stop Time Status Last Admin Dose Admin Acetaminophen (Tylenol) 650 mg PRN Q6HRS PRN PO MILD PAIN / TEMP > 100.3'F 12/10/21 13:30 12/10/21 13:59 DC Multi-Ingredient Ointment (Analgesic [place]) 1 abraham PRN QID PRN TP MUSCLE PAIN 12/10/21 13:30 12/10/21 13:59 DC Al Hydroxide/Mg Hydroxide (Mylanta Plus Xs) 15 ml PRN AFTMEALHC PRN PO DYSPEPSIA 12/10/21 13:30 12/10/21 13:59 DC Magnesium Hydroxide (Milk Of Magnesia) 2,400 mg PRN QHS PRN PO CONSTIPATION 12/10/21 13:30 12/10/21 13:59 DC Cetirizine HCl (ZyrTEC) 10 mg DAILY PO 12/11/21 09:00 12/18/21 07:58 Levothyroxine Sodium (Synthroid) 25 mcg DAILYAC PO 12/11/21 07:30 12/12/21 15:31 DC 12/12/21 07:45 Multivitamins/ Calcium (Thera-M Plus) 1 tab DAILY PO 12/11/21 09:00 12/18/21 07:58 Rivaroxaban (Xarelto) 15 mg 1700 PO 12/10/21 17:00 12/17/21 16:37 Acetaminophen (Tylenol) 650 mg PRN Q4HRS PRN PO MILD PAIN / TEMP > 100.3'F 12/10/21 14:00 Acetaminophen (Tylenol Supp) 650 mg PRN Q4HRS PRN RC 2nd choice pain fever 12/10/21 14:00 Alprazolam (Xanax) 0.25 mg PRN Q6HRS PRN PO ANXIETY / AGITATION 12/10/21 14:15 Aripiprazole (Abilify) 5 mg DAILY PO 12/11/21 09:00 12/16/21 17:36 DC 12/16/21 08:30 Citalopram Hydrobromide (CeleXA) 20 mg DAILY PO 12/11/21 09:00 12/18/21 07:59 Metoprolol Tartrate (Lopressor) 25 mg BID PO 12/10/21 21:00 12/18/21 07:59 Lurasidone HCl (Latuda) 60 mg DAILYWBKFT PO 12/11/21 08:00 12/18/21 07:59 Levothyroxine Sodium (Synthroid) 25 mcg DAILY06 PO 12/13/21 06:00 12/18/21 05:43 Aripiprazole (Abilify) 7.5 mg DAILY PO 12/17/21 09:00 12/18/21 07:58 Current Medications Medications (Trade) Dose Ordered Sig/Ted Route PRN Reason Start Time Stop Time Status Last Admin Dose Admin Aripiprazole (Abilify) 7.5 mg DAILY PO 12/17/21 09:00 12/18/21 07:58 I have reviewed the current psychotropics carefully including drug interactions. Risk benefit ratio favors no change other than as noted in my dictated progress note. Diagnosis: Problems: (1) Impulse control disorder, unspecified (2) Anxiety disorder, unspecified (3) Dementia, vascular, with depression (4) Dementia, vascular, with delusions (5) Dementia in Alzheimer's disease with depression (6) Dementia in Alzheimer's disease with delusions (7) Dementia of the Alzheimer's type with early onset with behavioral disturbance (8) Major neurocognitive disorder ISAURO BECKHAM MD Dec 18, 2021 08:15
--- NOTE | 2021-12-18 21:28 | PDOC ---
Exam Note: Don Note: Please also refer to the separate dictated note~for this date of service dictated separately.~Patient seen individually. Discussed the patient with Nursing staff reviewed the chart.~Reviewed interim history and current functioning. Reviewed vital signs,~Labs/ Radiology~and current medications noted below. Continue current treatment with the changes noted in the dictated addendum note Assessment: Vital Signs/I&O: Vital Signs Date Time Temp Pulse Resp B/P (MAP) Pulse Ox O2 Delivery O2 Flow Rate FiO2 12/18/21 07:59 66 140/64 12/18/21 05:28 97.9 18 96 12/17/21 06:16 Room Air I & O 12/17/21 12/17/21 12/18/21 15:00 23:00 07:00 Intake Total 840 ml 455 ml Balance 840 ml 455 ml Current Medications: Meds: Current Medications Medications (Trade) Dose Ordered Sig/Ted Route PRN Reason Start Time Stop Time Status Last Admin Dose Admin Acetaminophen (Tylenol) 650 mg PRN Q6HRS PRN PO MILD PAIN / TEMP > 100.3'F 12/10/21 13:30 12/10/21 13:59 DC Multi-Ingredient Ointment (Analgesic [place]) 1 abraham PRN QID PRN TP MUSCLE PAIN 12/10/21 13:30 12/10/21 13:59 DC Al Hydroxide/Mg Hydroxide (Mylanta Plus Xs) 15 ml PRN AFTMEALHC PRN PO DYSPEPSIA 12/10/21 13:30 12/10/21 13:59 DC Magnesium Hydroxide (Milk Of Magnesia) 2,400 mg PRN QHS PRN PO CONSTIPATION 12/10/21 13:30 12/10/21 13:59 DC Cetirizine HCl (ZyrTEC) 10 mg DAILY PO 12/11/21 09:00 12/18/21 14:47 DC 12/18/21 07:58 Levothyroxine Sodium (Synthroid) 25 mcg DAILYAC PO 12/11/21 07:30 12/12/21 15:31 DC 12/12/21 07:45 Multivitamins/ Calcium (Thera-M Plus) 1 tab DAILY PO 12/11/21 09:00 12/18/21 14:47 DC 12/18/21 07:58 Rivaroxaban (Xarelto) 15 mg 1700 PO 12/10/21 17:00 12/18/21 14:47 DC 12/17/21 16:37 Acetaminophen (Tylenol) 650 mg PRN Q4HRS PRN PO MILD PAIN / TEMP > 100.3'F 12/10/21 14:00 12/18/21 14:47 DC Acetaminophen (Tylenol Supp) 650 mg PRN Q4HRS PRN RC 2nd choice pain fever 12/10/21 14:00 12/18/21 14:47 DC Alprazolam (Xanax) 0.25 mg PRN Q6HRS PRN PO ANXIETY / AGITATION 12/10/21 14:15 12/18/21 14:47 DC Aripiprazole (Abilify) 5 mg DAILY PO 12/11/21 09:00 12/16/21 17:36 DC 12/16/21 08:30 Citalopram Hydrobromide (CeleXA) 20 mg DAILY PO 12/11/21 09:00 12/18/21 14:47 DC 12/18/21 07:59 Metoprolol Tartrate (Lopressor) 25 mg BID PO 12/10/21 21:00 12/18/21 14:47 DC 12/18/21 07:59 Lurasidone HCl (Latuda) 60 mg DAILYWBKFT PO 12/11/21 08:00 12/18/21 14:47 DC 12/18/21 07:59 Levothyroxine Sodium (Synthroid) 25 mcg DAILY06 PO 12/13/21 06:00 12/18/21 14:47 DC 12/18/21 05:43 Aripiprazole (Abilify) 7.5 mg DAILY PO 12/17/21 09:00 12/18/21 14:47 DC 12/18/21 07:58 I have reviewed the current psychotropics carefully including drug interactions. Risk benefit ratio favors no change other than as noted in my dictated progress note. Diagnosis: Problems: (1) Impulse control disorder, unspecified (2) Anxiety disorder, unspecified (3) Dementia, vascular, with depression (4) Dementia, vascular, with delusions (5) Dementia in Alzheimer's disease with depression (6) Dementia in Alzheimer's disease with delusions (7) Dementia of the Alzheimer's type with early onset with behavioral disturbance (8) Major neurocognitive disorder BHAVANI,MAN M MD Dec 18, 2021 21:28
--- NOTE | 2021-12-20 00:02 | DS ---
DATE OF DISCHARGE: 12/18/2021 DISCHARGE SUMMARY/PSYCHIATRIC PROGRESS VISIT This is a late entry, date of service 12/18, covers elements not covered in my initial note of 12/18. REASON FOR ADMISSION: Please refer to the admission history for details. Briefly, the patient is an 81-year-old female who returned to from [facility] surgical floor after quarantine for being COVID positive. She was initially admitted by Dr. Sosa during my vacation consequent to a diagnosis of psychotic disorder within the context of early vascular dementia with behavioral disturbance. The patient had been extremely paranoid, suspicious, believes people were trying to hurt her and kill her, amongst other psychotic symptoms. [place] is referred to the admission history for details. She was being stabilized on psychotropics adjusted on [facility]. When she became COVID positive, was transitioned for quarantine and now returns back to . SIGNIFICANT FINDINGS AND CLINICAL COURSE: Following admission, the patient was seen daily individually by myself from a psychiatric standpoint, medical followup, Dr. Alas/Dr. Wynne. The patient appeared much less psychotic on a combination of Abilify, which was initially 5 mg a day when she returned to , but there was some recurrence of her psychotic symptoms and this was then increased to 7.5 mg a day. She was also on Celexa 20 mg a day, Xanax 0.25 mg q. 6 hours p.r.n. anxiety prior to discharge on 12/18. REVIEW OF SYSTEMS: No CV, , pulmonary, eye system symptoms on review. MENTAL STATUS EXAMINATION: The patient is reasonably oriented. Speech coherent, has some latency. Abstraction fair. Computation impaired. Language function intact. Mood and affect improved. Psychotic symptoms are much stabilized. No suicidal or homicidal ideation at discharge. FINAL DIAGNOSES: Psychotic disorder, unspecified versus major neurocognitive disorder, early vascular with delusion, depression, behavioral disturbance, anxiety disorder, unspecified; impulse control disorder, unspecified. DISCHARGE MEDICATIONS: Please refer to the MRAD. She was transitioned to [facility] with outpatient psychiatric followup with Dr. Aviva Maxwell and medically with her primary care physician. Time for discharge and management greater than 30 minutes. TYRESE/PATSY/MILDRED DR: TYRESE/avelina TID: [id number]
== END 2021-12-18 14:00 | DRG 885 ==
LOC: GEROPSY 12:40
PROVIDERS: ADMIT Psychiatry & Neurology Psychiatry; ATTEND Psychiatry & Neurology Psychiatry
DX: F32.3 Major depressive disorder, single episode, severe with psychotic features (principal); F01.51 Vascular dementia, unspecified severity, with behavioral disturbance; F02.81 Dementia in other diseases classified elsewhere, unspecified severity, with behavioral disturbance; Z66 Do not resuscitate; G30.9 Alzheimer's disease, unspecified; F41.9 Anxiety disorder, unspecified; F63.9 Impulse disorder, unspecified; E03.9 Hypothyroidism, unspecified; I48.91 Unspecified atrial fibrillation; K58.9 Irritable bowel syndrome, unspecified; Z95.2 Presence of prosthetic heart valve; Z79.899 Other long term (current) drug therapy
CPT/HCPCS: 36415; 80053; 80061; 81001; 82306; 82607; 83036; 83540; 83550; 83735; 84436; 84443; 84480; 85025; 85379; 86592; 93005; 97116; 97530